=== PATIENT | female | born 1975 | race American Indian/Alaskan Native ===

== ENCOUNTER 2020-03-29 04:19 | Inpatient (IN) | payer OTHER ==
[2020-03-29 05:46] LABS: Hematocrit 30.1 % (30.3-42.9); Hemoglobin 9.1 gm/dl (10.1-14.3); Mean Corpuscular HGB Conc 30 % (30-34); Platelet Count 156 K/mm3 (140-440); Red Blood Count 5.12 M/mm3 (3.65-5.03)
[2020-03-29 06:01] LABS: Blood Urea Nitrogen 11 mg/dL (7-17); Calcium 8.9 mg/dL (8.4-10.2); Hemolysis Index 3
[2020-03-29 06:02] LABS: Mean Corpuscular Volume 59 fl (79-97); Red Cell Distribution Width 26.3 % (13.2-15.2)
[2020-03-29 06:03] LABS: BUN/Creatinine Ratio 18
[2020-03-29 06:59] LABS: Anisocytosis 1+; Total Cells Counted 100
[2020-03-29 07:00] LABS: Hypochromasia 2+; Platelet Estimate Consistent w Auto
[2020-03-29] MEDS ORDERED: FUROSEMIDE 40 MG/4 ML INJ IV ONE (07:54)
--- NOTE | 2020-03-29 07:59 | Emergency Department Report ---
ED Shortness of Breath HPI - General Chief Complaint: Dyspnea/Respdistress Stated Complaint: FLUID RETENTION Time Seen by Provider: 03/29/20 07:46 Source: patient, EMS Mode of arrival: Stretcher Limitations: Physical Limitation - History of Present Illness Initial Comments: Patient is 45-year-old female with history of hypertension, congestive heart cary lure and possibly liver cirrhosis. Patient presented to the ER complaining of difficulty in breathing and abdominal distention and bilateral lower extremity swelling for the last few days. Patient stated that she was taking Lasix but she stopped taking it. Patient stated that she drink alcohol daily. Patient denied any chest pain, fever or chills. Patient has significant orthopnea and is slightly tachypneic. MD Complaint: shortness of breath -: days(s) Severity: severe Pain Scale: 7 Known History Of: congestive heart failure - Related Data Previous Rx's Medication Instructions Recorded Last Taken Type HYDROcodone/APAP 5-325 [Sisters 1 each PO Q6HR PRN #10 tablet 07/14/15 Unknown Rx 5/325] Sulfamethoxazole/Trimethoprim 1 each PO Q12H #20 tablet 07/14/15 Unknown Rx [Bactrim DS TAB] Allergies Allergy/AdvReac Type Severity Reaction Status Date / Time No Known Allergies Allergy Verified 07/17/15 12:12 ED Review of Systems ROS: Stated complaint: FLUID RETENTION Other details as noted in HPI Comment: All other systems reviewed and negative Constitutional: denies: chills, fever Respiratory: orthopnea, shortness of breath, SOB with exertion, SOB at rest. denies: cough, wheezing Cardiovascular: dyspnea on exertion, orthopnea. denies: chest pain, palpitations Gastrointestinal: denies: abdominal pain, nausea, vomiting Musculoskeletal: denies: back pain Neurological: denies: headache, weakness, numbness, paresthesias, confusion ED Past Medical Hx - Past Medical History Previous Medical History?: Yes Hx Hypertension: Yes Hx Heart Attack/AMI: Yes - Surgical History Past Surgical History?: Yes Additional Surgical History: bilateral foot surgery as a child - Social History Smoking Status: Current Every Day Smoker Substance Use Type: None - Medications Home Medications: Home Medications Medication Instructions Recorded Confirmed Last Taken Type HYDROcodone/APAP 5-325 [[place]isters 1 each PO Q6HR PRN #10 tablet 07/14/15 Unknown Rx 5/325] Sulfamethoxazole/Trimethoprim 1 each PO Q12H #20 tablet 07/14/15 Unknown Rx [Bactrim DS TAB] ED Physical Exam - General Limitations: Physical Limitation General appearance: alert, in distress (Moderate respiratory distress) - Head Head exam: Present: atraumatic, normocephalic, normal inspection - Eye Eye exam: Present: normal appearance - ENT ENT exam: Present: normal exam, normal orophraynx, mucous membranes moist - Neck Neck exam: Present: normal inspection, full ROM. Absent: tenderness, meningismus, lymphadenopathy, thyromegaly - Respiratory Respiratory exam: Present: respiratory distress, rales, decreased breath sounds. Absent: wheezes, rhonchi, chest wall tenderness, accessory muscle use, pr olonged expiratory - Cardiovascular Cardiovascular Exam: Present: regular rate, normal rhythm, normal heart sounds - GI/Abdominal GI/Abdominal exam: Present: soft, normal bowel sounds. Absent: distended, tenderness, guarding, rebound, rigid, organomegaly, mass, bruit, pulsatile mass, hernia - Extremities Exam Extremities exam: Present: full ROM, normal capillary refill, pedal edema, other (Blisters to both lower extremities.). Absent: tenderness, joint swelling, calf tenderness - Back Exam Back exam: Present: normal inspection, full ROM. Absent: CVA tenderness (R), CVA tenderness (L) - Neurological Exam Neurological exam: Present: alert, oriented X3, CN II-XII intact. Absent: motor sensory deficit - Psychiatric Psychiatric exam: Present: normal mood - Skin Skin exam: Present: warm, intact, normal color ED Course Vital Signs 03/29/20 03/29/20 03/29/20 04:38 07:47 08:00 Temperature 97.7 F Pulse Rate 90 77 Respiratory 18 12 Rate Blood Pressure 156/129 Blood Pressure [Right] O2 Sat by Pulse 97 96 Oximetry 03/29/20 03/29/20 03/29/20 08:06 08:15 08:45 Temperature Pulse Rate 91 H 96 H 92 H Respiratory 23 28 H 29 H Rate Blood Pressure 182/98 182/113 Blood Pressure 170/105 [Right] O2 Sat by Pulse 98 96 Oximetry 03/29/20 03/29/20 09:26 09:30 Temperature Pulse Rate 92 H 89 Respiratory 18 20 Rate Blood Pressure 196/112 190/100 Blood Pressure [Right] O2 Sat by Pulse Oximetry ED Medical Decision Making - Lab Data Result diagrams: 03/29/20 05:21 03/29/20 05:21 - EKG Data -: EKG Interpreted by Me EKG shows normal: sinus rhythm Rate: normal - EKG Data Interpretation: no acute changes - Radiology Data Radiology results: report reviewed, image reviewed - Medical Decision Making Patient is 45-year-old female with history of hypertension, congestive heart failure and possibly liver cirrhosis. Patient presented to the ER complaining of difficulty in breathing and abdominal distention and bilateral lower extremity swelling for the last few days. Patient stated that she was taking Lasix but she stopped taking it. Patient stated that she drink alcohol daily. Patient denied any chest pain, fever or chills. Patient has significant orthopnea and is slightly tachypneic. EKG showed no ST elevation or depression. Chest x-ray showed bilateral pleural effusion and pulmonary edema. Labs reviewed and is unremarkable except for significantly elevated BNP of 4300. Patient received Lasix 60 mg IV and patient already put more than 1 L of urine. Patient stated that she is feeling better. I discussed the patient with Dr. Gore and he agreed to admit the patient to his service for further management. Critical Care Time: Yes Critical care time in (mins) excluding proc time.: 30 Critical care attestation.: If time is entered above; I have spent that time in minutes in the direct care of this critically ill patient, excluding procedure time. ED Disposition Clinical Impression: Acute respiratory distress, CHF exacerbation Disposition: OP ADMIT IP TO THIS HOSP Is pt being admited?: Yes Condition: Stable
[2020-03-29 08:28] LABS: INR 1.27 (0.87-1.13)
[2020-03-29 08:29] LABS: Partial Thromboplastin Time 29.8 Sec. (24.2-36.6)
[2020-03-29 08:41] LABS: Albumin 3.4 g/dL (3.9-5); Bilirubin,Direct 0.2 mg/dL (0-0.2)
[2020-03-29 09:49] LABS: Bilirubin,Urine NEG (Negative); Blood,Urine SM (Negative); Color,Urine Amber (Yellow); Mucus,Urine 2+ /HPF
[2020-03-29 09:55] LABS: Amphetamine Screen,Urine Negative; Benzodiazepines Screen,Urine Negative; Cocaine Screen,Urine Negative; Methadone Screen,Urine Negative; Opiate Screen,Urine Negative
[2020-03-29 10:13] LABS: Cannabinoid Screen,Urine Positive
--- NOTE | 2020-03-29 10:38 | XRay Report ---
CHEST 1 VIEW INDICATION / CLINICAL INFORMATION: Dyspnea. COMPARISON: None available. FINDINGS: SUPPORT DEVICES: None. HEART / MEDIASTINUM: No significant abnormality. LUNGS / PLEURA: Low lung volumes with mild right basilar haziness possibly representing atelectasis w ith small effusion. Left lung is clear. No pneumothorax. ADDITIONAL FINDINGS: Slightly sclerotic appearance of the posterior right fifth rib with nondisplaced fracture deformity. Age-indeterminate. IMPRESSION: 1. Age-indeterminate right posterior fifth rib nondisplaced fracture deformity. 2. Decreased right lung volume with mild right basilar haziness possibly representing atelectasis wit h small effusion. Signer Name: Zeus George MD Signed: 03/29/2020 10:33 AM Workstation Name: [id number]
--- NOTE | 2020-03-29 11:17 | History and Physical Report ---
History of Present Illness Date of examination: 03/29/20 Date of admission: 03/29/20 10:45 Chief complaint: Shortness of breath History of present illness: Patient is 45-year-old female with history of hypertension, congestive heart failure and possibly liver cirrhosis. Patient presented to the ER complaining of difficulty in breathing and abdominal distention and bilateral lower extremity swelling for the last few days. Patient stated that she was taking Lasix but she stopped taking it. Patient admits she drink alcohol daily, marijuana and tobacco use. Patient denied chest pain, fever or chills. Patient on oxygen per N/C. She said her stomach more distended than now about a month ago. ED Work up shows WBC 4.6, Hemoglobin 9.1, potassium 3.5, sodium 139, CR 0.6 Serum albumen 3.4 BNP 4379 Vital sign 190/100, Hr 89, respiration 20 and temp. 97.7 Urine toxicology positive for Marijuana EKG done negative for ST elevation or depression. Chest x-ray showed bilateral pleural effusion and pulmonary edema. Patient was given Lasix 60 mg IV and patient already put more than 1 L of urine. patient seen at bedside in ED patient on oxygen per N/c patient has generalized edema Bilateral leg edema with blisters Distended abdomen-will check CT of the abdomen reviewed lab, mar, and v/s Past History Past Medical History: heart failure, hypertension, liver disease Social history: smoking, alcohol abuse Family history: hypertension Medications and Allergies Allergies Allergy/AdvReac Type Severity Reaction Status Date / Time No Known Allergies Allergy Verified 07/17/15 12:12 Home Medications Medication Instructions Recorded Confirmed Last Taken Type HYDROcodone/APAP 5-325 [[place] 1 each PO Q6HR PRN #10 tablet 07/14/15 Unknown Rx 5/325] Sulfamethoxazole/Trimethoprim 1 each PO Q12H #20 tablet 07/14/15 Unknown Rx [Bactrim DS TAB] Active Meds: Active Medications Hydralazine HCl (Apresoline) 5 mg IV Q4HR PRN PRN Reason: Hypertension Review of Systems Constitutional: weight gain, weakness, chronic pain Cardiovascular: shortness of breath, dyspnea on exertion, high blood pressure, leg edema Respiratory: shortness of breath, congestion Exam - Constitutional Vitals: Temp Pulse Resp BP Pulse Ox 97.7 F 89 20 190/100 96 03/29/20 04:38 03/29/20 09:30 03/29/20 09:30 03/29/20 09:30 03/29/20 08:45 General appearance: Present: no acute distress, mild distress, well-nourished - EENT Eyes: Present: PERRL ENT: hearing intact, clear oral mucosa - Neck Neck: Present: supple, normal ROM - Respiratory Respiratory effort: normal, other (Shortness of breath) Respiratory: bilateral: CTA - Cardiovascular Heart rate: 89 Heart Sounds: Present: S1 & S2. Absent: rub, click - Extremities Extremities: pulses symmetrical Peripheral Pulses: within normal limits - Abdominal General gastrointestinal: Present: soft, non-tender, non-distended, normal bowel sounds Female genitourinary: Present: normal - Integumentary Integumentary: Present: clear, warm, dry - Musculoskeletal Musculoskeletal: strength equal bilaterally, generalized weakness - Psychiatric Psychiatric: appropriate mood/affect, intact judgment & insight, cooperative - Neurologic Neurologic: CNII-XII intact, moves all extremities - Allied Health Allied health notes reviewed: nursing HEART Score - HEART Score Troponin: Troponin T 0.021 ng/mL (0.00-0.029) 03/29/20 07:59 Results - Labs CBC & Chem 7: 03/29/20 05:21 03/29/20 05:21 Labs: Abnormal lab results 03/29/20 03/29/20 03/29/20 Range/Units 05:21 05:21 07:59 RBC 5.12 H (3.65-5.03) M/mm3 Hgb 9.1 L (10.1-14.3) gm/dl Hct 30.1 L (30.3-42.9) % MCV 59 L (79-97) fl MCH 18 L (28-32) pg RDW 26.3 H (13.2-15.2) % Seg Neuts % (Manual) 80.0 H (40.0-70.0) % Lymphocytes % (Manual) 9.0 L (13.4-35.0) % Lymphocytes # (Manual) 0.4 L (1.2-5.4) K/mm3 PT 16.2 H (12.2-14.9) Sec. INR 1.27 H (0.87-1.13) Potassium 3.5 L (3.6-5.0) mmol/L Carbon Dioxide 31 H (22-30) mmol/L Alkaline Phosphatase (35-129) units/L NT-Pro-B Natriuret Pep (0-450) pg/mL Total Protein (6.3-8.2) g/dL Albumin (3.9-5) g/dL 03/29/ Range/Units 07:59 RBC (3.65-5.03) M/mm3 Hgb (10.1-14.3) gm/dl Hct (30.3-42.9) % MCV (79-97) fl MCH (28-32) pg RDW (13.2-15.2) % Seg Neuts % (Manual) (40.0-70.0) % Lymphocytes % (Manual) (13.4-35.0) % Lymphocytes # (Manual) (1.2-5.4) K/mm3 PT (12.2-14.9) Sec. INR (0.87-1.13) Potassium (3.6-5.0) mmol/L Carbon Dioxide (22-30) mmol/L Alkaline Phosphatase 134 H (35-129) units/L NT-Pro-B Natriuret Pep 4379 H (0-450) pg/mL Total Protein 9.8 H (6.3-8.2) g/dL Albumin 3.4 L (3.9-5) g/dL Assessment and Plan - Patient Problems (1) Protein-calorie malnutrition, mild Current Visit: Yes Status: Acute Plan to address problem: Discussed healthy diet advised on Nutrition supplement Will Consult technical solutions director (2) Anemia Current Visit: Yes Status: Acute Plan to address problem: ? cause malnutrition/iron defficiency/chronic illness Monitor H/H Will transfuse PRBCs if needed Start iron and MVI supplement (3) Alcohol abuse Current Visit: Yes Status: Acute Plan to address problem: Discussed alcohol use cessation discussed consequence of alcohol use including cirrhosis of the liver and ascitis (4) Hypertension Current Visit: Yes Status: Acute Plan to address problem: Monitor blood pressure resume home bp med ECHO -f/u with result EKG done-no st depression or elevation Chest x-ray showed bilateral pleural effusion and pulmonary edema. (5) Acute respiratory distress Current Visit: Yes Status: Acute Plan to address problem: respiratory distress likely 2/2 acute CHF Continue diuretic respiratory care PRN bronchodilator and oxygen supplement PRN AGB (6) CHF exacerbation Current Visit: Yes Status: Acute Plan to address problem: Acute CHF likely 2/2 to noncompliance with medical regimen-diuretics Will start cardioprotectives ASA, BB, diuretics and statin ECHO ordered-f/u result Starch Mangle Tender consulted
[2020-03-29] MEDS ORDERED: hydrALAZINE 20 MG/1 ML INJ IV PRN (11:30)
[2020-03-29] MEDS ORDERED: FUROSEMIDE 40 MG/4 ML INJ ONE (11:35)
[2020-03-29] MEDS ORDERED: POTASSIUM CHLORIDE ER 20 MEQ TAB PO ONE (11:36)
[2020-03-29] MEDS ORDERED: ALBUTEROL 2.5 MG/3 ML NEBU IH PRN (11:38)
[2020-03-29] MEDS: POTASSIUM CHLORIDE ER 20 MEQ TAB PO SCH (11:40)
[2020-03-29] MEDS: FUROSEMIDE 40 MG/4 ML INJ IV SCH ×2 (11:40→18:23)
[2020-03-29] MEDS ORDERED: MULTIVITAMINS ,THERAPEUTIC TAB PO ONE (11:41)
[2020-03-29] MEDS: MULTIVITAMINS ,THERAPEUTIC TAB PO SCH (11:43)
[2020-03-29] MEDS ORDERED: carvediloL 6.25 MG TAB ONE (12:46)
[2020-03-29] MEDS: carvediloL 6.25 MG TAB PO SCH ×2 (12:48→21:54)
[2020-03-29] MEDS: FERROUS SULFATE 325 MG TAB PO SCH (13:06)
[2020-03-29] MEDS: ASPIRIN EC 81 MG TAB PO SCH (13:07)
[2020-03-29] MEDS ORDERED: ONDANSETRON 4 MG/2 ML INJ IV ONE (13:45)
[2020-03-29] MEDS ORDERED: ONDANSETRON 4 MG/2 ML INJ ONE (13:48)
[2020-03-30] MEDS: FUROSEMIDE 40 MG/4 ML INJ IV SCH ×2 (05:50→18:06)
[2020-03-30] MEDS: ASPIRIN EC 81 MG TAB PO SCH (10:06)
[2020-03-30] MEDS: MULTIVITAMINS ,THERAPEUTIC TAB PO SCH (10:06)
[2020-03-30] MEDS: carvediloL 6.25 MG TAB PO SCH ×2 (10:06→21:57)
[2020-03-30] MEDS: FERROUS SULFATE 325 MG TAB PO SCH (10:06)
[2020-03-30] MEDS: POTASSIUM CHLORIDE ER 20 MEQ TAB PO SCH (10:07)
--- NOTE | 2020-03-30 11:10 | Consultation ---
History of Present Illness Consult date: 03/30/20 Consult reason: hypertension History of present illness: This is a 45-year old Female with a history of chronic hypertension, noncompliant with her medications who presented with shortness of breath, orthopnea with significant bilateral lower extremity edema, edema extending upwards to her abdomen. Symptoms ongoing for several weeks. Blood pressure 170, systolic in the emergency department. Chest x-ray shows interstitial edema. Her EKG is sinus rhythm with low voltage. She was admitted with CHF. A cardiology consultation has been requested. Past History Past Medical History: heart failure, hypertension, liver disease Social history: smoking, alcohol abuse Family history: hypertension Medications and Allergies Allergies Allergy/AdvReac Type Severity Reaction Status Date / Time No Known Allergies Allergy Verified 07/17/15 12:12 Home Medications Medication Instructions Recorded Confirmed Last Taken Type HYDROcodone/APAP 5-325 [[place] 1 each PO Q6HR PRN #10 tablet 07/14/15 03/29/20 Unknown Rx 5/325] Sulfamethoxazole/Trimethoprim 1 each PO Q12H #20 tablet 07/14/15 03/29/20 Unknown Rx [Bactrim DS TAB] Active Meds: Active Medications Albuterol (Proventil) 2.5 mg IH Q4H PRN PRN Reason: Shortness Of Breath Aspirin (Halfprin Ec) 81 mg PO QDAY [facility] Last Admin: 03/30/20 10:06 Dose: 81 mg Documented by: Atorvastatin Calcium (Lipitor) 40 mg PO QHS [facility] Last Admin: 03/29/20 21:55 Dose: 40 mg Documented by: Carvedilol (Coreg) 6.25 mg PO BID [facility] Last Admin: 03/30/20 10:06 Dose: 6.25 mg Documented by: Ferrous Sulfate (Feosol) 325 mg PO QDAY [facility] Last Admin: 03/30/20 10:06 Dose: 325 mg Documented by: Furosemide (Lasix) 40 mg IV 0600,1800 [facility] Last Admin: 03/30/20 05:50 Dose: 40 mg Documented by: Hydralazine HCl (Apresoline) 5 mg IV Q4HR PRN PRN Reason: Hypertension Multivitamins (Theragran Tab) 1 each PO QDAY [facility] Last Admin: 03/30/20 10:06 Dose: 1 each Documented by: Potassium Chloride (K-Dur) 20 meq PO QDAY [facility] Last Admin: 03/30/20 10:07 Dose: 20 meq Documented by: Physical Examination Vital Signs Temp Pulse Resp BP Pulse Ox 97.7 F 90 18 156/129 97 03/29/20 04:38 03/29/20 04:38 03/29/20 04:38 03/29/20 04:38 03/29/20 04:38 Results 03/29/20 05:21 03/29/20 05:21 Assessment and Plan Congestive heart failure Hypertension Noncompliant with medications Echocardiogram for LVEF assessment. Fluid and sodium restriction. Daily weight. Continue IV diuretics. Further cardiac evaluation depends on clinical course.
[2020-03-30] MEDS: MILRINONE-D5W 20 MG/100 ML 20 MG/100 ML BAG IV SCH (19:56)
[2020-03-31] MEDS: FUROSEMIDE 40 MG/4 ML INJ IV SCH ×2 (05:26→18:16)
--- NOTE | 2020-03-31 06:35 | Progress Note ---
Assessment and Plan Assessment and Plan --Acute respiratory failure with hypoxia Current Visit: Yes Status: Acute Plan to address problem: respiratory distress likely 2/2 acute CHF Continue diuretic respiratory care PRN bronchodilator and oxygen supplement PRN ABG ECHO --CHF exacerbation Current Visit: Yes Status: Acute Plan to address problem: Acute CHF likely 2/2 to noncompliance with medical regimen-diuretics Will start cardioprotectives ASA, BB, diuretics and statin ECHO Platform Man consulted --Protein-calorie malnutrition, mild Current Visit: Yes Status: Acute Plan to address problem: Discussed healthy diet advised on Nutrition supplement Will Consult readiness paraprofessional --Anemia Current Visit: Yes Status: Acute Plan to address problem: ? cause malnutrition/iron defficiency/chronic illness Monitor H/H Will transfuse PRBCs if needed Start iron and MVI supplement --Alcohol abuse Current Visit: Yes Status: Acute Plan to address problem: Discussed alcohol use cessation discussed consequence of alcohol use including cirrhosis of the liver and ascitis --Hypertension Current Visit: Yes Status: Acute Plan to address problem: Monitor blood pressure resume home bp med ECHO -f/u with result EKG done-no st depression or elevation Chest x-ray showed bilateral pleural effusion and pulmonary edema. Subjective Date of service: 03/30/20 Principal diagnosis: CHF Exacerbation Interval history: Patient is 45-year-old female with history of hypertension, congestive heart failure and possibly liver cirrhosis. Patient presented to the ER complaining of difficulty in breathing and abdominal distention and bilateral lower extremity swelling for the last few days. Patient stated that she was taking Lasix but she stopped taking it. Patient admits she drink alcohol daily, marijuana and tobacco use. Patient denied chest pain, fever or chills. Patient on oxygen per N/C. She said her stomach more distended than now about a month ago. ED Work up shows WBC 4.6, Hemoglobin 9.1, potassium 3.5, sodium 139, CR 0.6 Serum albumen 3.4 BNP 4379 Vital sign 190/100, Hr 89, respiration 20 and temp. 97.7 Urine toxicology positive for Marijuana EKG done negative for ST elevation or depression. Chest x-ray showed bilateral pleural effusion and pulmonary edema. Patient was given Lasix 60 mg IV and patient already put more than 1 L of urine. Objective - Constitutional Vitals: Vital Signs - 12hr 03/30/20 03/30/20 03/30/20 19:33 20:13 23:34 Temperature 98.7 F 98.4 F Pulse Rate 91 H 91 H 90 Respiratory 18 18 Rate Blood Pressure 146/69 Blood Pressure 145/69 [Right] O2 Sat by Pulse 99 95 Oximetry 03/31/20 04:40 Temperature 98.3 F Pulse Rate 84 Respiratory 20 Rate Blood Pressure 131/69 Blood Pressure [Right] O2 Sat by Pulse 100 Oximetry General appearance: Present: mild distress, well-nourished - EENT Eyes: PERRL, EOM intact ENT: hearing intact, clear oral mucosa Ears: bilateral: normal - Neck Neck: supple, normal ROM - Respiratory Respiratory effort: normal Respiratory: bilateral: CTA, rales - Breasts Breasts: normal - Cardiovascular Heart rate: 78 Rhythm: regular Heart Sounds: Present: S1 & S2. Absent: gallop, rub Extremities: pulses intact, normal color, Full ROM, abnormal (Edema-pedal) - Gastrointestinal General gastrointestinal: Present: soft, non-tender, non-distended, normal bowel sounds - Genitourinary Female genitourinary: normal - Integumentary Integumentary: clear, warm, dry - Musculoskeletal Musculoskeletal: 1, strength equal bilaterally - Neurologic Neurologic: moves all extremities - Psychiatric Psychiatric: memory intact, appropriate mood/affect, intact judgment & insight - Allied health notes Allied health notes reviewed: nursing, case management - Labs CBC & Chem 7: 03/29/20 05:21 03/29/20 05:21 HEART Score - HEART Score Troponin: Troponin T 0.021 ng/mL (0.00-0.029) 03/29/20 14:40
--- NOTE | 2020-03-31 09:33 | Progress Note ---
Assessment and Plan Assessment and plan: --Acute respiratory failure with hypoxia Current Visit: Yes Status: Acute Plan to address problem: respiratory distress likely 2/2 acute CHF Continue diuretic respiratory care PRN bronchodilator and oxygen supplement PRN ABG ECHO --CHF exacerbation EF 25 to 30%[ Current Visit: Yes Status: Acute Plan to address problem: Acute CHF likely 2/2 to noncompliance with medical regimen-diuretics Will start cardioprotectives ASA, BB, diuretics and statin ECHO Papier Mache Molder consulted --Protein-calorie malnutrition, mild Current Visit: Yes Status: Acute Plan to address problem: Discussed healthy diet advised on Nutrition supplement Will Consult hot press operator --Anemia Current Visit: Yes Status: Acute Plan to address problem: ? cause malnutrition/iron defficiency/chronic illness Monitor H/H Will transfuse PRBCs if needed Start iron and MVI supplement --Alcohol abuse Current Visit: Yes Status: Acute Plan to address problem: Discussed alcohol use cessation discussed consequence of alcohol use including cirrhosis of the liver and ascitis --Hypertension Current Visit: Yes Status: Acute Plan to address problem: Monitor blood pressure resume home bp med ECHO -f/u with result EKG done-no st depression or elevation Chest x-ray showed bilateral pleural effusion and pulmonary edema. History Interval history: Patient is on milrinone drip started yesterday I have seen and examined patient at the bedside in her room this morning Patient's chart and medications reviewed Cardiology evaluation and recommendations noted and appreciated Patient admitted with acute on chronic systolic congestive heart failure Cardiology evaluated started on milrinone drip Patient tolerating the medicine Diuresing well Hospitalist Physical - Constitutional Vitals: Temp Pulse Resp BP Pulse Ox 98.3 F 84 18 131/69 96 03/31/20 04:40 03/31/20 04:40 03/31/20 08:00 03/31/20 04:40 03/31/20 08:00 General appearance: Present: mild distress, well-nourished - EENT Eyes: Present: PERRL, EOM intact - Neck Neck: Present: supple, normal ROM - Respiratory Respiratory effort: normal Respiratory: bilateral: diminished, negative: rales, rhonchi, wheezing - Cardiovascular Rhythm: regular Heart Sounds: Present: S1 & S2 Peripheral Pulses: within normal limits - Abdominal General gastrointestinal: soft, non-tender, non-distended, normal bowel sounds - Integumentary Integumentary: Present: clear, warm - Psychiatric Psychiatric: appropriate mood/affect, cooperative - Neurologic Neurologic: CNII-XII intact, moves all extremities HEART Score - HEART Score Troponin: Troponin T 0.021 ng/mL (0.00-0.029) 03/29/20 14:40 Results - Labs CBC & Chem 7: 03/29/20 05:21 03/29/20 05:21 Labs: Laboratory Last Values WBC 4.6 K/mm3 (4.5-11.0) 03/29/20 05:21 RBC 5.12 M/mm3 (3.65-5.03) H 03/29/20 05:21 Hgb 9.1 gm/dl (10.1-14.3) L 03/29/20 05:21 Hct 30.1 % (30.3-42.9) L 03/29/20 05:21 MCV 59 fl (79-97) L 03/29/20 05:21 MCH 18 pg (28-32) L 03/29/20 05:21 MCHC 30 % (30-34) 03/29/20 05:21 RDW 26.3 % (13.2-15.2) H 03/29/20 05:21 Plt Count 156 K/mm3 (140-440) 03/29/20 05:21 Add Manual Diff Complete 03/29/20 05:21 Total Counted 100 03/29/20 05:21 Seg Neuts % (Manual) 80.0 % (40.0-70.0) H 03/29/20 05:21 Band Neutrophils % 0 % 03/29/20 05:21 Lymphocytes % (Manual) 9.0 % (13.4-35.0) L 03/29/20 05:21 Reactive Lymphs % (Man) 0 % 03/29/20 05:21 Monocytes % (Manual) 7.0 % (0.0-7.3) 03/29/20 05:21 Eosinophils % (Manual) 3.0 % (0.0-4.3) 03/29/20 05:21 Basophils % (Manual) 1.0 % (0.0-1.8) 03/29/20 05:21 Metamyelocytes % 0 % 03/29/20 05:21 Myelocytes % 0 % 03/29/20 05:21 Promyelocytes % 0 % 03/29/20 05:21 Blast Cells % 0 % 03/29/20 05:21 Nucleated RBC % Not Reportable 03/29/20 05:21 Seg Neutrophils # Man 3.7 K/mm3 (1.8-7.7) 03/29/20 05:21 Band Neutrophils # 0.0 K/mm3 03/29/20 05:21 Lymphocytes # (Manual) 0.4 K/mm3 (1.2-5.4) L 03/29/20 05:21 Abs React Lymphs (Man) 0.0 K/mm3 03/29/20 05:21 Monocytes # (Manual) 0.3 K/mm3 (0.0-0.8) 03/29/20 05:21 Eosinophils # (Manual) 0.1 K/mm3 (0.0-0.4) 03/29/20 05:21 Basophils # (Manual) 0.0 K/mm3 (0.0-0.1) 03/29/20 05:21 Metamyelocytes # 0.0 K/mm3 03/29/20 05:21 Myelocytes # 0.0 K/mm3 03/29/20 05:21 Promyelocytes # 0.0 K/mm3 03/29/20 05:21 Blast Cells # 0.0 K/mm3 03/29/20 05:21 WBC Morphology Not Reportable 03/29/20 05:21 Hypersegmented Neuts Not Reportable 03/29/20 05:21 Hyposegmented Neuts Not Reportable 03/29/20 05:21 Hypogranular Neuts Not Reportable 03/29/20 05:21 Smudge Cells Not Reportable 03/29/20 05:21 Toxic Granulation Not Reportable 03/29/20 05:21 Toxic Vacuolation Not Reportable 03/29/20 05:21 Dohle Bodies Not Reportable 03/29/20 05:21 Pelger-Huet Anomaly Not Reportable 03/29/20 05:21 Rashawn Rods Not Reportable 03/29/20 05:21 Platelet Estimate Consistent w auto 03/29/20 05:21 Clumped Platelets Not Reportable 03/29/20 05:21 Plt Clumps, EDTA Not Reportable 03/29/20 05:21 Large Platelets Not Reportable 03/29/20 05:21 Giant Platelets Not Reportable 03/29/20 05:21 Platelet Satelliting Not Reportable 03/29/20 05:21 Plt Morphology Comment Not Reportable 03/29/20 05:21 RBC Morphology Not Reportable 03/29/20 05:21 Dimorphic RBCs Not Reportable 03/29/20 05:21 Polychromasia Not Reportable 03/29/20 05:21 Hypochromasia 2+ 03/29/20 05:21 Poikilocytosis Not Reportable 03/29/20 05:21 Anisocytosis 1+ 03/29/20 05:21 Microcytosis 1+ 03/29/20 05:21 Macrocytosis Not Reportable 03/29/20 05:21 Spherocytes Not Reportable 03/29/20 05:21 Pappenheimer Bodies Not Reportable 03/29/20 05:21 Sickle Cells Not Reportable 03/29/20 05:21 Target Cells Not Reportable 03/29/20 05:21 Tear Drop Cells Not Reportable 03/29/20 05:21 Ovalocytes Not Reportable 03/29/20 05:21 Helmet Cells Not Reportable 03/29/20 05:21 [place] Bodies Not Reportable 03/29/20 05:21 [place] Rings Not Reportable 03/29/20 05:21 Brian Cells Not Reportable 03/29/20 05:21 Bite Cells Not Reportable 03/29/20 05:21 Crenated Cell Not Reportable 03/29/20 05:21 Elliptocytes Not Reportable 03/29/20 05:21 Acanthocytes (Spur) Not Reportable 03/29/20 05:21 Rouleaux Not Reportable 03/29/20 05:21 Hemoglobin C Crystals Not Reportable 03/29/20 05:21 Schistocytes Not Reportable 03/29/20 05:21 Malaria parasites Not Reportable 03/29/20 05:21 Edgard Bodies Not Reportable 03/29/20 05:21 Hem Pathologist Commnt No 03/29/20 05:21 PT 16.2 Sec. (12.2-14.9) H 03/29/20 07:59 INR 1.27 (0.87-1.13) H 03/29/20 07:59 APTT 29.8 Sec. (24.2-36.6) 03/29/20 07:59 Sodium 139 mmol/L (137-145) 03/29/20 05:21 Potassium 3.5 mmol/L (3.6-5.0) L 03/29/20 05:21 Chloride 98.8 mmol/L (98-107) 03/29/20 05:21 Carbon Dioxide 31 mmol/L (22-30) H 03/29/20 05:21 Anion Gap 13 mmol/L 03/29/20 05:21 BUN 11 mg/dL (7-17) 03/29/20 05:21 Creatinine 0.6 mg/dL (0.6-1.2) 03/29/20 05:21 Estimated GFR > 60 ml/min 03/29/20 05:21 BUN/Creatinine Ratio 18 % 03/29/20 05:21 Glucose 92 mg/dL (65-100) 03/29/20 05:21 Calcium 8.9 mg/dL (8.4-10.2) 03/29/20 05:21 Phosphorus 4.20 mg/dL (2.5-4.5) 03/30/20 04:42 Magnesium 1.90 mg/dL (1.7-2.3) 03/30/20 04:42 Total Bilirubin 0.70 mg/dL (0.1-1.2) 03/29/20 07:59 Direct Bilirubin 0.2 mg/dL (0-0.2) 03/29/20 07:59 Indirect Bilirubin 0.5 mg/dL 03/29/20 07:59 AST 26 units/L (5-40) 03/29/20 07:59 ALT 17 units/L (7-56) 03/29/20 07:59 Alkaline Phosphatase 134 units/L (35-129) H 03/29/20 07:59 Troponin T 0.021 ng/mL (0.00-0.029) 03/29/20 14:40 NT-Pro-B Natriuret Pep 4379 pg/mL (0-450) H 03/29/20 07:59 Total Protein 9.8 g/dL (6.3-8.2) H 03/29/20 07:59 Albumin 3.4 g/dL (3.9-5) L 03/29/20 07:59 Albumin/Globulin Ratio 0.5 % 03/29/20 07:59 Urine Color Basilia (Yellow) 03/29/20 09:37 Urine Turbidity Clear (Clear) 03/29/20 09:37 Urine pH 5.0 (5.0-7.0) 03/29/20 09:37 Ur Specific [place] 1.029 (1.003-1.030) 03/29/20 09:37 Urine Protein 100 mg/dl mg/dL (Negative) 03/29/20 09:37 Urine Glucose (UA) Neg mg/dL (Negative) 03/29/20 09:37 Urine Ketones Neg mg/dL (Negative) 03/29/20 09:37 Urine Blood Sm (Negative) 03/29/20 09:37 Urine Nitrite Neg (Negative) 03/29/20 09:37 Urine Bilirubin Neg (Negative) 03/29/20 09:37 Urine Urobilinogen 4.0 mg/dL (<2.0) 03/29/20 09:37 Ur Leukocyte Esterase Neg (Negative) 03/29/20 09:37 Urine WBC (Auto) 3.0 /HPF (0.0-6.0) 03/29/20 09:37 Urine RBC (Auto) 15.0 /HPF (0.0-6.0) 03/29/20 09:37 U Epithel Cells (Auto) 2.0 /HPF (0-13.0) 03/29/20 09:37 Urine Mucus 2+ /HPF 03/29/20 09:37 Urine Opiates Screen Negative 03/29/20 09:37 Urine Methadone Screen Negative 03/29/20 09:37 Ur Barbiturates Screen Negative 03/29/20 09:37 Ur Phencyclidine Scrn Negative 03/29/20 09:37 Ur Amphetamines Screen Negative 03/29/20 09:37 U Benzodiazepines Scrn Negative 03/29/20 09:37 Urine Cocaine Screen Negative 03/29/20 09:37 U Marijuana (THC) Screen Positive 03/29/20 09:37 Drugs of Abuse Note Disclamer 03/29/20 09:37 - Diagnostic Impressions Diagnostic Impressions: Echocardiogram 03/29/20 11:07 Transthoracic Echocardiogram Indication: Hypertension BP: 176/95 Conclusions *4-chamber cardiomyopathy. *Global left ventricular systolic function is severely decreased. *The estimated ejection fraction is 25-30%. *Mild to moderate concentric left ventricular hypertrophy is observed. *There is mild mitral regurgitation. *There is mild tricuspid regurgitation. *There is mild-moderate pulmonary hypertension. *The right ventricular systolic pressure is calculated at 42 mmHg. *A significant left pleural effusion is present. *Only a trivial pericardial effusion is visualized. Findings Procedure Info: The study quality is good. Left Ventricle: The left ventricular chamber size is mildly dilated. Mild to moderate concentric left ventricular hypertrophy is observed. Global left ventricular systolic function is severely decreased. The estimated ejection fraction is 25-30%. The left ventricular diastolic filling pattern is consistent with pseudonormalization. Left Atrium: The left atrium is moderately dilated. Right Ventricle: The right ventricle is mild to moderately dilated. The right ventricular global systolic function is moderately reduced. Right Atrium: The right atrium is moderately dilated. Aortic Valve: The aortic valve is trileaflet. The aortic valve leaflets are mildly thickened. There is trace of aortic regurgitation. There is no evidence of aortic stenosis. Mitral Valve: The mitral valve leaflets are mildly thickened. There is mild mitral regurgitation. There is no evidence of mitral stenosis. Tricuspid Valve: The tricuspid valve leaflets are normal. There is mild tricuspid regurgitation. The right ventricular systolic pressure is calculated at 42 mmHg. There is evidence of mild pulmonary hypertension. There is no tricuspid stenosis. Pulmonic Valve: The pulmonic valve appears normal. There is trace pulmonic regurgitation. There is no pulmonic stenosis. Pericardium: A trivial pericardial effusion is visualized. A left pleural effusion is present. Aorta: There is no dilatation of the ascending aorta. There is no dilatation of the aortic root. Venous: The inferior vena cava appears normal in size. Measurements Chambers 2D Name Value Normal Range IVSd (2D) 1.29 cm (0.6 - 1.1) LVPWd (2D) 1.24 cm (0.6 - 1.1) LVIDd (2D) 4.1 cm (3.7 - 5.6) LVIDs (2D) 2.98 cm (2 - 3.8) LV FS (2D) 27.17 % - EF Teichholz (2D) 53.38 % - Ao root diameter (2D) 2.08 cm (2 - 3.7) Volumes/Mass Name Value Normal Range LA ESV SP 4CH (A/L) 31.23 ml - LA ESV SP 2CH (A/L) 66.04 ml - LA ESV BP (A/L) 48.25 ml - LA ESV SP 4CH (MOD) 32.48 ml - LA ESV SP 2CH (MOD) 63.12 ml - LV EDV SP 4CH (MOD) 74.94 ml - LV ESV SP 4CH (MOD) 36.6 ml - EF SP 4CH (MOD) 51.16 % - LV EDV SP 2CH (MOD) 97.97 ml - LV ESV SP 2CH (MOD) 43.65 ml - EF SP 2CH (MOD) 55.45 % - LV EDV BP 92.11 ml - LV ESV BP 43.3 ml - BP EF (MOD) 52.99 % - Diastolic/Systolic Function Name Value Normal Range MV E-wave Vmax 1.02 m/sec - MV deceleration time 101.98 msec - MV A-wave Vmax 0.51 m/sec - MV E:A ratio 2.01 ratio - Aortic Valve Name Value Normal Range AV Vmax 1.23 m/sec - AV VTI 21.91 cm - AV peak gradient 6.04 mmHg - AV mean gradient 2.91 mmHg - LVOT diameter 1.72 cm - LVOT Vmax 0.95 m/sec - LVOT VTI 16.52 cm - LVOT peak gradient 3.61 mmHg - LVOT mean gradient 1.48 mmHg - SV LVOT 38.37 ml - RADHA (continuity Vmax) 1.8 cm2 - RADHA (continuity VTI) 1.75 cm2 - Ascending Ao 1.99 cm - Tricuspid Valve Name Value Normal Range TV E-wave Vmax 0.61 m/sec - TR Vmax 3 m/sec - TR peak gradient 36.05 mmHg - RVSP 42 mmHg - Pulmonic Valve/Qp:Qs Name Value Normal Range PV Vmax 0.9 m/sec - PV peak gradient 3.23 mmHg - RVOT Vmax 0.55 m/sec - RVOT VTI 10.36 cm - RVOT peak gradient 1.2 mmHg - PV acceleration time 110.37 msec - Kemp/IV: Voiding Method Indwelling Catheter IV Catheter Type [Left INT / Saline Lock Antecubital] Active Medications - Current Medications Current Medications: Generic Name Dose Route Start Last Admin Trade Name Freq PRN Reason Stop Dose Admin Albuterol 2.5 mg 03/29/20 11:38 Proventil IH Q4H PRN Shortness Of Breath Aspirin 81 mg 03/29/20 12:00 03/30/20 10:06 Halfprin Ec PO 81 mg QDAY LARA Administration Atorvastatin Calcium 40 mg 03/29/20 22:00 03/30/20 21:58 Lipitor PO 40 mg QHS LARA Administration Carvedilol 6.25 mg 03/29/20 12:00 03/30/20 21:57 Coreg PO 6.25 mg BID LARA Administration Ferrous Sulfate 325 mg 03/29/20 12:00 03/30/20 10:06 Feosol PO 325 mg QDAY LARA Administration Furosemide 40 mg 03/29/20 11:21 03/31/20 05:26 Lasix IV 40 mg 0600,1800 LARA Administration Hydralazine HCl 5 mg 03/29/20 11:30 Apresoline IV Q4HR PRN Hypertension Milrinone Lactate/Dextrose 20 mg in 100 mls @ 5.767 mls/hr 03/30/20 19:00 03/30/20 19:56 Milrinone-D5w 20 Mg/100 Ml IV 04/02/20 18:59 0.375 mcg/kg/min TITR LARA 5.767 mls/hr Administration 0.375 MCG/KG/MIN Lisinopril 5 mg 03/31/20 10:00 Zestril PO QDAY [facility] Multivitamins 1 each 03/29/20 12:00 03/30/20 10:06 Theragran Tab PO 1 each QDAY [facility] Administration Spironolactone 25 mg 03/31/20 10:00 Aldactone PO QDAY [facility]
[2020-03-31] MEDS: FERROUS SULFATE 325 MG TAB PO SCH (09:47)
[2020-03-31] MEDS: ASPIRIN EC 81 MG TAB PO SCH (09:47)
[2020-03-31] MEDS: LISINOPRIL 5 MG TAB PO SCH (09:47)
[2020-03-31] MEDS: carvediloL 6.25 MG TAB PO SCH ×2 (09:48→21:05)
[2020-03-31] MEDS: MULTIVITAMINS ,THERAPEUTIC TAB PO SCH (09:48)
[2020-03-31] MEDS: SPIRONOLACTONE 25 MG TAB PO SCH (09:51)
[2020-03-31] MEDS: MILRINONE-D5W 20 MG/100 ML 20 MG/100 ML BAG IV SCH (09:52)
--- NOTE | 2020-03-31 10:19 | Consultation ---
History of Present Illness Consult date: 03/31/20 Reason for consult: dyspnea, pleural effusion History of present illness: Patient is 45-year-old female with history of hypertension, congestive heart failure and possibly liver cirrhosis. Patient presented to the ER complaining of difficulty in breathing and abdominal distention and bilateral lower extremity swelling for the last few days. Patient stated that she was taking Lasix but she stopped taking it. Patient admits she drink alcohol daily, marijuana and tobacco use. Patient denied chest pain, fever or chills. Patient on oxygen per N/C. She said her stomach more distended than now about a month ago. Urine toxicology positive for Marijuana EKG done negative for ST elevation or depression. Chest x-ray showed bilateral pleural effusion and pulmonary edema. Patient was given Lasix 60 mg IV and patient already put out more than 1 L of urine. Patient has history of smoking. 1 Pack / week x 30 years. Counseled to stop smoking. Not . No children. No Known drug allergies. Patient alert, awake. Resting on room air. O2 saturation reported 100%. Patient has markedly distended abdomen. Past History Past Medical History: heart failure, hypertension, liver disease Social history: smoking, alcohol abuse Family history: hypertension Medications and Allergies Allergies Allergy/AdvReac Type Severity Reaction Status Date / Time No Known Allergies Allergy Verified 07/17/15 12:12 Home Medications Medication Instructions Recorded Confirmed Last Taken Type HYDROcodone/APAP 5-325 [Libby 1 each PO Q6HR PRN #10 tablet 07/14/15 03/29/20 Unknown Rx 5/325] Sulfamethoxazole/Trimethoprim 1 each PO Q12H #20 tablet 07/14/15 03/29/20 Unknown Rx [Bactrim DS TAB] Active Meds: Active Medications Albuterol (Proventil) 2.5 mg IH Q4H PRN PRN Reason: Shortness Of Breath Aspirin (Halfprin Ec) 81 mg PO QDAY [facility] Last Admin: 03/31/20 09:47 Dose: 81 mg Documented by: Atorvastatin Calcium (Lipitor) 40 mg PO QHS [facility] Last Admin: 03/30/20 21:58 Dose: 40 mg Documented by: Carvedilol (Coreg) 6.25 mg PO BID [facility] Last Admin: 03/31/20 09:48 Dose: 6.25 mg Documented by: Ferrous Sulfate (Feosol) 325 mg PO QDAY [facility] Last Admin: 03/31/20 09:47 Dose: 325 mg Documented by: Furosemide (Lasix) 40 mg IV 0600,1800 [facility] Last Admin: 03/31/20 05:26 Dose: 40 mg Documented by: Hydralazine HCl (Apresoline) 5 mg IV Q4HR PRN PRN Reason: Hypertension Milrinone Lactate/Dextrose (Milrinone-D5w 20 Mg/100 Ml) 20 mg in 100 mls @ 5.767 mls/hr IV TITR [facility] Stop: 04/02/20 18:59 Last Admin: 03/31/20 09:52 Dose: 0.375 mcg/kg/min, 5.767 mls/hr Documented by: Lisinopril (Zestril) 5 mg PO QDAY [facility] Last Admin: 03/31/20 09:47 Dose: 5 mg Documented by: Multivitamins (Theragran Tab) 1 each PO QDAY [facility] Last Admin: 03/31/20 09:48 Dose: 1 each Documented by: Spironolactone (Aldactone) 25 mg PO QDAY [facility] Last Admin: 03/31/20 09:51 Dose: 25 mg Documented by: Review of Systems All systems: negative Physical Examination Vital signs: Vital Signs Temp Pulse Resp BP Pulse Ox 97.7 F 90 18 156/129 97 03/29/20 04:38 03/29/20 04:38 03/29/20 04:38 03/29/20 04:38 03/29/20 04:38 General appearance: alert, appears uncomfortable Eyes: non-icteric ENT: oropharynx moist Neck: supple Effort: normal Ascultation: Bilateral: diminished breath sounds (at the bases.) Cardiovascular: regular rate and rhythm Gastrointestinal: hypoactive bowel sounds, tender, other (Distended.) Integumentary: normal, decubitus ulcer, other (Bullous lesins at the ankles.) Extremities: no cyanosis, edema Musculoskeletal: no deformities Gait: other (Unable to assess now.) normal mental status, non-focal exam, pupils equal and round anxious Results - Laboratory Findings CBC and BMP: 03/29/20 05:21 03/29/20 05:21 PT/INR, D-dimer PT 16.2 Sec. (12.2-14.9) H 03/29/20 07:59 INR 1.27 (0.87-1.13) H 03/29/20 07:59 Abnormal lab findings: Abnormal Labs 03/29/20 03/29/20 03/29/20 05:21 05:21 07:59 RBC 5.12 H Hgb 9.1 L Hct 30.1 L MCV 59 L MCH 18 L RDW 26.3 H Seg Neuts % (Manual) 80.0 H Lymphocytes % (Manual) 9.0 L Lymphocytes # (Manual) 0.4 L PT 16.2 H INR 1.27 H Potassium 3.5 L Carbon Dioxide 31 H Alkaline Phosphatase NT-Pro-B Natriuret Pep Total Protein Albumin 03/29/20 07:59 RBC Hgb Hct MCV MCH RDW Seg Neuts % (Manual) Lymphocytes % (Manual) Lymphocytes # (Manual) PT INR Potassium Carbon Dioxide Alkaline Phosphatase 134 H NT-Pro-B Natriuret Pep 4379 H Total Protein 9.8 H Albumin 3.4 L - Diagnostic Findings Chest x-ray: report reviewed, image reviewed Additional studies: CHEST 1 VIEW 03/29/20 INDICATION / CLINICAL INFORMATION: Dyspnea. COMPARISON: None available. FINDINGS: SUPPORT DEVICES: None. HEART / MEDIASTINUM: No significant abnormality. LUNGS / PLEURA: Low lung volumes with mild right basilar haziness possibly representing atelectasis with small effusion. Left lung is clear. No pneumothorax. ADDITIONAL FINDINGS: Slightly sclerotic appearance of the posterior right fifth rib with nondisplaced fracture deformity. Age-indeterminate. IMPRESSION: 1. Age-indeterminate right posterior fifth rib nondisplaced fracture deformity. 2. Decreased right lung volume with mild right basilar haziness possibly representing atelectasis with small effusion. Assessment and Plan Patient is 45-year-old female with history of hypertension, congestive heart failure and possibly liver cirrhosis. Patient presented to the ER complaining of difficulty in breathing and abdominal distention and bilateral lower extremity swelling for the last few days. Patient stated that she was taking Lasix but she stopped taking it. Patient admits she drink alcohol daily, marijuana and tobacco use. Patient denied chest pain, fever or chills. Patient on oxygen per N/C. She said her stomach more distended than now about a month ago. Urine toxicology positive for Marijuana EKG done negative for ST elevation or depression. Chest x-ray showed bilateral pleural effusion and pulmonary edema. Patient was given Lasix 60 mg IV and patient already put out more than 1 L of urine. Patient has history of smoking. 1 Pack / week x 30 years. Counseled to stop smoking. Not . No children. No Known drug allergies. Patient alert, awake. Resting on room air. O2 saturation reported 100%. Patient has markedly distended abdomen. - Patient Problems (1) Acute respiratory distress Current Visit: Yes Status: Acute Plan to address problem: O2 2 litres via nasal canula Albuterol/atrovent aerosol treatments ABGs on room air. (2) Alcohol abuse Current Visit: Yes Status: Acute Plan to address problem: Management as per primary care. (3) CHF exacerbation Current Visit: Yes Status: Acute Plan to address problem: Management as per cardiology. (4) Hypertension Current Visit: Yes Status: Acute Plan to address problem: Management as per primary care. (5) Pleural effusion, right Current Visit: Yes Status: Acute Plan to address problem: Pleural effusion likely secondary to ascitis. Recommend Paracentesis first. Recommend ultrasound of chest.
--- NOTE | 2020-03-31 10:41 | Progress Note ---
Assessment and Plan Congestive heart failure Dilated Cardiomyopathy Echo this admission shows 4 chamber dilated cardiomyopathy, ejection fraction 25-30% 2017 [facility] at [facility] [place] reports normal coronaries 2017 Echo at [facility] [place] reports LVEF 50% Hypertension Noncompliant with medications Recommendations: Advised fluid and sodium restriction. Daily weight. Continue aggressive medical therapy for systolic heart failure. Subjective Date of service: 03/31/20 Principal diagnosis: CHF Exacerbation Interval history: Patient is resting in bed comfortably. IV milrinone continues. Objective Vital Signs Temp Pulse Resp BP BP Pulse Ox 03/31/20 09:47 83 148/73 03/31/20 09:38 98.0 F 85 20 148/73 100 03/31/20 08:00 18 96 03/31/20 04:40 98.3 F 84 20 131/69 100 03/30/20 23:34 98.4 F 90 18 145/69 95 03/30/20 20:13 91 H 03/30/20 19:33 98.7 F 91 H 18 146/69 99 03/30/20 15:08 98.4 F 83 20 134/69 100 03/30/20 11:12 98.3 F 88 20 128/62 100 - Physical Examination General: No Apparent Distress HEENT: Positive: PERRL Cardiac: Positive: Reg Rate and Rhythm Lungs: Positive: Decreased Breath Sounds Extremities: Present: edema
[2020-04-01] MEDS: MILRINONE-D5W 20 MG/100 ML 20 MG/100 ML BAG IV SCH ×2 (02:12→17:52)
[2020-04-01] MEDS: FUROSEMIDE 40 MG/4 ML INJ IV SCH ×3 (05:44→17:49)
[2020-04-01] MEDS: MULTIVITAMINS ,THERAPEUTIC TAB PO SCH (09:39)
[2020-04-01] MEDS: carvediloL 6.25 MG TAB PO SCH ×2 (09:39→22:44)
[2020-04-01] MEDS: SPIRONOLACTONE 25 MG TAB PO SCH (09:39)
[2020-04-01] MEDS: FERROUS SULFATE 325 MG TAB PO SCH (09:39)
[2020-04-01] MEDS: ASPIRIN EC 81 MG TAB PO SCH (09:39)
--- NOTE | 2020-04-01 10:14 | Ultrasound Report ---
US CHEST INDICATION / CLINICAL INFORMATION: Pleural effusion.. COMPARISON: None available. FINDINGS: Moderately large right pleural effusion with an estimated volume of 1903 mL. No left pleural effusion. Signer Name: Fadumo Bernal MD Signed: 04/01/2020 10:10 AM Workstation Name: [id number]
[2020-04-01] MEDS: LISINOPRIL 5 MG TAB PO SCH (10:22)
--- NOTE | 2020-04-01 10:24 | Progress Note ---
Assessment and Plan Systolic heart failure, uncertain duration Dilated Cardiomyopathy Echo this admission shows 4 chamber dilated cardiomyopathy, ejection fraction 25-30% 2017 [place] [facility] [place] 2017 [place] [facility] [place] [place] LVEF 50% Right Pleural effusion Hypertension Noncompliant with medications Recommendations: Advised fluid and sodium restriction. Daily weight. Continue aggressive medical therapy for systolic heart failure including a trial of IV milrinone therapy. Subjective Date of service: 04/01/20 Principal diagnosis: CHF Exacerbation Interval history: No cardiac complaints. IV milrinone continues. No events on bus monitor. Objective Vital Signs Temp Pulse Resp BP Pulse Ox 04/01/20 08:54 20 04/01/20 08:46 98.8 F 90 16 120/65 100 04/01/20 03:50 99.0 F 83 18 116/58 99 04/01/20 02:07 84 110/52 98 04/01/20 00:00 89 03/31/20 23:38 97.5 F L 83 20 89/47 97 03/31/20 19:22 98.6 F 88 18 135/62 100 03/31/20 18:17 18 116/58 03/31/20 15:08 99.2 F 87 20 103/48 96 03/31/20 12:00 84 03/31/20 11:35 98.1 F 83 20 122/63 100 - Physical Examination General: No Apparent Distress HEENT: Positive: PERRL Neck: Positive: trachea midline Cardiac: Positive: Reg Rate and Rhythm Lungs: Positive: Decreased Breath Sounds Neuro: Positive: Grossly Intact Extremities: Present: edema, Other (bilateral LE blisters and ulcers)
--- NOTE | 2020-04-01 12:16 | Progress Note ---
Assessment and Plan Assessment and plan: --CHF exacerbation EF 25 to 30%[ Current Visit: Yes Status: Acute Plan to address problem: Acute CHF likely 2/2 to noncompliance with medical regimen-diuretics Will start cardioprotectives ASA, BB, diuretics and statin Patient is receiving milrinone drip per cardiology --Acute respiratory failure with hypoxia Current Visit: Yes Status: Acute Plan to address problem: respiratory distress likely 2/2 acute CHF Continue diuretic, Nebulizers ECHO for LV function ejection fraction --Protein-calorie malnutrition, mild Current Visit: Yes Status: Acute Plan to address problem: Discussed healthy diet advised on Nutrition supplement Will Consult technical staff engineer --Anemia Current Visit: Yes Status: Acute Plan to address problem: ? cause malnutrition/iron defficiency/chronic illness Monitor H/H Will transfuse PRBCs if needed Start iron and MVI supplement --Alcohol abuse Current Visit: Yes Status: Acute Plan to address problem: Discussed alcohol use cessation discussed consequence of alcohol use including cirrhosis of the liver and ascitis --Hypertension Current Visit: Yes Status: Acute Plan to address problem: Monitor blood pressure resume home bp med ECHO -f/u with result EKG done-no st depression or elevation Chest x-ray showed bilateral pleural effusion and pulmonary edema. History Interval history: I have seen and examined the patient at the bedside patient's chart and medications reviewed Patient feels slightly better patient is receiving milrinone drip per cardiology Denies chest pain or shortness of breath Vital signs noted Hospitalist Physical - Constitutional Vitals: Temp Pulse Resp BP Pulse Ox 98.8 F 90 20 120/65 100 04/01/20 08:46 04/01/20 08:46 04/01/20 08:54 04/01/20 08:46 04/01/20 08:46 General appearance: Present: mild distress, well-nourished - EENT Eyes: Present: PERRL, EOM intact - Neck Neck: Present: supple, normal ROM - Respiratory Respiratory effort: normal Respiratory: bilateral: diminished, rales, negative: rhonchi, wheezing - Cardiovascular Rhythm: regular Heart Sounds: Present: S1 & S2 - Extremities Extremities: no ischemia, No edema - Abdominal General gastrointestinal: soft, non-tender, non-distended, normal bowel sounds - Integumentary Integumentary: Present: clear, warm - Psychiatric Psychiatric: appropriate mood/affect, memory intact - Neurologic Neurologic: moves all extremities HEART Score - HEART Score Troponin: Troponin T 0.021 ng/mL (0.00-0.029) 03/29/20 14:40 Results - Labs CBC & Chem 7: 03/29/20 05:21 03/29/20 05:21 Labs: Laboratory Last Values WBC 4.6 K/mm3 (4.5-11.0) 03/29/20 05:21 RBC 5.12 M/mm3 (3.65-5.03) H 03/29/20 05:21 Hgb 9.1 gm/dl (10.1-14.3) L 03/29/20 05:21 Hct 30.1 % (30.3-42.9) L 03/29/20 05:21 MCV 59 fl (79-97) L 03/29/20 05:21 MCH 18 pg (28-32) L 03/29/20 05:21 MCHC 30 % (30-34) 03/29/20 05:21 RDW 26.3 % (13.2-15.2) H 03/29/20 05:21 Plt Count 156 K/mm3 (140-440) 03/29/20 05:21 Add Manual Diff Complete 03/29/20 05:21 Total Counted 100 03/29/20 05:21 Seg Neuts % (Manual) 80.0 % (40.0-70.0) H 03/29/20 05:21 Band Neutrophils % 0 % 03/29/20 05:21 Lymphocytes % (Manual) 9.0 % (13.4-35.0) L 03/29/20 05:21 Reactive Lymphs % (Man) 0 % 03/29/20 05:21 Monocytes % (Manual) 7.0 % (0.0-7.3) 03/29/20 05:21 Eosinophils % (Manual) 3.0 % (0.0-4.3) 03/29/20 05:21 Basophils % (Manual) 1.0 % (0.0-1.8) 03/29/20 05:21 Metamyelocytes % 0 % 03/29/20 05:21 Myelocytes % 0 % 03/29/20 05:21 Promyelocytes % 0 % 03/29/20 05:21 Blast Cells % 0 % 03/29/20 05:21 Nucleated RBC % Not Reportable 03/29/20 05:21 Seg Neutrophils # Man 3.7 K/mm3 (1.8-7.7) 03/29/20 05:21 Band Neutrophils # 0.0 K/mm3 03/29/20 05:21 Lymphocytes # (Manual) 0.4 K/mm3 (1.2-5.4) L 03/29/20 05:21 Abs React Lymphs (Man) 0.0 K/mm3 03/29/20 05:21 Monocytes # (Manual) 0.3 K/mm3 (0.0-0.8) 03/29/20 05:21 Eosinophils # (Manual) 0.1 K/mm3 (0.0-0.4) 03/29/20 05:21 Basophils # (Manual) 0.0 K/mm3 (0.0-0.1) 03/29/20 05:21 Metamyelocytes # 0.0 K/mm3 03/29/20 05:21 Myelocytes # 0.0 K/mm3 03/29/20 05:21 Promyelocytes # 0.0 K/mm3 03/29/20 05:21 Blast Cells # 0.0 K/mm3 03/29/20 05:21 WBC Morphology Not Reportable 03/29/20 05:21 Hypersegmented Neuts Not Reportable 03/29/20 05:21 Hyposegmented Neuts Not Reportable 03/29/20 05:21 Hypogranular Neuts Not Reportable 03/29/20 05:21 Smudge Cells Not Reportable 03/29/20 05:21 Toxic Granulation Not Reportable 03/29/20 05:21 Toxic Vacuolation Not Reportable 03/29/20 05:21 Dohle Bodies Not Reportable 03/29/20 05:21 Pelger-Huet Anomaly Not Reportable 03/29/20 05:21 Rashawn Rods Not Reportable 03/29/20 05:21 Platelet Estimate Consistent w auto 03/29/20 05:21 Clumped Platelets Not Reportable 03/29/20 05:21 Plt Clumps, EDTA Not Reportable 03/29/20 05:21 Large Platelets Not Reportable 03/29/20 05:21 Giant Platelets Not Reportable 03/29/20 05:21 Platelet Satelliting Not Reportable 03/29/20 05:21 Plt Morphology Comment Not Reportable 03/29/20 05:21 RBC Morphology Not Reportable 03/29/20 05:21 Dimorphic RBCs Not Reportable 03/29/20 05:21 Polychromasia Not Reportable 03/29/20 05:21 Hypochromasia 2+ 03/29/20 05:21 Poikilocytosis Not Reportable 03/29/20 05:21 Anisocytosis 1+ 03/29/20 05:21 Microcytosis 1+ 03/29/20 05:21 Macrocytosis Not Reportable 03/29/20 05:21 Spherocytes Not Reportable 03/29/20 05:21 Pappenheimer Bodies Not Reportable 03/29/20 05:21 Sickle Cells Not Reportable 03/29/20 05:21 Target Cells Not Reportable 03/29/20 05:21 Tear Drop Cells Not Reportable 03/29/20 05:21 Ovalocytes Not Reportable 03/29/20 05:21 Helmet Cells Not Reportable 03/29/20 05:21 [place] Bodies Not Reportable 03/29/20 05:21 Kathleen Rings Not Reportable 03/29/20 05:21 Kimmell Cells Not Reportable 03/29/20 05:21 Bite Cells Not Reportable 03/29/20 05:21 Crenated Cell Not Reportable 03/29/20 05:21 Elliptocytes Not Reportable 03/29/20 05:21 Acanthocytes (Spur) Not Reportable 03/29/20 05:21 Rouleaux Not Reportable 03/29/20 05:21 Hemoglobin C Crystals Not Reportable 03/29/20 05:21 Schistocytes Not Reportable 03/29/20 05:21 Malaria parasites Not Reportable 03/29/20 05:21 Edgard Bodies Not Reportable 03/29/20 05:21 Hem Pathologist Commnt No 03/29/20 05:21 PT 16.2 Sec. (12.2-14.9) H 03/29/20 07:59 INR 1.27 (0.87-1.13) H 03/29/20 07:59 APTT 29.8 Sec. (24.2-36.6) 03/29/20 07:59 FiO2 21 % 04/01/20 11:08 Sodium 139 mmol/L (137-145) 03/29/20 05:21 Potassium 3.5 mmol/L (3.6-5.0) L 03/29/20 05:21 Chloride 98.8 mmol/L (98-107) 03/29/20 05:21 Carbon Dioxide 31 mmol/L (22-30) H 03/29/20 05:21 Anion Gap 13 mmol/L 03/29/20 05:21 BUN 11 mg/dL (7-17) 03/29/20 05:21 Creatinine 0.6 mg/dL (0.6-1.2) 03/29/20 05:21 Estimated GFR > 60 ml/min 03/29/20 05:21 BUN/Creatinine Ratio 18 % 03/29/20 05:21 Glucose 92 mg/dL (65-100) 03/29/20 05:21 Calcium 8.9 mg/dL (8.4-10.2) 03/29/20 05:21 Phosphorus 4.20 mg/dL (2.5-4.5) 03/30/20 04:42 Magnesium 1.90 mg/dL (1.7-2.3) 03/30/20 04:42 Total Bilirubin 0.70 mg/dL (0.1-1.2) 03/29/20 07:59 Direct Bilirubin 0.2 mg/dL (0-0.2) 03/29/20 07:59 Indirect Bilirubin 0.5 mg/dL 03/29/20 07:59 AST 26 units/L (5-40) 03/29/20 07:59 ALT 17 units/L (7-56) 03/29/20 07:59 Alkaline Phosphatase 134 units/L (35-129) H 03/29/20 07:59 Troponin T 0.021 ng/mL (0.00-0.029) 03/29/20 14:40 NT-Pro-B Natriuret Pep 4379 pg/mL (0-450) H 03/29/20 07:59 Total Protein 9.8 g/dL (6.3-8.2) H 03/29/20 07:59 Albumin 3.4 g/dL (3.9-5) L 03/29/20 07:59 Albumin/Globulin Ratio 0.5 % 03/29/20 07:59 Urine Color Basilia (Yellow) 03/29/20 09:37 Urine Turbidity Clear (Clear) 03/29/20 09:37 Urine pH 5.0 (5.0-7.0) 03/29/20 09:37 Ur Specific [place] 1.029 (1.003-1.030) 03/29/20 09:37 Urine Protein 100 mg/dl mg/dL (Negative) 03/29/20 09:37 Urine Glucose (UA) Neg mg/dL (Negative) 03/29/20 09:37 Urine Ketones Neg mg/dL (Negative) 03/29/20 09:37 Urine Blood Sm (Negative) 03/29/20 09:37 Urine Nitrite Neg (Negative) 03/29/20 09:37 Urine Bilirubin Neg (Negative) 03/29/20 09:37 Urine Urobilinogen 4.0 mg/dL (<2.0) 03/29/20 09:37 Ur Leukocyte Esterase Neg (Negative) 03/29/20 09:37 Urine WBC (Auto) 3.0 /HPF (0.0-6.0) 03/29/20 09:37 Urine RBC (Auto) 15.0 /HPF (0.0-6.0) 03/29/20 09:37 U Epithel Cells (Auto) 2.0 /HPF (0-13.0) 03/29/20 09:37 Urine Mucus 2+ /HPF 03/29/20 09:37 Urine Opiates Screen Negative 03/29/20 09:37 Urine Methadone Screen Negative 03/29/20 09:37 Ur Barbiturates Screen Negative 03/29/20 09:37 Ur Phencyclidine Scrn Negative 03/29/20 09:37 Ur Amphetamines Screen Negative 03/29/20 09:37 U Benzodiazepines Scrn Negative 03/29/20 09:37 Urine Cocaine Screen Negative 03/29/20 09:37 U Marijuana (THC) Screen Positive 03/29/20 09:37 Drugs of Abuse Note Disclamer 03/29/20 09:37 - Diagnostic Impressions Diagnostic Impressions: Echocardiogram 03/29/20 11:07 Transthoracic Echocardiogram Indication: Hypertension BP: 176/95 Conclusions *4-chamber cardiomyopathy. *Global left ventricular systolic function is severely decreased. *The estimated ejection fraction is 25-30%. *Mild to moderate concentric left ventricular hypertrophy is observed. *There is mild mitral regurgitation. *There is mild tricuspid regurgitation. *There is mild-moderate pulmonary hypertension. *The right ventricular systolic pressure is calculated at 42 mmHg. *A significant left pleural effusion is present. *Only a trivial pericardial effusion is visualized. Findings Procedure Info: The study quality is good. Left Ventricle: The left ventricular chamber size is mildly dilated. Mild to moderate concentric left ventricular hypertrophy is observed. Global left ventricular systolic function is severely decreased. The estimated ejection fraction is 25-30%. The left ventricular diastolic filling pattern is consistent with pseudonormalization. Left Atrium: The left atrium is moderately dilated. Right Ventricle: The right ventricle is mild to moderately dilated. The right ventricular global systolic function is moderately reduced. Right Atrium: The right atrium is moderately dilated. Aortic Valve: The aortic valve is trileaflet. The aortic valve leaflets are mildly thickened. There is trace of aortic regurgitation. There is no evidence of aortic stenosis. Mitral Valve: The mitral valve leaflets are mildly thickened. There is mild mitral regurgitation. There is no evidence of mitral stenosis. Tricuspid Valve: The tricuspid valve leaflets are normal. There is mild tricuspid regurgitation. The right ventricular systolic pressure is calculated at 42 mmHg. There is evidence of mild pulmonary hypertension. There is no tricuspid stenosis. Pulmonic Valve: The pulmonic valve appears normal. There is trace pulmonic regurgitation. There is no pulmonic stenosis. Pericardium: A trivial pericardial effusion is visualized. A left pleural effusion is present. Aorta: There is no dilatation of the ascending aorta. There is no dilatation of the aortic root. Venous: The inferior vena cava appears normal in size. Measurements Chambers 2D Name Value Normal Range IVSd (2D) 1.29 cm (0.6 - 1.1) LVPWd (2D) 1.24 cm (0.6 - 1.1) LVIDd (2D) 4.1 cm (3.7 - 5.6) LVIDs (2D) 2.98 cm (2 - 3.8) LV FS (2D) 27.17 % - EF Teichholz (2D) 53.38 % - Ao root diameter (2D) 2.08 cm (2 - 3.7) Volumes/Mass Name Value Normal Range LA ESV SP 4CH (A/L) 31.23 ml - LA ESV SP 2CH (A/L) 66.04 ml - LA ESV BP (A/L) 48.25 ml - LA ESV SP 4CH (MOD) 32.48 ml - LA ESV SP 2CH (MOD) 63.12 ml - LV EDV SP 4CH (MOD) 74.94 ml - LV ESV SP 4CH (MOD) 36.6 ml - EF SP 4CH (MOD) 51.16 % - LV EDV SP 2CH (MOD) 97.97 ml - LV ESV SP 2CH (MOD) 43.65 ml - EF SP 2CH (MOD) 55.45 % - LV EDV BP 92.11 ml - LV ESV BP 43.3 ml - BP EF (MOD) 52.99 % - Diastolic/Systolic Function Name Value Normal Range MV E-wave Vmax 1.02 m/sec - MV deceleration time 101.98 msec - MV A-wave Vmax 0.51 m/sec - MV E:A ratio 2.01 ratio - Aortic Valve Name Value Normal Range AV Vmax 1.23 m/sec - AV VTI 21.91 cm - AV peak gradient 6.04 mmHg - AV mean gradient 2.91 mmHg - LVOT diameter 1.72 cm - LVOT Vmax 0.95 m/sec - LVOT VTI 16.52 cm - LVOT peak gradient 3.61 mmHg - LVOT mean gradient 1.48 mmHg - SV LVOT 38.37 ml - RADHA (continuity Vmax) 1.8 cm2 - RADHA (continuity VTI) 1.75 cm2 - Ascending Ao 1.99 cm - Tricuspid Valve Name Value Normal Range TV E-wave Vmax 0.61 m/sec - TR Vmax 3 m/sec - TR peak gradient 36.05 mmHg - RVSP 42 mmHg - Pulmonic Valve/Qp:Qs Name Value Normal Range PV Vmax 0.9 m/sec - PV peak gradient 3.23 mmHg - RVOT Vmax 0.55 m/sec - RVOT VTI 10.36 cm - RVOT peak gradient 1.2 mmHg - PV acceleration time 110.37 msec - Kemp/IV: Voiding Method Indwelling Catheter IV Catheter Type [Left INT / Saline Lock Antecubital] Active Medications - Current Medications Current Medications: Generic Name Dose Route Start Last Admin Trade Name Freq PRN Reason Stop Dose Admin Albuterol 2.5 mg 03/29/20 11:38 Proventil IH Q4H PRN Shortness Of Breath Aspirin 81 mg 03/29/20 12:00 04/01/20 09:39 Halfprin Ec PO 81 mg QDAY LARA Administration Atorvastatin Calcium 40 mg 03/29/20 22:00 03/31/20 21:05 Lipitor PO 40 mg QHS LARA Administration Carvedilol 6.25 mg 03/29/20 12:00 04/01/20 09:39 Coreg PO 6.25 mg BID LARA Administration Ferrous Sulfate 325 mg 03/29/20 12:00 04/01/20 09:39 Feosol PO 325 mg QDAY LARA Administration Furosemide 40 mg 03/29/20 11:21 04/01/20 10:26 Lasix IV 40 mg 0600,1800 LARA Administration Hydralazine HCl 5 mg 03/29/20 11:30 Apresoline IV Q4HR PRN Hypertension Milrinone Lactate/Dextrose 20 mg in 100 mls @ 5.767 mls/hr 03/30/20 19:00 04/01/20 02:12 Milrinone-D5w 20 Mg/100 Ml IV 04/02/20 18:59 0.375 mcg/kg/min TITR LARA 5.767 mls/hr Administration 0.375 MCG/KG/MIN Lisinopril 5 mg 03/31/20 10:00 04/01/20 10:22 Zestril PO Not Given QDAY [facility] Multivitamins 1 each 03/29/20 12:00 04/01/20 09:39 Theragran Tab PO 1 each QDAY [facility] Administration Spironolactone 25 mg 03/31/20 10:00 04/01/20 09:39 Aldactone PO 25 mg QDAY LARA Administration
[2020-04-01 12:41] LABS: ABG Base Excess 6.6 mmol/L (-2.0-3.0); ABG HCO3 32.1 mmol/L (20.0-26.0); ABG Methemoglobin 0.5 % (0.0-1.5); ABG Oxygen Saturation 96.9 % (95.0-99.0); ABG PCO2 51.9 mm Hg; ABG PH 7.409 pH Units (7.350-7.450); ABG PO2 69.5 mm Hg (80.0-90.0)
--- NOTE | 2020-04-01 14:28 | Progress Note ---
Assessment and Plan Patient alert, awake and resting on 3 litres O2. O2 saturation 99%. No acute respiratory distress at rest. Patient afebrile, No leukocytosis. Complaining about stomach distended. Ultrasound of chest reported Moderately large right pleural effusion with an estimated volume of 1903 mL. Right pleural effusion likely from ascitis. Recommend paracentesis first. ABG ABG pH 7.409 pH Units (7.350-7.450) 04/01/20 11:08 ABG pCO2 51.9 mm Hg 04/01/20 11:08 ABG pO2 69.5 mm Hg (80.0-90.0) L 04/01/20 11:08 ABG O2 Saturation 96.9 % (95.0-99.0) 04/01/20 11:08 On room air. - Patient Problems (1) Acute respiratory distress Current Visit: Yes Status: Acute Plan to address problem: O2 2 litres via nasal canula Albuterol/atrovent aerosol treatments (2) Alcohol abuse Current Visit: Yes Status: Acute Plan to address problem: Management as per primary care. (3) CHF exacerbation Current Visit: Yes Status: Acute Plan to address problem: Management as per cardiology. (4) Hypertension Current Visit: Yes Status: Acute Plan to address problem: Management as per primary care. (5) Pleural effusion, right Current Visit: Yes Status: Acute Plan to address problem: Pleural effusion likely secondary to ascitis. Recommend Paracentesis first. Subjective Date of service: 04/01/20 Principal diagnosis: CHF Exacerbation Interval history: Patient alert, awake and resting on 3 litres O2. O2 saturation 99%. No acute respiratory distress at rest. Patient afebrile, No leukocytosis. Complaining about stomach distended. Ultrasound of chest reported Moderately large right pleural effusion with an estimated volume of 1903 mL. Right pleural effusion likely from ascitis. Recommend paracentesis first. ABG ABG pH 7.409 pH Units (7.350-7.450) 04/01/20 11:08 ABG pCO2 51.9 mm Hg 04/01/20 11:08 ABG pO2 69.5 mm Hg (80.0-90.0) L 04/01/20 11:08 ABG O2 Saturation 96.9 % (95.0-99.0) 04/01/20 11:08 On room air. Objective Vital Signs - 12hr 04/01/20 04/01/20 04/01/20 03:50 08:46 08:54 Temperature 99.0 F 98.8 F Pulse Rate 83 90 Respiratory 18 16 20 Rate Blood Pressure 116/58 120/65 O2 Sat by Pulse 99 100 Oximetry Constitutional: no acute distress, alert Eyes: non-icteric ENT: oropharynx moist Neck: supple Effort: normal Ascultation: Bilateral: diminished breath sounds (at the bases.) Cardiovascular: regular rate and rhythm Gastrointestinal: hypoactive bowel sounds, tender, other (Distended.) Integumentary: normal, decubitus ulcer, other (Bullous lesins at the ankles.) Extremities: no cyanosis, edema Neurologic: normal mental status, non-focal exam, pupils equal and round Psychiatric: anxious CBC and BMP: 04/02/20 05:57 04/02/20 05:57 ABG, PT/INR, D-dimer: ABG ABG pH 7.409 pH Units (7.350-7.450) 04/01/20 11:08 ABG pCO2 51.9 mm Hg 04/01/20 11:08 ABG pO2 69.5 mm Hg (80.0-90.0) L 04/01/20 11:08 ABG O2 Saturation 96.9 % (95.0-99.0) 04/01/20 11:08 PT/INR, D-dimer PT 16.2 Sec. (12.2-14.9) H 03/29/20 07:59 INR 1.27 (0.87-1.13) H 03/29/20 07:59 Abnormal lab findings: Abnormal Labs 03/29/20 03/29/20 03/29/20 05:21 05:21 07:59 RBC 5.12 H Hgb 9.1 L Hct 30.1 L MCV 59 L MCH 18 L RDW 26.3 H Seg Neuts % (Manual) 80.0 H Lymphocytes % (Manual) 9.0 L Lymphocytes # (Manual) 0.4 L PT 16.2 H INR 1.27 H ABG pO2 ABG HCO3 ABG Base Excess ABG Hemoglobin Oxyhemoglobin Potassium 3.5 L Carbon Dioxide 31 H Alkaline Phosphatase NT-Pro-B Natriuret Pep Total Protein Albumin 03/29/20 04/01/20 07:59 11:08 RBC Hgb Hct MCV MCH RDW Seg Neuts % (Manual) Lymphocytes % (Manual) Lymphocytes # (Manual) PT INR ABG pO2 69.5 L ABG HCO3 32.1 H ABG Base Excess 6.6 H ABG Hemoglobin 7.8 L Oxyhemoglobin 94.4 L Potassium Carbon Dioxide Alkaline Phosphatase 134 H NT-Pro-B Natriuret Pep 4379 H Total Protein 9.8 H Albumin 3.4 L Additional Studies: US CHEST 04/01/20 INDICATION / CLINICAL INFORMATION: Pleural effusion.. COMPARISON: None available. FINDINGS: Moderately large right pleural effusion with an estimated volume of 1903 mL. No left pleural effusion.
[2020-04-01] MEDS ORDERED: MORPHINE 2 MG/1 ML INJ IV ONE (18:23)
[2020-04-02] MEDS: FUROSEMIDE 40 MG/4 ML INJ IV SCH ×2 (05:50→17:41)
[2020-04-02 07:50] LABS: Mean Corpuscular HGB Conc 30 % (30-34); Red Blood Count 4.79 M/mm3 (3.65-5.03)
[2020-04-02 08:05] LABS: Hematocrit 29.3 % (30.3-42.9); Hemoglobin 8.7 gm/dl (10.1-14.3); Mean Corpuscular Volume 61 fl (79-97); Red Cell Distribution Width 25.1 % (13.2-15.2)
[2020-04-02 08:08] LABS: Alanine Aminotransferase 27 units/L (7-56); Albumin 3.1 g/dL (3.9-5); Blood Urea Nitrogen 13 mg/dL (7-17); Calcium 8.6 mg/dL (8.4-10.2); Hemolysis Index 17
[2020-04-02 08:31] LABS: BUN/Creatinine Ratio 19
--- NOTE | 2020-04-02 09:24 | Progress Note ---
Assessment and Plan Systolic heart failure, uncertain duration Dilated Cardiomyopathy Echo this admission shows 4 chamber dilated cardiomyopathy, ejection fraction 25-30% 2017 LHC at [facility] [place] reports normal coronaries 2017 Echo at [facility] [place] reports LVEF 50% Right Pleural effusion Hypertension Noncompliant with medications Recommendations: Advised fluid and sodium restriction. Daily weight. Continue aggressive medical therapy for systolic heart failure including a trial of IV milrinone therapy. Subjective Date of service: 04/02/20 Principal diagnosis: CHF Exacerbation Interval history: Patient is diuresing well. Objective Vital Signs Temp Pulse Resp BP Pulse Ox 04/02/20 08:34 98.6 F 87 18 148/54 98 04/02/20 04:11 84 20 124/64 93 04/02/20 00:00 84 04/01/20 22:44 103 H 136/70 04/01/20 20:00 20 04/01/20 19:38 98.0 F 103 H 18 136/70 98 04/01/20 16:39 97.9 F 91 H 18 138/68 99 04/01/20 16:34 84 - Physical Examination General: No Apparent Distress HEENT: Positive: PERRL Neck: Positive: trachea midline Cardiac: Positive: Reg Rate and Rhythm Lungs: Positive: Decreased Breath Sounds Neuro: Positive: Grossly Intact Extremities: Present: edema, Other (bilateral LE blisters and ulcers) - Labs and Meds Cardiac Enzymes 04/02/20 Range/Units 05:57 AST 54 H (5-40) units/L CBC 04/02/20 Range/Units 05:57 WBC 4.2 L (4.5-11.0) K/mm3 RBC 4.79 (3.65-5.03) M/mm3 Hgb 8.7 L (10.1-14.3) gm/dl Hct 29.3 L (30.3-42.9) % Comprehensive Metabolic Panel 04/02/20 Range/Units 05:57 Sodium 135 L (137-145) mmol/L Potassium 4.3 D (3.6-5.0) mmol/L Chloride 93.1 L (98-107) mmol/L Carbon Dioxide 34 H (22-30) mmol/L BUN 13 (7-17) mg/dL Creatinine 0.7 (0.6-1.2) mg/dL Glucose 99 (65-100) mg/dL Calcium 8.6 (8.4-10.2) mg/dL AST 54 H (5-40) units/L ALT 27 (7-56) units/L Alkaline Phosphatase 134 H (35-129) units/L Total Protein 8.9 H (6.3-8.2) g/dL Albumin 3.1 L (3.9-5) g/dL
[2020-04-02] MEDS: ASPIRIN EC 81 MG TAB PO SCH (09:26)
[2020-04-02] MEDS: carvediloL 6.25 MG TAB PO SCH ×2 (09:26→21:13)
[2020-04-02] MEDS: SPIRONOLACTONE 25 MG TAB PO SCH (09:27)
[2020-04-02] MEDS: MULTIVITAMINS ,THERAPEUTIC TAB PO SCH (09:27)
[2020-04-02] MEDS: LISINOPRIL 5 MG TAB PO SCH (09:27)
[2020-04-02] MEDS: FERROUS SULFATE 325 MG TAB PO SCH (09:29)
[2020-04-02 09:59] LABS: Platelet Count 133 K/mm3 (140-440)
[2020-04-02 10:04] LABS: Basophils % (Manual) 0 % (0.0-1.8); Monocytes % (Manual) 0 % (0.0-7.3); Total Cells Counted 100
[2020-04-02 10:05] LABS: Anisocytosis 2+; Hypochromasia 2+; Ovalocytes 1+; Platelet Estimate Consistent w Auto; Poikilocytosis 1+
--- NOTE | 2020-04-02 11:42 | Progress Note ---
Assessment and Plan Pleural effusion, right Acute hypoxemic Respiratory Failure Alcohol abuse CHF exacerbation Hypertension - paracentesis recommended; will also order US thoracentesis and send fluid for studies - continue supplemental oxygen as needed to keep O2 sat's > 90% - continue bronchodilators with pulmonary hygiene per RT - continue diuresis for HFrEF - optimize cardiac function per cardiology team - PT/OT as tolerated - mobility protocols for pressure ulcer prophylaxis - accuchecks with glycemic control per SSI for target BG < 180 mg/dl - GI & VTE prophylaxis - Flu & pneumovax addressed per protocol - continue other care per attending / other consultants ... re-evaluate in am & prn Subjective Date of service: 04/02/20 Principal diagnosis: CHF Exacerbation Interval history: Patient is seen today for: Seen and examined at bedside; 24hour events reviewed; nursing and respiratory care staff consulted; no adverse overnight events reported to me; resting peacefully in bed; US chest demonstrates significant fluid; no N/V/F/C Objective Vital Signs - 12hr 04/02/20 04/02/20 04/02/20 00:00 04:11 08:34 Temperature 98.6 F Pulse Rate 84 84 87 Respiratory 20 18 Rate Blood Pressure 124/64 148/54 O2 Sat by Pulse 93 98 Oximetry Constitutional: no acute distress, alert Eyes: non-icteric ENT: oropharynx moist Neck: supple Effort: normal Ascultation: Bilateral: diminished breath sounds (at the bases.) Cardiovascular: regular rate and rhythm Gastrointestinal: hypoactive bowel sounds, tender, other (Distended.) Integumentary: normal, decubitus ulcer, other (Bullous lesins at the ankles.) Extremities: no cyanosis, edema Neurologic: normal mental status, non-focal exam, pupils equal and round Psychiatric: anxious CBC and BMP: 04/02/20 05:57 04/02/20 05:57 ABG, PT/INR, D-dimer: ABG ABG pH 7.409 pH Units (7.350-7.450) 04/01/20 11:08 ABG pCO2 51.9 mm Hg 04/01/20 11:08 ABG pO2 69.5 mm Hg (80.0-90.0) L 04/01/20 11:08 ABG O2 Saturation 96.9 % (95.0-99.0) 04/01/20 11:08 PT/INR, D-dimer PT 16.2 Sec. (12.2-14.9) H 03/29/20 07:59 INR 1.27 (0.87-1.13) H 03/29/20 07:59 Abnormal lab findings: Abnormal Labs 03/29/20 03/29/20 03/29/20 05:21 05:21 07:59 WBC RBC 5.12 H Hgb 9.1 L Hct 30.1 L MCV 59 L MCH 18 L RDW 26.3 H Plt Count Seg Neuts % (Manual) 80.0 H Lymphocytes % (Manual) 9.0 L Lymphocytes # (Manual) 0.4 L PT 16.2 H INR 1.27 H ABG pO2 ABG HCO3 ABG Base Excess ABG Hemoglobin Oxyhemoglobin Sodium Potassium 3.5 L Chloride Carbon Dioxide 31 H AST Alkaline Phosphatase NT-Pro-B Natriuret Pep Total Protein Albumin 03/29/20 04/01/20 04/02/20 07:59 11:08 05:57 WBC 4.2 L RBC Hgb 8.7 L Hct 29.3 L MCV 61 L MCH 18 L RDW 25.1 H Plt Count 133 L Seg Neuts % (Manual) 74.0 H Lymphocytes % (Manual) Lymphocytes # (Manual) 1.0 L PT INR ABG pO2 69.5 L ABG HCO3 32.1 H ABG Base Excess 6.6 H ABG Hemoglobin 7.8 L Oxyhemoglobin 94.4 L Sodium Potassium Chloride Carbon Dioxide AST Alkaline Phosphatase 134 H NT-Pro-B Natriuret Pep 4379 H Total Protein 9.8 H Albumin 3.4 L 04/02/20 05:57 WBC RBC Hgb Hct MCV MCH RDW Plt Count Seg Neuts % (Manual) Lymphocytes % (Manual) Lymphocytes # (Manual) PT INR ABG pO2 ABG HCO3 ABG Base Excess ABG Hemoglobin Oxyhemoglobin Sodium 135 L Potassium Chloride 93.1 L Carbon Dioxide 34 H AST 54 H Alkaline Phosphatase 134 H NT-Pro-B Natriuret Pep Total Protein 8.9 H Albumin 3.1 L
[2020-04-02] MEDS: MILRINONE-D5W 20 MG/100 ML 20 MG/100 ML BAG IV SCH (17:42)
--- NOTE | 2020-04-02 18:40 | Progress Note ---
Assessment and Plan Assessment and plan: --CHF exacerbation EF 25 to 30%[ Current Visit: Yes Status: Acute Plan to address problem: Acute CHF likely 2/2 to noncompliance with medical regimen-diuretics Will start cardioprotectives ASA, BB, diuretics and statin Patient on milrinone drip day 3 --Acute respiratory failure with hypoxia Current Visit: Yes Status: Acute Plan to address problem: respiratory distress likely 2/2 acute CHF Continue diuretic, Nebulizers ECHO for LV function ejection fraction --Protein-calorie malnutrition, mild Current Visit: Yes Status: Acute Plan to address problem: Discussed healthy diet advised on Nutrition supplement Will Consult saw tailer --Anemia Current Visit: Yes Status: Acute Plan to address problem: ? cause malnutrition/iron defficiency/chronic illness Monitor H/H Will transfuse PRBCs if needed Start iron and MVI supplement --Alcohol abuse Current Visit: Yes Status: Acute Plan to address problem: Discussed alcohol use cessation discussed consequence of alcohol use including cirrhosis of the liver and ascitis --Hypertension Current Visit: Yes Status: Acute Plan to address problem: Monitor blood pressure resume home bp med ECHO -f/u with result EKG done-no st depression or elevation Chest x-ray showed bilateral pleural effusion and pulmonary edema. History Interval history: I have seen and examined the patient at the bedside Patient feels slightly better still has some shortness of breath Receiving milrinone drip per cardiology Vital signs noted Hospitalist Physical - Constitutional Vitals: Temp Pulse Resp BP Pulse Ox 98.2 F 80 18 129/69 96 04/02/20 16:40 04/02/20 16:40 04/02/20 16:40 04/02/20 16:40 04/02/20 16:40 General appearance: Present: mild distress, well-nourished - EENT Eyes: Present: PERRL, EOM intact - Neck Neck: Present: supple, normal ROM - Respiratory Respiratory effort: normal Respiratory: bilateral: diminished, rales, negative: rhonchi, wheezing - Cardiovascular Rhythm: regular Heart Sounds: Present: S1 & S2 - Extremities Extremities: no ischemia, No edema - Abdominal General gastrointestinal: soft, non-tender, non-distended, normal bowel sounds - Integumentary Integumentary: Present: clear, warm - Psychiatric Psychiatric: appropriate mood/affect, cooperative - Neurologic Neurologic: moves all extremities HEART Score - HEART Score Troponin: Troponin T 0.021 ng/mL (0.00-0.029) 03/29/20 14:40 Results - Labs CBC & Chem 7: 04/02/20 05:57 04/02/20 05:57 Labs: Laboratory Last Values WBC 4.2 K/mm3 (4.5-11.0) L 04/02/20 05:57 RBC 4.79 M/mm3 (3.65-5.03) 04/02/20 05:57 Hgb 8.7 gm/dl (10.1-14.3) L 04/02/20 05:57 Hct 29.3 % (30.3-42.9) L 04/02/20 05:57 MCV 61 fl (79-97) L 04/02/20 05:57 MCH 18 pg (28-32) L 04/02/20 05:57 MCHC 30 % (30-34) 04/02/20 05:57 RDW 25.1 % (13.2-15.2) H 04/02/20 05:57 Plt Count 133 K/mm3 (140-440) L 04/02/20 05:57 Add Manual Diff Complete 04/02/20 05:57 Total Counted 100 04/02/20 05:57 Seg Neuts % (Manual) 74.0 % (40.0-70.0) H 04/02/20 05:57 Band Neutrophils % 0 % 04/02/20 05:57 Lymphocytes % (Manual) 24.0 % (13.4-35.0) 04/02/20 05:57 Reactive Lymphs % (Man) 0 % 04/02/20 05:57 Monocytes % (Manual) 0 % (0.0-7.3) 04/02/20 05:57 Eosinophils % (Manual) 2.0 % (0.0-4.3) 04/02/20 05:57 Basophils % (Manual) 0 % (0.0-1.8) 04/02/20 05:57 Metamyelocytes % 0 % 04/02/20 05:57 Myelocytes % 0 % 04/02/20 05:57 Promyelocytes % 0 % 04/02/20 05:57 Blast Cells % 0 % 04/02/20 05:57 Nucleated RBC % Not Reportable 04/02/20 05:57 Seg Neutrophils # Man 3.1 K/mm3 (1.8-7.7) 04/02/20 05:57 Band Neutrophils # 0.0 K/mm3 04/02/20 05:57 Lymphocytes # (Manual) 1.0 K/mm3 (1.2-5.4) L 04/02/20 05:57 Abs React Lymphs (Man) 0.0 K/mm3 04/02/20 05:57 Monocytes # (Manual) 0.0 K/mm3 (0.0-0.8) 04/02/20 05:57 Eosinophils # (Manual) 0.1 K/mm3 (0.0-0.4) 04/02/20 05:57 Basophils # (Manual) 0.0 K/mm3 (0.0-0.1) 04/02/20 05:57 Metamyelocytes # 0.0 K/mm3 04/02/20 05:57 Myelocytes # 0.0 K/mm3 04/02/20 05:57 Promyelocytes # 0.0 K/mm3 04/02/20 05:57 Blast Cells # 0.0 K/mm3 04/02/20 05:57 WBC Morphology Not Reportable 04/02/20 05:57 Hypersegmented Neuts Not Reportable 04/02/20 05:57 Hyposegmented Neuts Not Reportable 04/02/20 05:57 Hypogranular Neuts Not Reportable 04/02/20 05:57 Smudge Cells Not Reportable 04/02/20 05:57 Toxic Granulation Not Reportable 04/02/20 05:57 Toxic Vacuolation Not Reportable 04/02/20 05:57 Dohle Bodies Not Reportable 04/02/20 05:57 Pelger-Huet Anomaly Not Reportable 04/02/20 05:57 Rashawn Rods Not Reportable 04/02/20 05:57 Platelet Estimate Consistent w auto 04/02/20 05:57 Clumped Platelets Not Reportable 04/02/20 05:57 Plt Clumps, EDTA Not Reportable 04/02/20 05:57 Large Platelets Not Reportable 04/02/20 05:57 Giant Platelets Not Reportable 04/02/20 05:57 Platelet Satelliting Not Reportable 04/02/20 05:57 Plt Morphology Comment Not Reportable 04/02/20 05:57 RBC Morphology Not Reportable 04/02/20 05:57 Dimorphic RBCs Not Reportable 04/02/20 05:57 Polychromasia Not Reportable 04/02/20 05:57 Hypochromasia 2+ 04/02/20 05:57 Poikilocytosis 1+ 04/02/20 05:57 Anisocytosis 2+ 04/02/20 05:57 Microcytosis 2+ 04/02/20 05:57 Macrocytosis Not Reportable 04/02/20 05:57 Spherocytes Not Reportable 04/02/20 05:57 Pappenheimer Bodies Not Reportable 04/02/20 05:57 Sickle Cells Not Reportable 04/02/20 05:57 Target Cells Not Reportable 04/02/20 05:57 Tear Drop Cells Not Reportable 04/02/20 05:57 Ovalocytes 1+ 04/02/20 05:57 Helmet Cells Not Reportable 04/02/20 05:57 Miller-[place] Bodies Not Reportable 04/02/20 05:57 [place] Rings Not Reportable 04/02/20 05:57 [place] Cells Not Reportable 04/02/20 05:57 Bite Cells Not Reportable 04/02/20 05:57 Crenated Cell Not Reportable 04/02/20 05:57 Elliptocytes Not Reportable 04/02/20 05:57 Acanthocytes (Spur) Not Reportable 04/02/20 05:57 Rouleaux Not Reportable 04/02/20 05:57 Hemoglobin C Crystals Not Reportable 04/02/20 05:57 Schistocytes Not Reportable 04/02/20 05:57 Malaria parasites Not Reportable 04/02/20 05:57 Edgard Bodies Not Reportable 04/02/20 05:57 Hem Pathologist Commnt No 04/02/20 05:57 PT 16.2 Sec. (12.2-14.9) H 03/29/20 07:59 INR 1.27 (0.87-1.13) H 03/29/20 07:59 APTT 29.8 Sec. (24.2-36.6) 03/29/20 07:59 ABG pH 7.409 pH Units (7.350-7.450) 04/01/20 11:08 ABG pCO2 51.9 mm Hg 04/01/20 11:08 ABG pO2 69.5 mm Hg (80.0-90.0) L 04/01/20 11:08 ABG HCO3 32.1 mmol/L (20.0-26.0) H 04/01/20 11:08 ABG O2 Saturation 96.9 % (95.0-99.0) 04/01/20 11:08 ABG O2 Content 10.4 (0.0-44) 04/01/20 11:08 ABG Base Excess 6.6 mmol/L (-2.0-3.0) H 04/01/20 11:08 ABG Hemoglobin 7.8 gm/dl (12.0-16.0) L 04/01/20 11:08 ABG Carboxyhemoglobin 2.2 % (0.0-5.0) 04/01/20 11:08 ABG Methemoglobin 0.5 % (0.0-1.5) 04/01/20 11:08 Oxyhemoglobin 94.4 % (95.0-99.0) L 04/01/20 11:08 FiO2 21 % 04/01/20 11:08 Sodium 135 mmol/L (137-145) L 04/02/20 05:57 Potassium 4.3 mmol/L (3.6-5.0) D 04/02/20 05:57 Chloride 93.1 mmol/L (98-107) L 04/02/20 05:57 Carbon Dioxide 34 mmol/L (22-30) H 04/02/20 05:57 Anion Gap 12 mmol/L 04/02/20 05:57 BUN 13 mg/dL (7-17) 04/02/20 05:57 Creatinine 0.7 mg/dL (0.6-1.2) 04/02/20 05:57 Estimated GFR > 60 ml/min 04/02/20 05:57 BUN/Creatinine Ratio 19 % 04/02/20 05:57 Glucose 99 mg/dL (65-100) 04/02/20 05:57 Calcium 8.6 mg/dL (8.4-10.2) 04/02/20 05:57 Phosphorus 4.20 mg/dL (2.5-4.5) 03/30/20 04:42 Magnesium 2.00 mg/dL (1.7-2.3) 04/02/20 05:57 Total Bilirubin 0.60 mg/dL (0.1-1.2) 04/02/20 05:57 Direct Bilirubin 0.2 mg/dL (0-0.2) 03/29/20 07:59 Indirect Bilirubin 0.5 mg/dL 03/29/20 07:59 AST 54 units/L (5-40) H 04/02/20 05:57 ALT 27 units/L (7-56) 04/02/20 05:57 Alkaline Phosphatase 134 units/L (35-129) H 04/02/20 05:57 Lactate Dehydrogenase 310 units/L (91-180) H 04/02/20 05:57 Troponin T 0.021 ng/mL (0.00-0.029) 03/29/20 14:40 NT-Pro-B Natriuret Pep 4379 pg/mL (0-450) H 03/29/20 07:59 Total Protein 8.9 g/dL (6.3-8.2) H 04/02/20 05:57 Albumin 3.1 g/dL (3.9-5) L 04/02/20 05:57 Albumin/Globulin Ratio 0.5 % 04/02/20 05:57 Urine Color Basilia (Yellow) 03/29/20 09:37 Urine Turbidity Clear (Clear) 03/29/20 09:37 Urine pH 5.0 (5.0-7.0) 03/29/20 09:37 Ur Specific [place] 1.029 (1.003-1.030) 03/29/20 09:37 Urine Protein 100 mg/dl mg/dL (Negative) 03/29/20 09:37 Urine Glucose (UA) Neg mg/dL (Negative) 03/29/20 09:37 Urine Ketones Neg mg/dL (Negative) 03/29/20 09:37 Urine Blood Sm (Negative) 03/29/20 09:37 Urine Nitrite Neg (Negative) 03/29/20 09:37 Urine Bilirubin Neg (Negative) 03/29/20 09:37 Urine Urobilinogen 4.0 mg/dL (<2.0) 03/29/20 09:37 Ur Leukocyte Esterase Neg (Negative) 03/29/20 09:37 Urine WBC (Auto) 3.0 /HPF (0.0-6.0) 03/29/20 09:37 Urine RBC (Auto) 15.0 /HPF (0.0-6.0) 03/29/20 09:37 U Epithel Cells (Auto) 2.0 /HPF (0-13.0) 03/29/20 09:37 Urine Mucus 2+ /HPF 03/29/20 09:37 Urine Opiates Screen Negative 03/29/20 09:37 Urine Methadone Screen Negative 03/29/20 09:37 Ur Barbiturates Screen Negative 03/29/20 09:37 Ur Phencyclidine Scrn Negative 03/29/20 09:37 Ur Amphetamines Screen Negative 03/29/20 09:37 U Benzodiazepines Scrn Negative 03/29/20 09:37 Urine Cocaine Screen Negative 03/29/20 09:37 U Marijuana (THC) Screen Positive 03/29/20 09:37 Drugs of Abuse Note Disclamer 03/29/20 09:37 Microbiology: Microbiology 04/02/20 16:00 Pleural Fluid - Pleura,Rt Lung Body Fluid Culture - Pr eliminary - Diagnostic Impressions Diagnostic Impressions: Echocardiogram 03/29/20 11:07 Transthoracic Echocardiogram Indication: Hypertension BP: 176/95 Conclusions *4-chamber cardiomyopathy. *Global left ventricular systolic function is severely decreased. *The estimated ejection fraction is 25-30%. *Mild to moderate concentric left ventricular hypertrophy is observed. *There is mild mitral regurgitation. *There is mild tricuspid regurgitation. *There is mild-moderate pulmonary hypertension. *The right ventricular systolic pressure is calculated at 42 mmHg. *A significant left pleural effusion is present. *Only a trivial pericardial effusion is visualized. Findings Procedure Info: The study quality is good. Left Ventricle: The left ventricular chamber size is mildly dilated. Mild to moderate concentric left ventricular hypertrophy is observed. Global left ventricular systolic function is severely decreased. The estimated ejection fraction is 25-30%. The left ventricular diastolic filling pattern is consistent with pseudonormalization. Left Atrium: The left atrium is moderately dilated. Right Ventricle: The right ventricle is mild to moderately dilated. The right ventricular global systolic function is moderately reduced. Right Atrium: The right atrium is moderately dilated. Aortic Valve: The aortic valve is trileaflet. The aortic valve leaflets are mildly thickened. There is trace of aortic regurgitation. There is no evidence of aortic stenosis. Mitral Valve: The mitral valve leaflets are mildly thickened. There is mild mitral regurgitation. There is no evidence of mitral stenosis. Tricuspid Valve: The tricuspid valve leaflets are normal. There is mild tricuspid regurgitation. The right ventricular systolic pressure is calculated at 42 mmHg. There is evidence of mild pulmonary hypertension. There is no tricuspid stenosis. Pulmonic Valve: The pulmonic valve appears normal. There is trace pulmonic regurgitation. There is no pulmonic stenosis. Pericardium: A trivial pericardial effusion is visualized. A left pleural effusion is present. Aorta: There is no dilatation of the ascending aorta. There is no dilatation of the aortic root. Venous: The inferior vena cava appears normal in size. Measurements Chambers 2D Name Value Normal Range IVSd (2D) 1.29 cm (0.6 - 1.1) LVPWd (2D) 1.24 cm (0.6 - 1.1) LVIDd (2D) 4.1 cm (3.7 - 5.6) LVIDs (2D) 2.98 cm (2 - 3.8) LV FS (2D) 27.17 % - EF Teichholz (2D) 53.38 % - Ao root diameter (2D) 2.08 cm (2 - 3.7) Volumes/Mass Name Value Normal Range LA ESV SP 4CH (A/L) 31.23 ml - LA ESV SP 2CH (A/L) 66.04 ml - LA ESV BP (A/L) 48.25 ml - LA ESV SP 4CH (MOD) 32.48 ml - LA ESV SP 2CH (MOD) 63.12 ml - LV EDV SP 4CH (MOD) 74.94 ml - LV ESV SP 4CH (MOD) 36.6 ml - EF SP 4CH (MOD) 51.16 % - LV EDV SP 2CH (MOD) 97.97 ml - LV ESV SP 2CH (MOD) 43.65 ml - EF SP 2CH (MOD) 55.45 % - LV EDV BP 92.11 ml - LV ESV BP 43.3 ml - BP EF (MOD) 52.99 % - Diastolic/Systolic Function Name Value Normal Range MV E-wave Vmax 1.02 m/sec - MV deceleration time 101.98 msec - MV A-wave Vmax 0.51 m/sec - MV E:A ratio 2.01 ratio - Aortic Valve Name Value Normal Range AV Vmax 1.23 m/sec - AV VTI 21.91 cm - AV peak gradient 6.04 mmHg - AV mean gradient 2.91 mmHg - LVOT diameter 1.72 cm - LVOT Vmax 0.95 m/sec - LVOT VTI 16.52 cm - LVOT peak gradient 3.61 mmHg - LVOT mean gradient 1.48 mmHg - SV LVOT 38.37 ml - RADHA (continuity Vmax) 1.8 cm2 - RADHA (continuity VTI) 1.75 cm2 - Ascending Ao 1.99 cm - Tricuspid Valve Name Value Normal Range TV E-wave Vmax 0.61 m/sec - TR Vmax 3 m/sec - TR peak gradient 36.05 mmHg - RVSP 42 mmHg - Pulmonic Valve/Qp:Qs Name Value Normal Range PV Vmax 0.9 m/sec - PV peak gradient 3.23 mmHg - RVOT Vmax 0.55 m/sec - RVOT VTI 10.36 cm - RVOT peak gradient 1.2 mmHg - PV acceleration time 110.37 msec - Kemp/IV: Voiding Method Indwelling Catheter IV Catheter Type [Left INT / Saline Lock Antecubital] Active Medications - Current Medications Current Medications: Generic Name Dose Route Start Last Admin Trade Name Freq PRN Reason Stop Dose Admin Albuterol 2.5 mg 03/29/20 11:38 Proventil IH Q4H PRN Shortness Of Breath Aspirin 81 mg 03/29/20 12:00 04/02/20 09:26 Halfprin Ec PO 81 mg QDAY LARA Administration Atorvastatin Calcium 40 mg 03/29/20 22:00 04/01/20 22:44 Lipitor PO 40 mg QHS LARA Administration Carvedilol 6.25 mg 03/29/20 12:00 04/02/20 09:26 Coreg PO 6.25 mg BID LARA Administration Ferrous Sulfate 325 mg 03/29/20 12:00 04/02/20 09:29 Feosol PO 325 mg QDAY LARA Administration Furosemide 40 mg 03/29/20 11:21 04/02/20 17:41 Lasix IV 40 mg 0600,1800 LARA Administration Hydralazine HCl 5 mg 03/29/20 11:30 Apresoline IV Q4HR PRN Hypertension Milrinone Lactate/Dextrose 20 mg in 100 mls @ 5.767 mls/hr 03/30/20 19:00 04/02/20 17:42 Milrinone-D5w 20 Mg/100 Ml IV 04/02/20 18:59 0.375 mcg/kg/min TITR LARA 5.767 mls/hr Administration 0.375 MCG/KG/MIN Milrinone Lactate/Dextrose 20 mg in 100 mls @ 5.767 mls/hr 04/02/20 19:00 Milrinone-D5w 20 Mg/100 Ml IV 04/04/20 18:59 TITR LARA 0.375 MCG/KG/MIN Lisinopril 5 mg 03/31/20 10:00 04/02/20 09:27 Zestril PO 5 mg QDAY LARA Administration Multivitamins 1 each 03/29/20 12:00 04/02/20 09:27 Theragran Tab PO 1 each QDAY LARA Administration Spironolactone 25 mg 03/31/20 10:00 04/02/20 09:27 Aldactone PO 25 mg QDAY LARA Administration
[2020-04-02 19:01] LABS: Total Cells Counted 100 /mm3
[2020-04-03] MEDS ORDERED: MORPHINE 2 MG/1 ML INJ IM ONE (02:58)
[2020-04-03] MEDS: FUROSEMIDE 40 MG/4 ML INJ IV SCH ×2 (06:25→17:39)
--- NOTE | 2020-04-03 07:25 | Procedure Note ---
Date of procedure: 04/03/20 Pre-op diagnosis: R pleural effusion, dyspnea Post-op diagnosis: same Procedure: US guided thoracentesis Findings: Please see report in PACS. Anesthesia: local Surgeon: DEMETRIO PAN Estimated blood loss: none Pathology: list Specimen disposition: to lab Condition: stable Disposition: floor
--- NOTE | 2020-04-03 07:30 | Ultrasound Report ---
Ultrasound-guided thoracentesis HISTORY: RIGHT PLEURAL EFFUSION. COMPARISON: None PROCEDURE: The risks (including but not limited to bleeding, infection, and pneumothorax) and benefi ts were explained to the patient and informed consent was obtained. A time out procedure was perform ed. Ultrasound was used to evaluate the right pleural effusion and locate the optimal site for needle ent ry. Once the skin was marked, the procedure site was prepped and draped in the usual sterile fashion and lidocaine was used for local anesthesia. A skin claude was made and a 6-Ukrainian thoracentesis cath eter was placed. The patient was monitored closely throughout the procedure, and a total of 1300 mL of straw-colored fluid was aspirated. Samples were sent to the lab for further evaluation per the pr imary clinicians orders. The patient tolerated the procedure well with no complications. A post-procedure chest x-ray was imm ediately ordered. IMPRESSION: Successful thoracentesis as above with a total of 1300 mL of straw-colored fluid aspirate d. Signer Name: Robson Carter MD Signed: 04/03/2020 7:26 AM Workstation Name: [id number]
--- NOTE | 2020-04-03 08:41 | XRay Report ---
CHEST 1 VIEW INDICATION: post thoracentesis. COMPARISON: 03/29/2020 FINDINGS: Support devices: None. Heart: Stable. Lungs/Pleura: Previously seen right pleural effusion has significantly decreased. There is no pneumot horax. There is mild atelectasis versus reexpansion pulmonary edema in the right lung base. IMPRESSION: 1. Satisfactory postthoracentesis appearance. No pneumothorax. Signer Name: John Paul Obando MD Signed: 04/03/2020 8:37 AM Workstation Name: [id number]
[2020-04-03] MEDS: FERROUS SULFATE 325 MG TAB PO SCH (09:29)
[2020-04-03] MEDS: MULTIVITAMINS ,THERAPEUTIC TAB PO SCH (09:29)
[2020-04-03] MEDS: ASPIRIN EC 81 MG TAB PO SCH (09:29)
[2020-04-03] MEDS: LISINOPRIL 5 MG TAB PO SCH (09:29)
[2020-04-03] MEDS: carvediloL 6.25 MG TAB PO SCH ×2 (09:29→21:31)
[2020-04-03] MEDS: SPIRONOLACTONE 25 MG TAB PO SCH (09:30)
--- NOTE | 2020-04-03 10:16 | Progress Note ---
Assessment and Plan - Patient Problems (1) Anasarca Current Visit: Yes Status: Acute Plan to address problem: Patient presented with fluid overload, anasarca and a dilated cardiomyopathy with left ventricular ejection fraction 25 to 30%. We will continue aggressive heart failure medical therapy including intravenous milrinone. Subjective Date of service: 04/03/20 Principal diagnosis: CHF Exacerbation Interval history: Patient is comfortable, no new cardiac complaints, she is status post thoracentesis. Abdominal distention has improved and lower extremity edema is improving. Intravenous milrinone is ongoing. Objective Vital Signs Temp Pulse Resp BP BP Pulse Ox 04/03/20 09:30 85 140/69 04/03/20 09:29 85 140/69 04/03/20 08:17 18 04/03/20 08:14 98.2 F 85 18 140/69 100 04/03/20 06:00 83 04/03/20 05:00 98.5 F 83 18 121/63 96 04/03/20 03:08 20 04/03/20 01:00 88 04/02/20 23:15 98.7 F 88 20 114/52 94 04/02/20 22:00 20 04/02/20 21:13 93 H 117/56 04/02/20 20:12 98.8 F 93 H 18 117/56 96 04/02/20 17:00 80 04/02/20 16:40 98.2 F 80 18 129/69 96 - Physical Examination General: No Apparent Distress HEENT: Positive: PERRL Neck: Positive: trachea midline Cardiac: Positive: Reg Rate and Rhythm Lungs: Positive: Decreased Breath Sounds Neuro: Positive: Grossly Intact Abdomen: Positive: Distended Skin: Positive: Clear Extremities: Present: +2 Edema, Other (bilateral LE blisters and ulcers) - Labs and Meds Cardiac Enzymes 04/02/20 Range/Units 05:57 Lactate Dehydrogenase 310 H (91-180) units/L
--- NOTE | 2020-04-03 10:55 | Progress Note ---
Assessment and Plan Assessment and plan: Cardiology recommend additional 3 days of milrinone from - --Acute on chronic systolic CHF EF 25 to 30%[ Current Visit: Yes Status: Acute Plan to address problem: Due to noncompliance with medical regimen-diuretics Will start cardioprotectives ASA, BB, diuretics and statin Patient received milrinone drip 3 days Cardiology recommend additional 3 days of milrinone --Acute respiratory failure with hypoxia Current Visit: Yes Status: Acute Plan to address problem: respiratory distress likely 2/2 acute CHF Continue diuretic, Nebulizers ECHO for LV function ejection fraction. --Pleural effusion: Thoracentesis s/p removal of 1.3 L of pleural fluid Fluid analysis Check abdominal ultrasound, to rule out ascites Possible abdominal paracentesis if needed --Protein-calorie malnutrition, mild Current Visit: Yes Status: Acute Plan to address problem: Discussed healthy diet advised on Nutrition supplement Will Consult jukebox routeman --Anemia Current Visit: Yes Status: Acute Plan to address problem: ? cause malnutrition/iron defficiency/chronic illness Monitor H/H Will transfuse PRBCs if needed Start iron and MVI supplement --Alcohol abuse Current Visit: Yes Status: Acute Plan to address problem: Discussed alcohol use cessation Advised strongly to quit alcohol intake Seek alcohol rehabilitation if needed --Hypertension Current Visit: Yes Status: Acute Plan to address problem: Monitor blood pressure resume home bp med ECHO -f/u with result EKG done-no st depression or elevation Chest x-ray bilateral pleural effusion and pulmonary edema. --DVT prophylaxis Current Visit: Yes Status: Acute Plan to address problem: Lovenox Monitor closely and adjust management as needed Plan of care reviewed with the patient and her nurse History Interval history: I have seen and examined the patient at the bedside Patient's chart medications reviewed, completed treatment of milrinone drip for 3 days Cardiology started additional 3 days of milrinone ending 04/04/2020 Patient complains of vague abdominal discomfort Had thoracentesis and removal of 1.3 L of pleural fluid Analysis pending Patient has no new complaints vital signs reviewed Hospitalist Physical - Constitutional Vitals: Temp Pulse Resp BP Pulse Ox 98.2 F 85 18 140/69 100 04/03/20 08:14 04/03/20 09:30 04/03/20 08:17 04/03/20 09:30 04/03/20 08:14 General appearance: Present: mild distress, well-nourished - EENT Eyes: Present: PERRL, EOM intact - Neck Neck: Present: supple, normal ROM - Respiratory Respiratory effort: normal Respiratory: bilateral: diminished, rales, negative: rhonchi, wheezing - Cardiovascular Rhythm: regular Heart Sounds: Present: S1 & S2 - Extremities Extremities: no ischemia, No edema - Abdominal General gastrointestinal: soft, non-tender, non-distended, normal bowel sounds - Integumentary Integumentary: Present: clear, warm - Psychiatric Psychiatric: appropriate mood/affect, cooperative - Neurologic Neurologic: CNII-XII intact, moves all extremities HEART Score - HEART Score Troponin: Troponin T 0.021 ng/mL (0.00-0.029) 03/29/20 14:40 Results - Labs CBC & Chem 7: 04/02/20 05:57 04/02/20 05:57 Labs: Laboratory Last Values WBC 4.2 K/mm3 (4.5-11.0) L 04/02/20 05:57 RBC 4.79 M/mm3 (3.65-5.03) 04/02/20 05:57 Hgb 8.7 gm/dl (10.1-14.3) L 04/02/20 05:57 Hct 29.3 % (30.3-42.9) L 04/02/20 05:57 MCV 61 fl (79-97) L 04/02/20 05:57 MCH 18 pg (28-32) L 04/02/20 05:57 MCHC 30 % (30-34) 04/02/20 05:57 RDW 25.1 % (13.2-15.2) H 04/02/20 05:57 Plt Count 133 K/mm3 (140-440) L 04/02/20 05:57 Add Manual Diff Complete 04/02/20 05:57 Total Counted 100 04/02/20 05:57 Seg Neuts % (Manual) 74.0 % (40.0-70.0) H 04/02/20 05:57 Band Neutrophils % 0 % 04/02/20 05:57 Lymphocytes % (Manual) 24.0 % (13.4-35.0) 04/02/20 05:57 Reactive Lymphs % (Man) 0 % 04/02/20 05:57 Monocytes % (Manual) 0 % (0.0-7.3) 04/02/20 05:57 Eosinophils % (Manual) 2.0 % (0.0-4.3) 04/02/20 05:57 Basophils % (Manual) 0 % (0.0-1.8) 04/02/20 05:57 Metamyelocytes % 0 % 04/02/20 05:57 Myelocytes % 0 % 04/02/20 05:57 Promyelocytes % 0 % 04/02/20 05:57 Blast Cells % 0 % 04/02/20 05:57 Nucleated RBC % Not Reportable 04/02/20 05:57 Seg Neutrophils # Man 3.1 K/mm3 (1.8-7.7) 04/02/20 05:57 Band Neutrophils # 0.0 K/mm3 04/02/20 05:57 Lymphocytes # (Manual) 1.0 K/mm3 (1.2-5.4) L 04/02/20 05:57 Abs React Lymphs (Man) 0.0 K/mm3 04/02/20 05:57 Monocytes # (Manual) 0.0 K/mm3 (0.0-0.8) 04/02/20 05:57 Eosinophils # (Manual) 0.1 K/mm3 (0.0-0.4) 04/02/20 05:57 Basophils # (Manual) 0.0 K/mm3 (0.0-0.1) 04/02/20 05:57 Metamyelocytes # 0.0 K/mm3 04/02/20 05:57 Myelocytes # 0.0 K/mm3 04/02/20 05:57 Promyelocytes # 0.0 K/mm3 04/02/20 05:57 Blast Cells # 0.0 K/mm3 04/02/20 05:57 WBC Morphology Not Reportable 04/02/20 05:57 Hypersegmented Neuts Not Reportable 04/02/20 05:57 Hyposegmented Neuts Not Reportable 04/02/20 05:57 Hypogranular Neuts Not Reportable 04/02/20 05:57 Smudge Cells Not Reportable 04/02/20 05:57 Toxic Granulation Not Reportable 04/02/20 05:57 Toxic Vacuolation Not Reportable 04/02/20 05:57 Dohle Bodies Not Reportable 04/02/20 05:57 Pelger-Huet Anomaly Not Reportable 04/02/20 05:57 Rashawn Rods Not Reportable 04/02/20 05:57 Platelet Estimate Consistent w auto 04/02/20 05:57 Clumped Platelets Not Reportable 04/02/20 05:57 Plt Clumps, EDTA Not Reportable 04/02/20 05:57 Large Platelets Not Reportable 04/02/20 05:57 Giant Platelets Not Reportable 04/02/20 05:57 Platelet Satelliting Not Reportable 04/02/20 05:57 Plt Morphology Comment Not Reportable 04/02/20 05:57 RBC Morphology Not Reportable 04/02/20 05:57 Dimorphic RBCs Not Reportable 04/02/20 05:57 Polychromasia Not Reportable 04/02/20 05:57 Hypochromasia 2+ 04/02/20 05:57 Poikilocytosis 1+ 04/02/20 05:57 Anisocytosis 2+ 04/02/20 05:57 Microcytosis 2+ 04/02/20 05:57 Macrocytosis Not Reportable 04/02/20 05:57 Spherocytes Not Reportable 04/02/20 05:57 Pappenheimer Bodies Not Reportable 04/02/20 05:57 Sickle Cells Not Reportable 04/02/20 05:57 Target Cells Not Reportable 04/02/20 05:57 Tear Drop Cells Not Reportable 04/02/20 05:57 Ovalocytes 1+ 04/02/20 05:57 Helmet Cells Not Reportable 04/02/20 05:57 [place] Bodies Not Reportable 04/02/20 05:57 [place] Rings Not Reportable 04/02/20 05:57 [place] Cells Not Reportable 04/02/20 05:57 Bite Cells Not Reportable 04/02/20 05:57 Crenated Cell Not Reportable 04/02/20 05:57 Elliptocytes Not Reportable 04/02/20 05:57 Acanthocytes (Spur) Not Reportable 04/02/20 05:57 Rouleaux Not Reportable 04/02/20 05:57 Hemoglobin C Crystals Not Reportable 04/02/20 05:57 Schistocytes Not Reportable 04/02/20 05:57 Malaria parasites Not Reportable 04/02/20 05:57 [place] Bodies Not Reportable 04/02/20 05:57 Hem Pathologist Commnt No 04/02/20 05:57 PT 16.2 Sec. (12.2-14.9) H 03/29/20 07:59 INR 1.27 (0.87-1.13) H 03/29/20 07:59 APTT 29.8 Sec. (24.2-36.6) 03/29/20 07:59 ABG pH 7.409 pH Units (7.350-7.450) 04/01/20 11:08 ABG pCO2 51.9 mm Hg 04/01/20 11:08 ABG pO2 69.5 mm Hg (80.0-90.0) L 04/01/20 11:08 ABG HCO3 32.1 mmol/L (20.0-26.0) H 04/01/20 11:08 ABG O2 Saturation 96.9 % (95.0-99.0) 04/01/20 11:08 ABG O2 Content 10.4 (0.0-44) 04/01/20 11:08 ABG Base Excess 6.6 mmol/L (-2.0-3.0) H 04/01/20 11:08 ABG Hemoglobin 7.8 gm/dl (12.0-16.0) L 04/01/20 11:08 ABG Carboxyhemoglobin 2.2 % (0.0-5.0) 04/01/20 11:08 ABG Methemoglobin 0.5 % (0.0-1.5) 04/01/20 11:08 Oxyhemoglobin 94.4 % (95.0-99.0) L 04/01/20 11:08 FiO2 21 % 04/01/20 11:08 Sodium 135 mmol/L (137-145) L 04/02/20 05:57 Potassium 4.3 mmol/L (3.6-5.0) D 04/02/20 05:57 Chloride 93.1 mmol/L (98-107) L 04/02/20 05:57 Carbon Dioxide 34 mmol/L (22-30) H 04/02/20 05:57 Anion Gap 12 mmol/L 04/02/20 05:57 BUN 13 mg/dL (7-17) 04/02/20 05:57 Creatinine 0.7 mg/dL (0.6-1.2) 04/02/20 05:57 Estimated GFR > 60 ml/min 04/02/20 05:57 BUN/Creatinine Ratio 19 % 04/02/20 05:57 Glucose 99 mg/dL (65-100) 04/02/20 05:57 Calcium 8.6 mg/dL (8.4-10.2) 04/02/20 05:57 Phosphorus 4.20 mg/dL (2.5-4.5) 03/30/20 04:42 Magnesium 2.00 mg/dL (1.7-2.3) 04/02/20 05:57 Total Bilirubin 0.60 mg/dL (0.1-1.2) 04/02/20 05:57 Direct Bilirubin 0.2 mg/dL (0-0.2) 03/29/20 07:59 Indirect Bilirubin 0.5 mg/dL 03/29/20 07:59 AST 54 units/L (5-40) H 04/02/20 05:57 ALT 27 units/L (7-56) 04/02/20 05:57 Alkaline Phosphatase 134 units/L (35-129) H 04/02/20 05:57 Lactate Dehydrogenase 310 units/L (91-180) H 04/02/20 05:57 Troponin T 0.021 ng/mL (0.00-0.029) 03/29/20 14:40 NT-Pro-B Natriuret Pep 4379 pg/mL (0-450) H 03/29/20 07:59 Total Protein 8.9 g/dL (6.3-8.2) H 04/02/20 05:57 Albumin 3.1 g/dL (3.9-5) L 04/02/20 05:57 Albumin/Globulin Ratio 0.5 % 04/02/20 05:57 Urine Color Basilia (Yellow) 03/29/20 09:37 Urine Turbidity Clear (Clear) 03/29/20 09:37 Urine pH 5.0 (5.0-7.0) 03/29/20 09:37 Ur Specific [place] 1.029 (1.003-1.030) 03/29/20 09:37 Urine Protein 100 mg/dl mg/dL (Negative) 03/29/20 09:37 Urine Glucose (UA) Neg mg/dL (Negative) 03/29/20 09:37 Urine Ketones Neg mg/dL (Negative) 03/29/20 09:37 Urine Blood Sm (Negative) 03/29/20 09:37 Urine Nitrite Neg (Negative) 03/29/20 09:37 Urine Bilirubin Neg (Negative) 03/29/20 09:37 Urine Urobilinogen 4.0 mg/dL (<2.0) 03/29/20 09:37 Ur Leukocyte Esterase Neg (Negative) 03/29/20 09:37 Urine WBC (Auto) 3.0 /HPF (0.0-6.0) 03/29/20 09:37 Urine RBC (Auto) 15.0 /HPF (0.0-6.0) 03/29/20 09:37 U Epithel Cells (Auto) 2.0 /HPF (0-13.0) 03/29/20 09:37 Urine Mucus 2+ /HPF 03/29/20 09:37 Fluid Type Pleural 04/02/20 16:00 Fluid Color Yellow 04/02/20 16:00 Fluid Appearance Hazy 04/02/20 16:00 Fluid WBC 54 /mm3 04/02/20 16:00 Fluid RBC 405 /mm3 04/02/20 16:00 Fluid Seg Neutrophils 11.0 % 04/02/20 16:00 Fluid Lymphocytes 55.0 % 04/02/20 16:00 Fluid Reactive Lymphs 0 % 04/02/20 16:00 Fluid Monocytes 34.0 % 04/02/20 16:00 Fluid Eosinophils 0 % 04/02/20 16:00 Fluid Basophils 0 % 04/02/20 16:00 Urine Opiates Screen Negative 03/29/20 09:37 Urine Methadone Screen Negative 03/29/20 09:37 Ur Barbiturates Screen Negative 03/29/20 09:37 Ur Phencyclidine Scrn Negative 03/29/20 09:37 Ur Amphetamines Screen Negative 03/29/20 09:37 U Benzodiazepines Scrn Negative 03/29/20 09:37 Urine Cocaine Screen Negative 03/29/20 09:37 U Marijuana (THC) Screen Positive 03/29/20 09:37 Drugs of Abuse Note Disclamer 03/29/20 09:37 Microbiology: Microbiology 04/02/20 16:00 Pleural Fluid - Pleura,Rt Lung Body Fluid Culture - Preliminary - Diagnostic Impressions Diagnostic Impressions: Echocardiogram 03/29/20 11:07 Transthoracic Echocardiogram Indication: Hypertension BP: 176/95 Conclusions *4-chamber cardiomyopathy. *Global left ventricular systolic function is severely decreased. *The estimated ejection fraction is 25-30%. *Mild to moderate concentric left ventricular hypertrophy is observed. *There is mild mitral regurgitation. *There is mild tricuspid regurgitation. *There is mild-moderate pulmonary hypertension. *The right ventricular systolic pressure is calculated at 42 mmHg. *A significant left pleural effusion is present. *Only a trivial pericardial effusion is visualized. Findings Procedure Info: The study quality is good. Left Ventricle: The left ventricular chamber size is mildly dilated. Mild to moderate concentric left ventricular hypertrophy is observed. Global left ventricular systolic function is severely decreased. The estimated ejection fraction is 25-30%. The left ventricular diastolic filling pattern is consistent with pseudonormalization. Left Atrium: The left atrium is moderately dilated. Right Ventricle: The right ventricle is mild to moderately dilated. The right ventricular global systolic function is moderately reduced. Right Atrium: The right atrium is moderately dilated. Aortic Valve: The aortic valve is trileaflet. The aortic valve leaflets are mildly thickened. There is trace of aortic regurgitation. There is no evidence of aortic stenosis. Mitral Valve: The mitral valve leaflets are mildly thickened. There is mild mitral regurgitation. There is no evidence of mitral stenosis. Tricuspid Valve: The tricuspid valve leaflets are normal. There is mild tricuspid regurgitation. The right ventricular systolic pressure is calculated at 42 mmHg. There is evidence of mild pulmonary hypertension. There is no tricuspid stenosis. Pulmonic Valve: The pulmonic valve appears normal. There is trace pulmonic regurgitation. There is no pulmonic stenosis. Pericardium: A trivial pericardial effusion is visualized. A left pleural effusion is present. Aorta: There is no dilatation of the ascending aorta. There is no dilatation of the aortic root. Venous: The inferior vena cava appears normal in size. Measurements Chambers 2D Name Value Normal Range IVSd (2D) 1.29 cm (0.6 - 1.1) LVPWd (2D) 1.24 cm (0.6 - 1.1) LVIDd (2D) 4.1 cm (3.7 - 5.6) LVIDs (2D) 2.98 cm (2 - 3.8) LV FS (2D) 27.17 % - EF Teichholz (2D) 53.38 % - Ao root diameter (2D) 2.08 cm (2 - 3.7) Volumes/Mass Name Value Normal Range LA ESV SP 4CH (A/L) 31.23 ml - LA ESV SP 2CH (A/L) 66.04 ml - LA ESV BP (A/L) 48.25 ml - LA ESV SP 4CH (MOD) 32.48 ml - LA ESV SP 2CH (MOD) 63.12 ml - LV EDV SP 4CH (MOD) 74.94 ml - LV ESV SP 4CH (MOD) 36.6 ml - EF SP 4CH (MOD) 51.16 % - LV EDV SP 2CH (MOD) 97.97 ml - LV ESV SP 2CH (MOD) 43.65 ml - EF SP 2CH (MOD) 55.45 % - LV EDV BP 92.11 ml - LV ESV BP 43.3 ml - BP EF (MOD) 52.99 % - Diastolic/Systolic Function Name Value Normal Range MV E-wave Vmax 1.02 m/sec - MV deceleration time 101.98 msec - MV A-wave Vmax 0.51 m/sec - MV E:A ratio 2.01 ratio - Aortic Valve Name Value Normal Range AV Vmax 1.23 m/sec - AV VTI 21.91 cm - AV peak gradient 6.04 mmHg - AV mean gradient 2.91 mmHg - LVOT diameter 1.72 cm - LVOT Vmax 0.95 m/sec - LVOT VTI 16.52 cm - LVOT peak gradient 3.61 mmHg - LVOT mean gradient 1.48 mmHg - SV LVOT 38.37 ml - RADHA (continuity Vmax) 1.8 cm2 - RADHA (continuity VTI) 1.75 cm2 - Ascending Ao 1.99 cm - Tricuspid Valve Name Value Normal Range TV E-wave Vmax 0.61 m/sec - TR Vmax 3 m/sec - TR peak gradient 36.05 mmHg - RVSP 42 mmHg - Pulmonic Valve/Qp:Qs Name Value Normal Range PV Vmax 0.9 m/sec - PV peak gradient 3.23 mmHg - RVOT Vmax 0.55 m/sec - RVOT VTI 10.36 cm - RVOT peak gradient 1.2 mmHg - PV acceleration time 110.37 msec - Kemp/IV: Voiding Method Indwelling Catheter IV Catheter Type [Left INT / Saline Lock Antecubital] Active Medications - Current Medications Current Medications: Generic Name Dose Route Start Last Admin Trade Name Freq PRN Reason Stop Dose Admin Albuterol 2.5 mg 03/29/20 11:38 Proventil IH Q4H PRN Shortness Of Breath Aspirin 81 mg 03/29/20 12:00 04/03/20 09:29 Halfprin Ec PO 81 mg QDAY LARA Administration Atorvastatin Calcium 40 mg 03/29/20 22:00 04/02/20 21:13 Lipitor PO 40 mg QHS LARA Administration Carvedilol 6.25 mg 03/29/20 12:00 04/03/20 09:29 Coreg PO 6.25 mg BID LARA Administration Ferrous Sulfate 325 mg 03/29/20 12:00 04/03/20 09:29 Feosol PO 325 mg QDAY LARA Administration Furosemide 40 mg 03/29/20 11:21 04/03/20 06:25 Lasix IV 40 mg 0600,1800 LARA Administration Hydralazine HCl 5 mg 03/29/20 11:30 Apresoline IV Q4HR PRN Hypertension Milrinone Lactate/Dextrose 20 mg in 100 mls @ 5.767 mls/hr 04/02/20 19:00 Milrinone-D5w 20 Mg/100 Ml IV 04/04/20 18:59 TITR LARA 0.375 MCG/KG/MIN Lisinopril 5 mg 03/31/20 10:00 04/03/20 09:29 Zestril PO 5 mg QDAY LARA Administration Multivitamins 1 each 03/29/20 12:00 04/03/20 09:29 Theragran Tab PO 1 each QDAY LARA Administration Spironolactone 25 mg 03/31/20 10:00 04/03/20 09:30 Aldactone PO 25 mg QDAY LARA Administration
[2020-04-03] MEDS: MILRINONE-D5W 20 MG/100 ML 20 MG/100 ML BAG IV SCH (11:12)
--- NOTE | 2020-04-03 13:37 | Progress Note ---
Assessment and Plan Pleural effusion, right Acute hypoxemic Respiratory Failure Alcohol abuse CHF exacerbation Hypertension - paracentesis recommended; will also order US thoracentesis and send fluid for studies - continue supplemental oxygen as needed to keep O2 sat's > 90% - continue bronchodilators with pulmonary hygiene per RT - continue diuresis for HFrEF - optimize cardiac function per cardiology team - PT/OT as tolerated - mobility protocols for pressure ulcer prophylaxis - accuchecks with glycemic control per SSI for target BG < 180 mg/dl - GI & VTE prophylaxis - Flu & pneumovax addressed per protocol - continue other care per attending / other consultants ... re-evaluate in am & prn Subjective Date of service: 04/03/20 Principal diagnosis: R. Pleural effusion; Ac. hypoxemic Resp Failure; Alcohol abuse Interval history: Patient is seen today for: Pleural effusion, right; Acute hypoxemic Respiratory Failure; Alcohol abuse; CHF exacerbation; Hypertension Seen and examined at bedside; 24hour events reviewed; nursing and respiratory care staff consulted; no adverse overnight events reported to me; resting peacefully in bed; Objective Vital Signs - 12hr 04/03/20 04/03/20 04/03/20 03:08 05:00 06:00 Temperature 98.5 F Pulse Rate 83 83 Respiratory 20 18 Rate Blood Pressure Blood Pressure 121/63 [Right] O2 Sat by Pulse 96 Oximetry 04/03/20 04/03/20 04/03/20 07:20 08:14 08:17 Temperature 98.2 F Pulse Rate 90 85 Respiratory 18 18 Rate Blood Pressure 140/69 Blood Pressure [Right] O2 Sat by Pulse 100 Oximetry 04/03/20 04/03/20 09:29 09:30 Temperature Pulse Rate 85 85 Respiratory Rate Blood Pressure 140/69 140/69 Blood Pressure [Right] O2 Sat by Pulse Oximetry Constitutional: no acute distress, alert Eyes: non-icteric ENT: oropharynx moist Neck: supple Effort: normal Ascultation: Bilateral: diminished breath sounds (at the bases.) Cardiovascular: regular rate and rhythm Gastrointestinal: hypoactive bowel sounds, tender, other (Distended.) Integumentary: normal, decubitus ulcer, other (Bullous lesins at the ankles.) Extremities: no cyanosis, edema Neurologic: normal mental status, non-focal exam, pupils equal and round Psychiatric: anxious CBC and BMP: 04/02/20 05:57 04/02/20 05:57 ABG, PT/INR, D-dimer: ABG ABG pH 7.409 pH Units (7.350-7.450) 04/01/20 11:08 ABG pCO2 51.9 mm Hg 04/01/20 11:08 ABG pO2 69.5 mm Hg (80.0-90.0) L 04/01/20 11:08 ABG O2 Saturation 96.9 % (95.0-99.0) 04/01/20 11:08 PT/INR, D-dimer PT 16.2 Sec. (12.2-14.9) H 03/29/20 07:59 INR 1.27 (0.87-1.13) H 03/29/20 07:59 Abnormal lab findings: Abnormal Labs 03/29/20 03/29/20 03/29/20 05:21 05:21 07:59 WBC RBC 5.12 H Hgb 9.1 L Hct 30.1 L MCV 59 L MCH 18 L RDW 26.3 H Plt Count Seg Neuts % (Manual) 80.0 H Lymphocytes % (Manual) 9.0 L Lymphocytes # (Manual) 0.4 L PT 16.2 H INR 1.27 H ABG pO2 ABG HCO3 ABG Base Excess ABG Hemoglobin Oxyhemoglobin Sodium Potassium 3.5 L Chloride Carbon Dioxide 31 H AST Alkaline Phosphatase Lactate Dehydrogenase NT-Pro-B Natriuret Pep Total Protein Albumin 03/29/20 04/01/20 04/02/20 07:59 11:08 05:57 WBC 4.2 L RBC Hgb 8.7 L Hct 29.3 L MCV 61 L MCH 18 L RDW 25.1 H Plt Count 133 L Seg Neuts % (Manual) 74.0 H Lymphocytes % (Manual) Lymphocytes # (Manual) 1.0 L PT INR ABG pO2 69.5 L ABG HCO3 32.1 H ABG Base Excess 6.6 H ABG Hemoglobin 7.8 L Oxyhemoglobin 94.4 L Sodium Potassium Chloride Carbon Dioxide AST Alkaline Phosphatase 134 H Lactate Dehydrogenase NT-Pro-B Natriuret Pep 4379 H Total Protein 9.8 H Albumin 3.4 L 04/02/20 04/02/20 05:57 05:57 WBC RBC Hgb Hct MCV MCH RDW Plt Count Seg Neuts % (Manual) Lymphocytes % (Manual) Lymphocytes # (Manual) PT INR ABG pO2 ABG HCO3 ABG Base Excess ABG Hemoglobin Oxyhemoglobin Sodium 135 L Potassium Chloride 93.1 L Carbon Dioxide 34 H AST 54 H Alkaline Phosphatase 134 H Lactate Dehydrogenase 310 H NT-Pro-B Natriuret Pep Total Protein 8.9 H Albumin 3.1 L
--- NOTE | 2020-04-03 17:00 | Ultrasound Report ---
US abdomen limited INDICATION / CLINICAL INFORMATION: Ascites. COMPARISON: None available. FINDINGS: There is mild to moderate ascites within all four quadrants. IMPRESSION: 1. Mild to moderate ascites. Signer Name: John Paul Obando MD Signed: 04/03/2020 4:56 PM Workstation Name: [email or web address]
[2020-04-03] MEDS: ENOXAPARIN 40 MG/0.4 ML INJ SUB-Q SCH (21:38)
[2020-04-04] MEDS: MILRINONE-D5W 20 MG/100 ML 20 MG/100 ML BAG IV SCH (03:58)
[2020-04-04] MEDS: FUROSEMIDE 40 MG/4 ML INJ IV SCH ×2 (06:25→17:10)
--- NOTE | 2020-04-04 08:29 | Progress Note ---
Assessment and Plan Pleural effusion, right s/p thoracentesis Acute hypoxemic Respiratory Failure Alcohol abuse CHF -cardiomyopathy EF 25-30% Moderate pulmonary HTN- RVSP 42 Hypertension - Follow up pleural fluid studies -Heart failure measures, currently on ionotropic support - continue supplemental oxygen as needed to keep O2 sats > 90% - continue bronchodilators with pulmonary hygiene per RT - continue diuresis for HFrEF - optimize cardiac function per cardiology team - PT/OT as tolerated - mobility protocols for pressure ulcer prophylaxis - accuchecks with glycemic control per SSI for target BG < 180 mg/dl - VTE prophylaxis - Flu & pneumovax addressed per protocol - continue other care per attending / other consultants Subjective Date of service: 04/04/20 Principal diagnosis: R. Pleural effusion; Ac. hypoxemic Resp Failure; Alcohol abuse Interval history: Patient is seen today for: Pleural effusion, right; Acute hypoxemic Respiratory Failure; Alcohol abuse; CHF exacerbation; Hypertension Seen and examined at bedside; 24hour events reviewed; nursing and respiratory care staff consulted; no adverse overnight events reported to me; resting peacefully in bed;on supplemental oxygen . On going shortness of breath with abdominal distension. No fevers, no chills, no nausea or vomiting On Milrinone Objective Vital Signs - 12hr 04/03/20 04/04/20 04/04/20 23:42 04:25 07:49 Temperature 98.1 F 98.0 F 98.1 F Pulse Rate 89 88 83 Respiratory 18 18 20 Rate Blood Pressure 112/48 140/62 143/74 O2 Sat by Pulse 91 98 100 Oximetry Constitutional: no acute distress, alert, other (chronically ill looking) Eyes: non-icteric ENT: oropharynx moist Neck: supple Effort: mildly labored Ascultation: Bilateral: diminished breath sounds (at the bases.) Cardiovascular: regular rate and rhythm, other (S1,S2) Gastrointestinal: hypoactive bowel sounds, tender, other (Distended, Ascites.) Integumentary: normal, decubitus ulcer, other (Bullous lesins at the ankles.) Extremities: no cyanosis, edema Neurologic: normal mental status, non-focal exam, pupils equal and round Psychiatric: anxious CBC and BMP: 04/02/20 05:57 04/02/20 05:57 ABG, PT/INR, D-dimer: ABG ABG pH 7.409 pH Units (7.350-7.450) 04/01/20 11:08 ABG pCO2 51.9 mm Hg 04/01/20 11:08 ABG pO2 69.5 mm Hg (80.0-90.0) L 04/01/20 11:08 ABG O2 Saturation 96.9 % (95.0-99.0) 04/01/20 11:08 PT/INR, D-dimer PT 16.2 Sec. (12.2-14.9) H 03/29/20 07:59 INR 1.27 (0.87-1.13) H 03/29/20 07:59 Abnormal lab findings: Abnormal Labs 03/29/20 03/29/20 03/29/20 05:21 05:21 07:59 WBC RBC 5.12 H Hgb 9.1 L Hct 30.1 L MCV 59 L MCH 18 L RDW 26.3 H Plt Count Seg Neuts % (Manual) 80.0 H Lymphocytes % (Manual) 9.0 L Lymphocytes # (Manual) 0.4 L PT 16.2 H INR 1.27 H ABG pO2 ABG HCO3 ABG Base Excess ABG Hemoglobin Oxyhemoglobin Sodium Potassium 3.5 L Chloride Carbon Dioxide 31 H AST Alkaline Phosphatase Lactate Dehydrogenase NT-Pro-B Natriuret Pep Total Protein Albumin 03/29/20 04/01/20 04/02/20 07:59 11:08 05:57 WBC 4.2 L RBC Hgb 8.7 L Hct 29.3 L MCV 61 L MCH 18 L RDW 25.1 H Plt Count 133 L Seg Neuts % (Manual) 74.0 H Lymphocytes % (Manual) Lymphocytes # (Manual) 1.0 L PT INR ABG pO2 69.5 L ABG HCO3 32.1 H ABG Base Excess 6.6 H ABG Hemoglobin 7.8 L Oxyhemoglobin 94.4 L Sodium Potassium Chloride Carbon Dioxide AST Alkaline Phosphatase 134 H Lactate Dehydrogenase NT-Pro-B Natriuret Pep 4379 H Total Protein 9.8 H Albumin 3.4 L 04/02/20 04/02/20 05:57 05:57 WBC RBC Hgb Hct MCV MCH RDW Plt Count Seg Neuts % (Manual) Lymphocytes % (Manual) Lymphocytes # (Manual) PT INR ABG pO2 ABG HCO3 ABG Base Excess ABG Hemoglobin Oxyhemoglobin Sodium 135 L Potassium Chloride 93.1 L Carbon Dioxide 34 H AST 54 H Alkaline Phosphatase 134 H Lactate Dehydrogenase 310 H NT-Pro-B Natriuret Pep Total Protein 8.9 H Albumin 3.1 L Chest x-ray: image reviewed Additional Studies: Echocardiogram- 4 chamber cardiomyopathy, LVEF 25-30%, RVSP 42
[2020-04-04] MEDS: LISINOPRIL 5 MG TAB PO SCH (09:34)
[2020-04-04] MEDS: MULTIVITAMINS ,THERAPEUTIC TAB PO SCH (09:34)
[2020-04-04] MEDS: ASPIRIN EC 81 MG TAB PO SCH (09:34)
[2020-04-04] MEDS: FERROUS SULFATE 325 MG TAB PO SCH (09:34)
[2020-04-04] MEDS: carvediloL 6.25 MG TAB PO SCH ×2 (09:34→21:17)
[2020-04-04] MEDS: SPIRONOLACTONE 25 MG TAB PO SCH (09:34)
--- NOTE | 2020-04-04 09:59 | Progress Note ---
Subjective Date of service: 04/04/20 Principal diagnosis: R. Pleural effusion; Ac. hypoxemic Resp Failure; Alcohol abuse Interval history: Assessment and Plan - Patient Problems (1) Anasarca Current Visit: Yes Status: Acute Plan to address problem: Patient presented with fluid overload, anasarca and a dilated cardiomyopathy with left ventricular ejection fraction 25 to 30%. We will continue aggressive heart failure medical therapy including intravenous milrinone. Subjective Date of service: 04/03/20 Principal diagnosis: CHF Exacerbation Interval history: Patient is comfortable, no new cardiac complaints, Abdominal distention has improved and lower extremity edema is improving. Intravenous milrinone to continue over weekend. continue IV diuretics. Objective Vital Signs Temp Pulse Resp BP Pulse Ox 04/04/20 07:49 98.1 F 83 20 143/74 100 04/04/20 04:25 98.0 F 88 18 140/62 98 04/03/20 23:42 98.1 F 89 18 112/48 91 04/03/20 19:12 98.5 F 92 H 18 151/62 93 04/03/20 17:10 98.5 F 91 H 18 132/63 96 - Physical Examination General: No Apparent Distress HEENT: Positive: PERRL Neck: Positive: trachea midline Cardiac: Positive: Reg Rate and Rhythm, S1/S2 Lungs: Positive: Normal Exam Neuro: Positive: Grossly Intact Abdomen: Positive: Distended Skin: Positive: Clear Extremities: Present: +2 Edema, Other (bilateral LE blisters and ulcers)
--- NOTE | 2020-04-04 19:01 | Progress Note ---
Assessment and Plan Assessment and plan: Cardiology recommend additional 3 days of milrinone from - --Acute on chronic systolic CHF EF 25 to 30%[ Current Visit: Yes Status: Acute Plan to address problem: Due to noncompliance with medical regimen-diuretics -Will continue ASA, BB, diuretics and statin -Managed with milrinone drip 3 days -additional 3 days of milrinone - per cardiology --Acute respiratory failure with hypoxia Current Visit: Yes Status: Acute Plan to address problem: respiratory distress likely 2/2 acute CHF -Continue diuretic, -Nebulizers ECHO for LV function ejection fraction. --Pleural effusion: Thoracentesis s/p removal of 1.3 L of pleural fluid Fluid analysis -Mild to moderate ascites ; on abdominal ultrasound No indication for abdominal paracentesis I will continue diuretics --Protein-calorie malnutrition, mild Current Visit: Yes Status: Acute Plan to address problem: Discussed healthy diet advised on Nutrition supplement Will Consult testing analyst --Anemia Current Visit: Yes Status: Acute Plan to address problem: ? cause malnutrition/iron defficiency/chronic illness Monitor H/H Will transfuse PRBCs if needed Start iron and MVI supplement --Alcohol abuse Current Visit: Yes Status: Acute Plan to address problem: Discussed alcohol use cessation Advised strongly to quit alcohol intake Seek alcohol rehabilitation if needed --Hypertension Current Visit: Yes Status: Acute Plan to address problem: Monitor blood pressure resume home bp med ECHO -f/u with result EKG done-no st depression or elevation Chest x-ray bilateral pleural effusion and pulmonary edema. --DVT prophylaxis Current Visit: Yes Status: Acute Plan to address problem: Lovenox Monitor closely and adjust management as needed Plan of care reviewed with the patient and her nurse 04/02; patient completed 3 days of milrinone per cardiology, recommend additional 3 days Started second round of milrinone 04/03; patient complains of abdominal bloating, abdominal ultrasound to rule out ascites 04/04; abdominal ultrasound mild to moderate ascites, no indication for abdominal paracentesis History Interval history: Patient seen and examined patient's medical records reviewed Slightly better, completing second round of milrinone today night Vital signs reviewed No new complaints Hospitalist Physical - Constitutional Vitals: Temp Pulse Resp BP Pulse Ox 98.3 F 85 20 128/72 98 04/04/20 16:05 04/04/20 16:05 04/04/20 16:05 04/04/20 16:05 04/04/20 16:05 General appearance: Present: mild distress, well-nourished - EENT Eyes: Present: PERRL, EOM intact - Neck Neck: Present: supple, normal ROM - Respiratory Respiratory effort: normal Respiratory: bilateral: diminished, negative: rales, rhonchi, wheezing - Cardiovascular Rhythm: regular Heart Sounds: Present: S1 & S2 - Extremities Extremities: no ischemia, No edema - Abdominal General gastrointestinal: soft, non-tender, non-distended, normal bowel sounds - Integumentary Integumentary: Present: clear, warm - Psychiatric Psychiatric: appropriate mood/affect, cooperative - Neurologic Neurologic: CNII-XII intact, moves all extremities HEART Score - HEART Score Troponin: Troponin T 0.021 ng/mL (0.00-0.029) 03/29/20 14:40 Results - Labs CBC & Chem 7: 04/02/20 05:57 04/02/20 05:57 Labs: Laboratory Last Values WBC 4.2 K/mm3 (4.5-11.0) L 04/02/20 05:57 RBC 4.79 M/mm3 (3.65-5.03) 04/02/20 05:57 Hgb 8.7 gm/dl (10.1-14.3) L 04/02/20 05:57 Hct 29.3 % (30.3-42.9) L 04/02/20 05:57 MCV 61 fl (79-97) L 04/02/20 05:57 MCH 18 pg (28-32) L 04/02/20 05:57 MCHC 30 % (30-34) 04/02/20 05:57 RDW 25.1 % (13.2-15.2) H 04/02/20 05:57 Plt Count 133 K/mm3 (140-440) L 04/02/20 05:57 Add Manual Diff Complete 04/02/20 05:57 Total Counted 100 04/02/20 05:57 Seg Neuts % (Manual) 74.0 % (40.0-70.0) H 04/02/20 05:57 Band Neutrophils % 0 % 04/02/20 05:57 Lymphocytes % (Manual) 24.0 % (13.4-35.0) 04/02/20 05:57 Reactive Lymphs % (Man) 0 % 04/02/20 05:57 Monocytes % (Manual) 0 % (0.0-7.3) 04/02/20 05:57 Eosinophils % (Manual) 2.0 % (0.0-4.3) 04/02/20 05:57 Basophils % (Manual) 0 % (0.0-1.8) 04/02/20 05:57 Metamyelocytes % 0 % 04/02/20 05:57 Myelocytes % 0 % 04/02/20 05:57 Promyelocytes % 0 % 04/02/20 05:57 Blast Cells % 0 % 04/02/20 05:57 Nucleated RBC % Not Reportable 04/02/20 05:57 Seg Neutrophils # Man 3.1 K/mm3 (1.8-7.7) 04/02/20 05:57 Band Neutrophils # 0.0 K/mm3 04/02/20 05:57 Lymphocytes # (Manual) 1.0 K/mm3 (1.2-5.4) L 04/02/20 05:57 Abs React Lymphs (Man) 0.0 K/mm3 04/02/20 05:57 Monocytes # (Manual) 0.0 K/mm3 (0.0-0.8) 04/02/20 05:57 Eosinophils # (Manual) 0.1 K/mm3 (0.0-0.4) 04/02/20 05:57 Basophils # (Manual) 0.0 K/mm3 (0.0-0.1) 04/02/20 05:57 Metamyelocytes # 0.0 K/mm3 04/02/20 05:57 Myelocytes # 0.0 K/mm3 04/02/20 05:57 Promyelocytes # 0.0 K/mm3 04/02/20 05:57 Blast Cells # 0.0 K/mm3 04/02/20 05:57 WBC Morphology Not Reportable 04/02/20 05:57 Hypersegmented Neuts Not Reportable 04/02/20 05:57 Hyposegmented Neuts Not Reportable 04/02/20 05:57 Hypogranular Neuts Not Reportable 04/02/20 05:57 Smudge Cells Not Reportable 04/02/20 05:57 Toxic Granulation Not Reportable 04/02/20 05:57 Toxic Vacuolation Not Reportable 04/02/20 05:57 Dohle Bodies Not Reportable 04/02/20 05:57 Pelger-Huet Anomaly Not Reportable 04/02/20 05:57 Rashawn Rods Not Reportable 04/02/20 05:57 Platelet Estimate Consistent w auto 04/02/20 05:57 Clumped Platelets Not Reportable 04/02/20 05:57 Plt Clumps, EDTA Not Reportable 04/02/20 05:57 Large Platelets Not Reportable 04/02/20 05:57 Giant Platelets Not Reportable 04/02/20 05:57 Platelet Satelliting Not Reportable 04/02/20 05:57 Plt Morphology Comment Not Reportable 04/02/20 05:57 RBC Morphology Not Reportable 04/02/20 05:57 Dimorphic RBCs Not Reportable 04/02/20 05:57 Polychromasia Not Reportable 04/02/20 05:57 Hypochromasia 2+ 04/02/20 05:57 Poikilocytosis 1+ 04/02/20 05:57 Anisocytosis 2+ 04/02/20 05:57 Microcytosis 2+ 04/02/20 05:57 Macrocytosis Not Reportable 04/02/20 05:57 Spherocytes Not Reportable 04/02/20 05:57 Pappenheimer Bodies Not Reportable 04/02/20 05:57 Sickle Cells Not Reportable 04/02/20 05:57 Target Cells Not Reportable 04/02/20 05:57 Tear Drop Cells Not Reportable 04/02/20 05:57 Ovalocytes 1+ 04/02/20 05:57 Helmet Cells Not Reportable 04/02/20 05:57 Miller-Holdrege Bodies Not Reportable 04/02/20 05:57 [place] Rings Not Reportable 04/02/20 05:57 [place] Cells Not Reportable 04/02/20 05:57 Bite Cells Not Reportable 04/02/20 05:57 Crenated Cell Not Reportable 04/02/20 05:57 Elliptocytes Not Reportable 04/02/20 05:57 Acanthocytes (Spur) Not Reportable 04/02/20 05:57 Rouleaux Not Reportable 04/02/20 05:57 Hemoglobin C Crystals Not Reportable 04/02/20 05:57 Schistocytes Not Reportable 04/02/20 05:57 Malaria parasites Not Reportable 04/02/20 05:57 Edgard Bodies Not Reportable 04/02/20 05:57 Hem Pathologist Commnt No 04/02/20 05:57 PT 16.2 Sec. (12.2-14.9) H 03/29/20 07:59 INR 1.27 (0.87-1.13) H 03/29/20 07:59 APTT 29.8 Sec. (24.2-36.6) 03/29/20 07:59 ABG pH 7.409 pH Units (7.350-7.450) 04/01/20 11:08 ABG pCO2 51.9 mm Hg 04/01/20 11:08 ABG pO2 69.5 mm Hg (80.0-90.0) L 04/01/20 11:08 ABG HCO3 32.1 mmol/L (20.0-26.0) H 04/01/20 11:08 ABG O2 Saturation 96.9 % (95.0-99.0) 04/01/20 11:08 ABG O2 Content 10.4 (0.0-44) 04/01/20 11:08 ABG Base Excess 6.6 mmol/L (-2.0-3.0) H 04/01/20 11:08 ABG Hemoglobin 7.8 gm/dl (12.0-16.0) L 04/01/20 11:08 ABG Carboxyhemoglobin 2.2 % (0.0-5.0) 04/01/20 11:08 ABG Methemoglobin 0.5 % (0.0-1.5) 04/01/20 11:08 Oxyhemoglobin 94.4 % (95.0-99.0) L 04/01/20 11:08 FiO2 21 % 04/01/20 11:08 Sodium 135 mmol/L (137-145) L 04/02/20 05:57 Potassium 4.3 mmol/L (3.6-5.0) D 04/02/20 05:57 Chloride 93.1 mmol/L (98-107) L 04/02/20 05:57 Carbon Dioxide 34 mmol/L (22-30) H 04/02/20 05:57 Anion Gap 12 mmol/L 04/02/20 05:57 BUN 13 mg/dL (7-17) 04/02/20 05:57 Creatinine 0.7 mg/dL (0.6-1.2) 04/02/20 05:57 Estimated GFR > 60 ml/min 04/02/20 05:57 BUN/Creatinine Ratio 19 % 04/02/20 05:57 Glucose 99 mg/dL (65-100) 04/02/20 05:57 Calcium 8.6 mg/dL (8.4-10.2) 04/02/20 05:57 Phosphorus 4.20 mg/dL (2.5-4.5) 03/30/20 04:42 Magnesium 2.00 mg/dL (1.7-2.3) 04/02/20 05:57 Total Bilirubin 0.60 mg/dL (0.1-1.2) 04/02/20 05:57 Direct Bilirubin 0.2 mg/dL (0-0.2) 03/29/20 07:59 Indirect Bilirubin 0.5 mg/dL 03/29/20 07:59 AST 54 units/L (5-40) H 04/02/20 05:57 ALT 27 units/L (7-56) 04/02/20 05:57 Alkaline Phosphatase 134 units/L (35-129) H 04/02/20 05:57 Lactate Dehydrogenase 310 units/L (91-180) H 04/02/20 05:57 Troponin T 0.021 ng/mL (0.00-0.029) 03/29/20 14:40 NT-Pro-B Natriuret Pep 4379 pg/mL (0-450) H 03/29/20 07:59 Total Protein 8.9 g/dL (6.3-8.2) H 04/02/20 05:57 Albumin 3.1 g/dL (3.9-5) L 04/02/20 05:57 Albumin/Globulin Ratio 0.5 % 04/02/20 05:57 Urine Color Basilia (Yellow) 03/29/20 09:37 Urine Turbidity Clear (Clear) 03/29/20 09:37 Urine pH 5.0 (5.0-7.0) 03/29/20 09:37 Ur Specific [place] 1.029 (1.003-1.030) 03/29/20 09:37 Urine Protein 100 mg/dl mg/dL (Negative) 03/29/20 09:37 Urine Glucose (UA) Neg mg/dL (Negative) 03/29/20 09:37 Urine Ketones Neg mg/dL (Negative) 03/29/20 09:37 Urine Blood Sm (Negative) 03/29/20 09:37 Urine Nitrite Neg (Negative) 03/29/20 09:37 Urine Bilirubin Neg (Negative) 03/29/20 09:37 Urine Urobilinogen 4.0 mg/dL (<2.0) 03/29/20 09:37 Ur Leukocyte Esterase Neg (Negative) 03/29/20 09:37 Urine WBC (Auto) 3.0 /HPF (0.0-6.0) 03/29/20 09:37 Urine RBC (Auto) 15.0 /HPF (0.0-6.0) 03/29/20 09:37 U Epithel Cells (Auto) 2.0 /HPF (0-13.0) 03/29/20 09:37 Urine Mucus 2+ /HPF 03/29/20 09:37 Fluid Type Pleural 04/02/20 16:00 Fluid Color Yellow 04/02/20 16:00 Fluid Appearance Hazy 04/02/20 16:00 Fluid WBC 54 /mm3 04/02/20 16:00 Fluid RBC 405 /mm3 04/02/20 16:00 Fluid Seg Neutrophils 11.0 % 04/02/20 16:00 Fluid Lymphocytes 55.0 % 04/02/20 16:00 Fluid Reactive Lymphs 0 % 04/02/20 16:00 Fluid Monocytes 34.0 % 04/02/20 16:00 Fluid Eosinophils 0 % 04/02/20 16:00 Fluid Basophils 0 % 04/02/20 16:00 Urine Opiates Screen Negative 03/29/20 09:37 Urine Methadone Screen Negative 03/29/20 09:37 Ur Barbiturates Screen Negative 03/29/20 09:37 Ur Phencyclidine Scrn Negative 03/29/20 09:37 Ur Amphetamines Screen Negative 03/29/20 09:37 U Benzodiazepines Scrn Negative 03/29/20 09:37 Urine Cocaine Screen Negative 03/29/20 09:37 U Marijuana (THC) Screen Positive 03/29/20 09:37 Drugs of Abuse Note Disclamer 03/29/20 09:37 Microbiology: Microbiology 04/02/20 16:00 Pleural Fluid - Pleura,Rt Lung Body Fluid Culture - Preliminary - Diagnostic Impressions Diagnostic Impressions: Echocardiogram 03/29/20 11:07 Transthoracic Echocardiogram Indication: Hypertension BP: 176/95 Conclusions *4-chamber cardiomyopathy. *Global left ventricular systolic function is severely decreased. *The estimated ejection fraction is 25-30%. *Mild to moderate concentric left ventricular hypertrophy is observed. *There is mild mitral regurgitation. *There is mild tricuspid regurgitation. *There is mild-moderate pulmonary hypertension. *The right ventricular systolic pressure is calculated at 42 mmHg. *A significant left pleural effusion is present. *Only a trivial pericardial effusion is visualized. Findings Procedure Info: The study quality is good. Left Ventricle: The left ventricular chamber size is mildly dilated. Mild to moderate concentric left ventricular hypertrophy is observed. Global left ventricular systolic function is severely decreased. The estimated ejection fraction is 25-30%. The left ventricular diastolic filling pattern is consistent with pseudonormalization. Left Atrium: The left atrium is moderately dilated. Right Ventricle: The right ventricle is mild to moderately dilated. The right ventricular global systolic function is moderately reduced. Right Atrium: The right atrium is moderately dilated. Aortic Valve: The aortic valve is trileaflet. The aortic valve leaflets are mildly thickened. There is trace of aortic regurgitation. There is no evidence of aortic stenosis. Mitral Valve: The mitral valve leaflets are mildly thickened. There is mild mitral regurgitation. There is no evidence of mitral stenosis. Tricuspid Valve: The tricuspid valve leaflets are normal. There is mild tricuspid regurgitation. The right ventricular systolic pressure is calculated at 42 mmHg. There is evidence of mild pulmonary hypertension. There is no tricuspid stenosis. Pulmonic Valve: The pulmonic valve appears normal. There is trace pulmonic regurgitation. There is no pulmonic stenosis. Pericardium: A trivial pericardial effusion is visualized. A left pleural effusion is present. Aorta: There is no dilatation of the ascending aorta. There is no dilatation of the aortic root. Venous: The inferior vena cava appears normal in size. Measurements Chambers 2D Name Value Normal Range IVSd (2D) 1.29 cm (0.6 - 1.1) LVPWd (2D) 1.24 cm (0.6 - 1.1) LVIDd (2D) 4.1 cm (3.7 - 5.6) LVIDs (2D) 2.98 cm (2 - 3.8) LV FS (2D) 27.17 % - EF Teichholz (2D) 53.38 % - Ao root diameter (2D) 2.08 cm (2 - 3.7) Volumes/Mass Name Value Normal Range LA ESV SP 4CH (A/L) 31.23 ml - LA ESV SP 2CH (A/L) 66.04 ml - LA ESV BP (A/L) 48.25 ml - LA ESV SP 4CH (MOD) 32.48 ml - LA ESV SP 2CH (MOD) 63.12 ml - LV EDV SP 4CH (MOD) 74.94 ml - LV ESV SP 4CH (MOD) 36.6 ml - EF SP 4CH (MOD) 51.16 % - LV EDV SP 2CH (MOD) 97.97 ml - LV ESV SP 2CH (MOD) 43.65 ml - EF SP 2CH (MOD) 55.45 % - LV EDV BP 92.11 ml - LV ESV BP 43.3 ml - BP EF (MOD) 52.99 % - Diastolic/Systolic Function Name Value Normal Range MV E-wave Vmax 1.02 m/sec - MV deceleration time 101.98 msec - MV A-wave Vmax 0.51 m/sec - MV E:A ratio 2.01 ratio - Aortic Valve Name Value Normal Range AV Vmax 1.23 m/sec - AV VTI 21.91 cm - AV peak gradient 6.04 mmHg - AV mean gradient 2.91 mmHg - LVOT diameter 1.72 cm - LVOT Vmax 0.95 m/sec - LVOT VTI 16.52 cm - LVOT peak gradient 3.61 mmHg - LVOT mean gradient 1.48 mmHg - SV LVOT 38.37 ml - RADHA (continuity Vmax) 1.8 cm2 - RADHA (continuity VTI) 1.75 cm2 - Ascending Ao 1.99 cm - Tricuspid Valve Name Value Normal Range TV E-wave Vmax 0.61 m/sec - TR Vmax 3 m/sec - TR peak gradient 36.05 mmHg - RVSP 42 mmHg - Pulmonic Valve/Qp:Qs Name Value Normal Range PV Vmax 0.9 m/sec - PV peak gradient 3.23 mmHg - RVOT Vmax 0.55 m/sec - RVOT VTI 10.36 cm - RVOT peak gradient 1.2 mmHg - PV acceleration time 110.37 msec - Kemp/IV: Voiding Method Indwelling Catheter IV Catheter Type [Left INT / Saline Lock Antecubital] Active Medications - Current Medications Current Medications: Generic Name Dose Route Start Last Admin Trade Name Freq PRN Reason Stop Dose Admin Albuterol 2.5 mg 03/29/20 11:38 Proventil IH Q4H PRN Shortness Of Breath Aspirin 81 mg 03/29/20 12:00 04/04/20 09:34 Halfprin Ec PO 81 mg QDAY LARA Administration Atorvastatin Calcium 40 mg 03/29/20 22:00 04/03/20 21:31 Lipitor PO 40 mg QHS LARA Administration Carvedilol 6.25 mg 03/29/20 12:00 04/04/20 09:34 Coreg PO 6.25 mg BID LARA Administration Enoxaparin Sodium 40 mg 04/03/20 22:00 04/03/20 21:38 Enoxaparin SUB-Q 40 mg QDAY@2200 LARA Administration Ferrous Sulfate 325 mg 03/29/20 12:00 04/04/20 09:34 Feosol PO 325 mg QDAY LARA Administration Furosemide 40 mg 03/29/20 11:21 04/04/20 17:10 Lasix IV 40 mg 0600,1800 LARA Administration Hydralazine HCl 5 mg 03/29/20 11:30 Apresoline IV Q4HR PRN Hypertension Lisinopril 5 mg 03/31/20 10:00 04/04/20 09:34 Zestril PO 5 mg QDAY LARA Administration Multivitamins 1 each 03/29/20 12:00 04/04/20 09:34 Theragran Tab PO 1 each QDAY LARA Administration Spironolactone 25 mg 03/31/20 10:00 04/04/20 09:34 Aldactone PO 25 mg QDAY LARA Administration
[2020-04-04] MEDS: ENOXAPARIN 40 MG/0.4 ML INJ SUB-Q SCH (21:17)
[2020-04-05] MEDS: FUROSEMIDE 40 MG/4 ML INJ IV SCH (05:39)
[2020-04-05] MEDS: SPIRONOLACTONE 25 MG TAB PO SCH (10:51)
[2020-04-05] MEDS: MULTIVITAMINS ,THERAPEUTIC TAB PO SCH (10:51)
[2020-04-05] MEDS: carvediloL 6.25 MG TAB PO SCH ×2 (10:51→21:54)
[2020-04-05] MEDS: LISINOPRIL 5 MG TAB PO SCH (10:51)
[2020-04-05] MEDS: FERROUS SULFATE 325 MG TAB PO SCH (10:51)
[2020-04-05] MEDS: ASPIRIN EC 81 MG TAB PO SCH (10:51)
--- NOTE | 2020-04-05 11:01 | Progress Note ---
Subjective Date of service: 04/05/20 Principal diagnosis: R. Pleural effusion; Ac. hypoxemic Resp Failure; Alcohol abuse Interval history: Assessment and Plan - Patient Problems (1) Anasarca/CMP, Dilated CMP EF 25-30%. Current Visit: Yes Status: Acute Plan to address problem: Patient presented with fluid overload, anasarca and a dilated cardiomyopathy with left ventricular ejection fraction 25 to 30%. We will continue medical therapy, D/C milrinone today, start lasix 80mg PO BID, change lisinopril to diovan BID dosing and titrate as outpt, consider entresto as outpt, easier transition with ARB Subjective Date of service: 04/03/20 Principal diagnosis: CHF Exacerbation Interval history: Sitting in chair, no orthopnea, edema stable, transition to oral meds, D/C possibly in AM. Objective Vital Signs Temp Pulse Resp BP Pulse Ox 04/05/20 07:38 98.0 F 80 20 150/69 100 04/05/20 05:04 98.6 F 80 20 137/60 99 04/05/20 04:00 87 04/05/20 00:01 97.6 F 87 20 131/56 100 04/04/20 20:42 102.8 F H 101 H 20 201/114 99 04/04/20 20:35 98.8 F 89 20 135/66 99 04/04/20 16:05 98.3 F 85 20 128/72 98 04/04/20 11:40 98.3 F 81 20 138/60 100 - Physical Examination General: No Apparent Distress HEENT: Positive: PERRL Neck: Positive: trachea midline Cardiac: Positive: Reg Rate and Rhythm, S1/S2 Lungs: Positive: Normal Exam Neuro: Positive: Grossly Intact Abdomen: Positive: Distended Skin: Positive: Clear Extremities: Present: +1 Edema, Other (bilateral LE blisters and ulcers)
[2020-04-05] MEDS: VALSARTAN 40 MG TAB PO SCH ×2 (15:20→21:53)
[2020-04-05] MEDS: FUROSEMIDE 40 MG TAB PO SCH (18:06)
--- NOTE | 2020-04-05 20:20 | Progress Note ---
Assessment and Plan Assessment and plan: Cardiology recommend additional 3 days of milrinone from - Completed second round of milrinone for 3 days on 04/04/2020 Patient feels better --Acute on chronic systolic CHF EF 25 to 30%[ Current Visit: Yes Status: Acute Plan to address problem: Due to noncompliance with medical regimen-diuretics -Will continue ASA, BB, diuretics and statin -Managed with milrinone drip 3 days -additional 3 days of milrinone per cardiology --Acute respiratory failure with hypoxia Current Visit: Yes Status: Acute Plan to address problem: respiratory distress likely 2/2 acute CHF -Continue diuretic, -Nebulizers ECHO for LV function ejection fraction. --Pleural effusion: Thoracentesis s/p removal of 1.3 L of pleural fluid Fluid analysis -Mild to moderate ascites ; on abdominal ultrasound No indication for abdominal paracentesis I will continue diuretics --Protein-calorie malnutrition, mild Current Visit: Yes Status: Acute Plan to address problem: Discussed healthy diet advised on Nutrition supplement Will Consult condenser cleaner --Anemia Current Visit: Yes Status: Acute Plan to address problem: ? cause malnutrition/iron defficiency/chronic illness Monitor H/H Will transfuse PRBCs if needed Start iron and MVI supplement --Alcohol abuse Current Visit: Yes Status: Acute Plan to address problem: Discussed alcohol use cessation Advised strongly to quit alcohol intake Seek alcohol rehabilitation if needed --Hypertension Current Visit: Yes Status: Acute Plan to address problem: Monitor blood pressure resume home bp med ECHO -f/u with result EKG done-no st depression or elevation Chest x-ray bilateral pleural effusion and pulmonary edema. --DVT prophylaxis Current Visit: Yes Status: Acute Plan to address problem: Lovenox Monitor closely and adjust management as needed Plan of care reviewed with the patient and her nurse 04/02; patient completed 3 days of milrinone per cardiology, recommend additional 3 days Started second round of milrinone 04/03; patient complains of abdominal bloating, abdominal ultrasound to rule out ascites 04/04; abdominal ultrasound mild to moderate ascites, no indication for abdominal paracentesis 04/05; DC home tomorrow History Interval history: I have seen and examined the patient Patient feels better no new complaints Completed 2 rounds of 3 days of each of milrinone drip per cardiology Denies chest pain or shortness of breath Vital signs noted Hospitalist Physical - Constitutional Vitals: Temp Pulse Resp BP Pulse Ox 98.7 F 84 18 156/72 98 04/05/20 20:01 04/05/20 20:01 04/05/20 20:01 04/05/20 20:01 04/05/20 20:01 General appearance: Present: no acute distress, well-nourished - EENT Eyes: Present: PERRL, EOM intact - Neck Neck: Present: supple, normal ROM - Respiratory Respiratory effort: normal Respiratory: bilateral: diminished, negative: rales, rhonchi, wheezing - Cardiovascular Rhythm: regular Heart Sounds: Present: S1 & S2 - Extremities Extremities: no ischemia, No edema - Abdominal General gastrointestinal: soft, non-tender, non-distended, normal bowel sounds - Integumentary Integumentary: Present: clear, warm - Psychiatric Psychiatric: appropriate mood/affect, cooperative - Neurologic Neurologic: moves all extremities HEART Score - HEART Score Troponin: Troponin T 0.021 ng/mL (0.00-0.029) 03/29/20 14:40 Results - Labs CBC & Chem 7: 04/02/20 05:57 04/02/20 05:57 Labs: Laboratory Last Values WBC 4.2 K/mm3 (4.5-11.0) L 04/02/20 05:57 RBC 4.79 M/mm3 (3.65-5.03) 04/02/20 05:57 Hgb 8.7 gm/dl (10.1-14.3) L 04/02/20 05:57 Hct 29.3 % (30.3-42.9) L 04/02/20 05:57 MCV 61 fl (79-97) L 04/02/20 05:57 MCH 18 pg (28-32) L 04/02/20 05:57 MCHC 30 % (30-34) 04/02/20 05:57 RDW 25.1 % (13.2-15.2) H 04/02/20 05:57 Plt Count 133 K/mm3 (140-440) L 04/02/20 05:57 Add Manual Diff Complete 04/02/20 05:57 Total Counted 100 04/02/20 05:57 Seg Neuts % (Manual) 74.0 % (40.0-70.0) H 04/02/20 05:57 Band Neutrophils % 0 % 04/02/20 05:57 Lymphocytes % (Manual) 24.0 % (13.4-35.0) 04/02/20 05:57 Reactive Lymphs % (Man) 0 % 04/02/20 05:57 Monocytes % (Manual) 0 % (0.0-7.3) 04/02/20 05:57 Eosinophils % (Manual) 2.0 % (0.0-4.3) 04/02/20 05:57 Basophils % (Manual) 0 % (0.0-1.8) 04/02/20 05:57 Metamyelocytes % 0 % 04/02/20 05:57 Myelocytes % 0 % 04/02/20 05:57 Promyelocytes % 0 % 04/02/20 05:57 Blast Cells % 0 % 04/02/20 05:57 Nucleated RBC % Not Reportable 04/02/20 05:57 Seg Neutrophils # Man 3.1 K/mm3 (1.8-7.7) 04/02/20 05:57 Band Neutrophils # 0.0 K/mm3 04/02/20 05:57 Lymphocytes # (Manual) 1.0 K/mm3 (1.2-5.4) L 04/02/20 05:57 Abs React Lymphs (Man) 0.0 K/mm3 04/02/20 05:57 Monocytes # (Manual) 0.0 K/mm3 (0.0-0.8) 04/02/20 05:57 Eosinophils # (Manual) 0.1 K/mm3 (0.0-0.4) 04/02/20 05:57 Basophils # (Manual) 0.0 K/mm3 (0.0-0.1) 04/02/20 05:57 Metamyelocytes # 0.0 K/mm3 04/02/20 05:57 Myelocytes # 0.0 K/mm3 04/02/20 05:57 Promyelocytes # 0.0 K/mm3 04/02/20 05:57 Blast Cells # 0.0 K/mm3 04/02/20 05:57 WBC Morphology Not Reportable 04/02/20 05:57 Hypersegmented Neuts Not Reportable 04/02/20 05:57 Hyposegmented Neuts Not Reportable 04/02/20 05:57 Hypogranular Neuts Not Reportable 04/02/20 05:57 Smudge Cells Not Reportable 04/02/20 05:57 Toxic Granulation Not Reportable 04/02/20 05:57 Toxic Vacuolation Not Reportable 04/02/20 05:57 Dohle Bodies Not Reportable 04/02/20 05:57 Pelger-Huet Anomaly Not Reportable 04/02/20 05:57 Rsahawn Rods Not Reportable 04/02/20 05:57 Platelet Estimate Consistent w auto 04/02/20 05:57 Clumped Platelets Not Reportable 04/02/20 05:57 Plt Clumps, EDTA Not Reportable 04/02/20 05:57 Large Platelets Not Reportable 04/02/20 05:57 Giant Platelets Not Reportable 04/02/20 05:57 Platelet Satelliting Not Reportable 04/02/20 05:57 Plt Morphology Comment Not Reportable 04/02/20 05:57 RBC Morphology Not Reportable 04/02/20 05:57 Dimorphic RBCs Not Reportable 04/02/20 05:57 Polychromasia Not Reportable 04/02/20 05:57 Hypochromasia 2+ 04/02/20 05:57 Poikilocytosis 1+ 04/02/20 05:57 Anisocytosis 2+ 04/02/20 05:57 Microcytosis 2+ 04/02/20 05:57 Macrocytosis Not Reportable 04/02/20 05:57 Spherocytes Not Reportable 04/02/20 05:57 Pappenheimer Bodies Not Reportable 04/02/20 05:57 Sickle Cells Not Reportable 04/02/20 05:57 Target Cells Not Reportable 04/02/20 05:57 Tear Drop Cells Not Reportable 04/02/20 05:57 Ovalocytes 1+ 04/02/20 05:57 Helmet Cells Not Reportable 04/02/20 05:57 Miller-[place] Bodies Not Reportable 04/02/20 05:57 [place] Rings Not Reportable 04/02/20 05:57 Brian Cells Not Reportable 04/02/20 05:57 Bite Cells Not Reportable 04/02/20 05:57 Crenated Cell Not Reportable 04/02/20 05:57 Elliptocytes Not Reportable 04/02/20 05:57 Acanthocytes (Spur) Not Reportable 04/02/20 05:57 Rouleaux Not Reportable 04/02/20 05:57 Hemoglobin C Crystals Not Reportable 04/02/20 05:57 Schistocytes Not Reportable 04/02/20 05:57 Malaria parasites Not Reportable 04/02/20 05:57 Edgard Bodies Not Reportable 04/02/20 05:57 Hem Pathologist Commnt No 04/02/20 05:57 PT 16.2 Sec. (12.2-14.9) H 03/29/20 07:59 INR 1.27 (0.87-1.13) H 03/29/20 07:59 APTT 29.8 Sec. (24.2-36.6) 03/29/20 07:59 ABG pH 7.409 pH Units (7.350-7.450) 04/01/20 11:08 ABG pCO2 51.9 mm Hg 04/01/20 11:08 ABG pO2 69.5 mm Hg (80.0-90.0) L 04/01/20 11:08 ABG HCO3 32.1 mmol/L (20.0-26.0) H 04/01/20 11:08 ABG O2 Saturation 96.9 % (95.0-99.0) 04/01/20 11:08 ABG O2 Content 10.4 (0.0-44) 04/01/20 11:08 ABG Base Excess 6.6 mmol/L (-2.0-3.0) H 04/01/20 11:08 ABG Hemoglobin 7.8 gm/dl (12.0-16.0) L 04/01/20 11:08 ABG Carboxyhemoglobin 2.2 % (0.0-5.0) 04/01/20 11:08 ABG Methemoglobin 0.5 % (0.0-1.5) 04/01/20 11:08 Oxyhemoglobin 94.4 % (95.0-99.0) L 04/01/20 11:08 FiO2 21 % 04/01/20 11:08 Sodium 135 mmol/L (137-145) L 04/02/20 05:57 Potassium 4.3 mmol/L (3.6-5.0) D 04/02/20 05:57 Chloride 93.1 mmol/L (98-107) L 04/02/20 05:57 Carbon Dioxide 34 mmol/L (22-30) H 04/02/20 05:57 Anion Gap 12 mmol/L 04/02/20 05:57 BUN 13 mg/dL (7-17) 04/02/20 05:57 Creatinine 0.7 mg/dL (0.6-1.2) 04/02/20 05:57 Estimated GFR > 60 ml/min 04/02/20 05:57 BUN/Creatinine Ratio 19 % 04/02/20 05:57 Glucose 99 mg/dL (65-100) 04/02/20 05:57 Calcium 8.6 mg/dL (8.4-10.2) 04/02/20 05:57 Phosphorus 4.20 mg/dL (2.5-4.5) 03/30/20 04:42 Magnesium 2.00 mg/dL (1.7-2.3) 04/02/20 05:57 Total Bilirubin 0.60 mg/dL (0.1-1.2) 04/02/20 05:57 Direct Bilirubin 0.2 mg/dL (0-0.2) 03/29/20 07:59 Indirect Bilirubin 0.5 mg/dL 03/29/20 07:59 AST 54 units/L (5-40) H 04/02/20 05:57 ALT 27 units/L (7-56) 04/02/20 05:57 Alkaline Phosphatase 134 units/L (35-129) H 04/02/20 05:57 Lactate Dehydrogenase 310 units/L (91-180) H 04/02/20 05:57 Troponin T 0.021 ng/mL (0.00-0.029) 03/29/20 14:40 NT-Pro-B Natriuret Pep 4379 pg/mL (0-450) H 03/29/20 07:59 Total Protein 8.9 g/dL (6.3-8.2) H 04/02/20 05:57 Albumin 3.1 g/dL (3.9-5) L 04/02/20 05:57 Albumin/Globulin Ratio 0.5 % 04/02/20 05:57 Urine Color Basilia (Yellow) 03/29/20 09:37 Urine Turbidity Clear (Clear) 03/29/20 09:37 Urine pH 5.0 (5.0-7.0) 03/29/20 09:37 Ur Specific [place] 1.029 (1.003-1.030) 03/29/20 09:37 Urine Protein 100 mg/dl mg/dL (Negative) 03/29/20 09:37 Urine Glucose (UA) Neg mg/dL (Negative) 03/29/20 09:37 Urine Ketones Neg mg/dL (Negative) 03/29/20 09:37 Urine Blood Sm (Negative) 03/29/20 09:37 Urine Nitrite Neg (Negative) 03/29/20 09:37 Urine Bilirubin Neg (Negative) 03/29/20 09:37 Urine Urobilinogen 4.0 mg/dL (<2.0) 03/29/20 09:37 Ur Leukocyte Esterase Neg (Negative) 03/29/20 09:37 Urine WBC (Auto) 3.0 /HPF (0.0-6.0) 03/29/20 09:37 Urine RBC (Auto) 15.0 /HPF (0.0-6.0) 03/29/20 09:37 U Epithel Cells (Auto) 2.0 /HPF (0-13.0) 03/29/20 09:37 Urine Mucus 2+ /HPF 03/29/20 09:37 Fluid Type Pleural 04/02/20 16:00 Fluid Color Yellow 04/02/20 16:00 Fluid Appearance Hazy 04/02/20 16:00 Fluid WBC 54 /mm3 04/02/20 16:00 Fluid RBC 405 /mm3 04/02/20 16:00 Fluid Seg Neutrophils 11.0 % 04/02/20 16:00 Fluid Lymphocytes 55.0 % 04/02/20 16:00 Fluid Reactive Lymphs 0 % 04/02/20 16:00 Fluid Monocytes 34.0 % 04/02/20 16:00 Fluid Eosinophils 0 % 04/02/20 16:00 Fluid Basophils 0 % 04/02/20 16:00 Urine Opiates Screen Negative 03/29/20 09:37 Urine Methadone Screen Negative 03/29/20 09:37 Ur Barbiturates Screen Negative 03/29/20 09:37 Ur Phencyclidine Scrn Negative 03/29/20 09:37 Ur Amphetamines Screen Negative 03/29/20 09:37 U Benzodiazepines Scrn Negative 03/29/20 09:37 Urine Cocaine Screen Negative 03/29/20 09:37 U Marijuana (THC) Screen Positive 03/29/20 09:37 Drugs of Abuse Note Disclamer 03/29/20 09:37 Microbiology: Microbiology 04/02/20 16:00 Pleural Fluid - Pleura,Rt Lung Body Fluid Culture - Preliminary - Diagnostic Impressions Diagnostic Impressions: Echocardiogram 03/29/20 11:07 Transthoracic Echocardiogram Indication: Hypertension BP: 176/95 Conclusions *4-chamber cardiomyopathy. *Global left ventricular systolic function is severely decreased. *The estimated ejection fraction is 25-30%. *Mild to moderate concentric left ventricular hypertrophy is observed. *There is mild mitral regurgitation. *There is mild tricuspid regurgitation. *There is mild-moderate pulmonary hypertension. *The right ventricular systolic pressure is calculated at 42 mmHg. *A significant left pleural effusion is present. *Only a trivial pericardial effusion is visualized. Findings Procedure Info: The study quality is good. Left Ventricle: The left ventricular chamber size is mildly dilated. Mild to moderate concentric left ventricular hypertrophy is observed. Global left ventricular systolic function is severely decreased. The estimated ejection fraction is 25-30%. The left ventricular diastolic filling pattern is consistent with pseudonormalization. Left Atrium: The left atrium is moderately dilated. Right Ventricle: The right ventricle is mild to moderately dilated. The right ventricular global systolic function is moderately reduced. Right Atrium: The right atrium is moderately dilated. Aortic Valve: The aortic valve is trileaflet. The aortic valve leaflets are mildly thickened. There is trace of aortic regurgitation. There is no evidence of aortic stenosis. Mitral Valve: The mitral valve leaflets are mildly thickened. There is mild mitral regurgitation. There is no evidence of mitral stenosis. Tricuspid Valve: The tricuspid valve leaflets are normal. There is mild tricuspid regurgitation. The right ventricular systolic pressure is calculated at 42 mmHg. There is evidence of mild pulmonary hypertension. There is no tricuspid stenosis. Pulmonic Valve: The pulmonic valve appears normal. There is trace pulmonic regurgitation. There is no pulmonic stenosis. Pericardium: A trivial pericardial effusion is visualized. A left pleural effusion is present. Aorta: There is no dilatation of the ascending aorta. There is no dilatation of the aortic root. Venous: The inferior vena cava appears normal in size. Measurements Chambers 2D Name Value Normal Range IVSd (2D) 1.29 cm (0.6 - 1.1) LVPWd (2D) 1.24 cm (0.6 - 1.1) LVIDd (2D) 4.1 cm (3.7 - 5.6) LVIDs (2D) 2.98 cm (2 - 3.8) LV FS (2D) 27.17 % - EF Teichholz (2D) 53.38 % - Ao root diameter (2D) 2.08 cm (2 - 3.7) Volumes/Mass Name Value Normal Range LA ESV SP 4CH (A/L) 31.23 ml - LA ESV SP 2CH (A/L) 66.04 ml - LA ESV BP (A/L) 48.25 ml - LA ESV SP 4CH (MOD) 32.48 ml - LA ESV SP 2CH (MOD) 63.12 ml - LV EDV SP 4CH (MOD) 74.94 ml - LV ESV SP 4CH (MOD) 36.6 ml - EF SP 4CH (MOD) 51.16 % - LV EDV SP 2CH (MOD) 97.97 ml - LV ESV SP 2CH (MOD) 43.65 ml - EF SP 2CH (MOD) 55.45 % - LV EDV BP 92.11 ml - LV ESV BP 43.3 ml - BP EF (MOD) 52.99 % - Diastolic/Systolic Function Name Value Normal Range MV E-wave Vmax 1.02 m/sec - MV deceleration time 101.98 msec - MV A-wave Vmax 0.51 m/sec - MV E:A ratio 2.01 ratio - Aortic Valve Name Value Normal Range AV Vmax 1.23 m/sec - AV VTI 21.91 cm - AV peak gradient 6.04 mmHg - AV mean gradient 2.91 mmHg - LVOT diameter 1.72 cm - LVOT Vmax 0.95 m/sec - LVOT VTI 16.52 cm - LVOT peak gradient 3.61 mmHg - LVOT mean gradient 1.48 mmHg - SV LVOT 38.37 ml - RADHA (continuity Vmax) 1.8 cm2 - RADHA (continuity VTI) 1.75 cm2 - Ascending Ao 1.99 cm - Tricuspid Valve Name Value Normal Range TV E-wave Vmax 0.61 m/sec - TR Vmax 3 m/sec - TR peak gradient 36.05 mmHg - RVSP 42 mmHg - Pulmonic Valve/Qp:Qs Name Value Normal Range PV Vmax 0.9 m/sec - PV peak gradient 3.23 mmHg - RVOT Vmax 0.55 m/sec - RVOT VTI 10.36 cm - RVOT peak gradient 1.2 mmHg - PV acceleration time 110.37 msec - Kemp/IV: Voiding Method Indwelling Catheter IV Catheter Type [Left INT / Saline Lock Antecubital] Active Medications - Current Medications Current Medications: Generic Name Dose Route Start Last Admin Trade Name Freq PRN Reason Stop Dose Admin Albuterol 2.5 mg 03/29/20 11:38 Proventil IH Q4H PRN Shortness Of Breath Aspirin 81 mg 03/29/20 12:00 04/05/20 10:51 Halfprin Ec PO 81 mg QDAY LARA Administration Atorvastatin Calcium 40 mg 03/29/20 22:00 04/04/20 21:17 Lipitor PO 40 mg QHS LARA Administration Carvedilol 6.25 mg 03/29/20 12:00 04/05/20 10:51 Coreg PO 6.25 mg BID LARA Administration Enoxaparin Sodium 40 mg 04/03/20 22:00 04/04/20 21:17 Enoxaparin SUB-Q 40 mg QDAY@2200 LARA Administration Ferrous Sulfate 325 mg 03/29/20 12:00 04/05/20 10:51 Feosol PO 325 mg QDAY LARA Administration Furosemide 80 mg 04/05/20 18:00 04/05/20 18:06 Lasix PO 80 mg 0600,1800 LARA Administration Hydralazine HCl 5 mg 03/29/20 11:30 Apresoline IV Q4HR PRN Hypertension Multivitamins 1 each 03/29/20 12:00 04/05/20 10:51 Theragran Tab PO 1 each QDAY LARA Administration Spironolactone 25 mg 03/31/20 10:00 04/05/20 10:51 Aldactone PO 25 mg QDAY LARA Administration Valsartan 40 mg 04/05/20 12:00 04/05/20 15:20 Diovan PO 40 mg BID LARA Administration
[2020-04-05] MEDS: ENOXAPARIN 40 MG/0.4 ML INJ SUB-Q SCH (21:54)
[2020-04-06] MEDS: FUROSEMIDE 40 MG TAB PO SCH (06:31)
--- NOTE | 2020-04-06 08:33 | Discharge Summary ---
Providers - Providers Date of Admission: 03/30/20 14:45 Date of discharge: 04/06/20 Attending physician: THEODORE BAUM 03/29/20 11:22 Consult to Physician [CONS] Stat Comment: Consulting Provider: JUAN RAMOS Physician Instructions: Reason For Exam: HTN 03/31/20 06:41 Consult to Physician [CONS] Routine Comment: Consulting Provider: JAK ALTAMIRANO Physician Instructions: Reason For Exam: Rt pleural effusion 03/31/20 09:56 Consult to Wound/ET Nurse [CONS] Routine Reason For Exam: wound eval , bilateral blisters on lower heels 04/03/20 11:52 Physical Therapy Evaluation and Treat [CONS] Routine Comment: Reason For Exam: General debility [facility] Hospitalization Condition: Stable Disposition: DC-01 TO HOME OR SELFCARE Time spent for discharge: 32 min Core Measure Documentation - Palliative Care Palliative Care/ Comfort Measures: Not Applicable - Core Measures Any of the following diagnoses?: heart failure - Heart Failure Discharge Requirements SHARRON/ARB for LVSD if EF <40%: Yes Beta memo at discharge: Yes Exam - Constitutional Vitals: Temp Pulse Resp BP Pulse Ox 98.2 F 80 20 145/79 100 04/06/20 04:57 04/06/20 06:00 04/06/20 04:57 04/06/20 04:57 04/06/20 04:57 General appearance: Present: no acute distress, well-nourished - EENT Eyes: Present: PERRL, EOM intact - Neck Neck: Present: supple, normal ROM - Respiratory Respiratory effort: normal Respiratory: bilateral: diminished, negative: rales, rhonchi, wheezing - Cardiovascular Rhythm: regular Heart Sounds: Present: S1 & S2 - Extremities Extremities: no ischemia, No edema - Abdominal General gastrointestinal: Present: soft, non-tender, non-distended, normal bowel sounds - Integumentary Integumentary: Present: clear, warm - Musculoskeletal Musculoskeletal: strength equal bilaterally - Psychiatric Psychiatric: appropriate mood/affect, cooperative - Neurologic Neurologic: CNII-XII intact, moves all extremities Plan Activity: advance as tolerated Diet: low salt, other (Cardiac diet ) Special Instructions: smoking cessation Additional Instructions: Advised smoking cessation. Advised to comply with medications diet and follow-up visits. Low-sodium diet Follow up with: [facility] HANY [Primary Care Provider] - 3-5 Days JUAN RAMOS MD [Staff Physician] - 7 Days JAK ALTAMIRANO MD [Staff Physician] - 7 Days Prescriptions: Spironolactone [Aldactone] 25 mg PO QDAY #30 tablet carvediloL [Coreg] 6.25 mg PO BID #60 tablet Valsartan [Diovan] 40 mg PO BID #60 tablet Aspirin EC [Halfprin EC] 81 mg PO QDAY #30 tablet Furosemide [Lasix TAB] 80 mg PO 0600,1800 #60 tablet AtorvaSTATin [Lipitor] 40 mg PO QHS #30 tablet
[2020-04-06] MEDS: carvediloL 6.25 MG TAB PO SCH (09:22)
[2020-04-06] MEDS: FERROUS SULFATE 325 MG TAB PO SCH (09:22)
[2020-04-06] MEDS: VALSARTAN 40 MG TAB PO SCH (09:22)
[2020-04-06] MEDS: SPIRONOLACTONE 25 MG TAB PO SCH (09:22)
[2020-04-06] MEDS: ASPIRIN EC 81 MG TAB PO SCH (09:22)
[2020-04-06 09:23] VITALS: BP 143/65
[2020-04-06] MEDS: MULTIVITAMINS ,THERAPEUTIC TAB PO SCH (09:23)
--- NOTE | 2020-04-06 11:48 | Progress Note ---
Assessment and Plan - Patient Problems (1) Anasarca Current Visit: Yes Status: Acute Plan to address problem: Patient presented with fluid overload, anasarca and a dilated cardiomyopathy with left ventricular ejection fraction 25 to 30%. We will continue oral, gu ideline directed medical therapy, salt restricted diet and close outpatient cardiac follow-up. Patient is okay for cardiac discharge. Subjective Date of service: 04/06/20 Principal diagnosis: R. Pleural effusion; Ac. hypoxemic Resp Failure; Alcohol abuse Interval history: Patient is comfortable, no new cardiac complaints, edema is largely resolved, and milrinone is stopped. Abdominal distention is still present but improved. It will be recalled that the abdominal ultrasound reported only mild to moderate ascites. Objective Vital Signs Temp Pulse Resp BP Pulse Ox 04/06/20 09:22 81 143/65 04/06/20 06:00 80 04/06/20 04:57 98.2 F 81 20 145/79 100 04/05/20 23:22 98.1 F 82 18 136/49 96 04/05/20 21:54 82 156/72 04/05/20 21:53 82 156/72 04/05/20 20:01 98.7 F 84 18 156/72 98 04/05/20 15:58 98.3 F 85 20 144/72 98 04/05/20 12:07 98.4 F 79 20 144/69 98 - Physical Examination General: No Apparent Distress HEENT: Positive: PERRL Neck: Positive: trachea midline Cardiac: Positive: Reg Rate and Rhythm Lungs: Positive: Decreased Breath Sounds Neuro: Positive: Grossly Intact Abdomen: Positive: Distended Skin: Positive: Clear Extremities: Present: edema (trace), Other (bilateral LE blisters and ulcers)
--- NOTE | 2020-04-06 14:51 | Progress Note ---
Assessment and Plan Patient alert, awake and resting on roomair. . No acute respiratory distress at rest. Patient afebrile, No leukocytosis. Ultrasound of chest reported Moderately large right pleural effusion with an estimated volume of 1903 mL. Patient undergone right thoracentesis. Reported cell count wbc 54 , RBC 405 in pleural fluid. Rest of the results pending. Post thoracentesis chest xray Reported Satisfactory postthoracentesis appearance. No pneumothorax. ABG ABG pH 7.409 pH Units (7.350-7.450) 04/01/20 11:08 ABG pCO2 51.9 mm Hg 04/01/20 11:08 ABG pO2 69.5 mm Hg (80.0-90.0) L 04/01/20 11:08 ABG O2 Saturation 96.9 % (95.0-99.0) 04/01/20 11:08 On room air. - Patient Problems (1) Acute respiratory distress Current Visit: Yes Status: Acute Plan to address problem: O2 2 litres via nasal canula Albuterol/atrovent aerosol treatments (2) Alcohol abuse Current Visit: Yes Status: Acute Plan to address problem: Management as per primary care. (3) CHF exacerbation Current Visit: Yes Status: Acute Plan to address problem: Management as per cardiology. (4) Hypertension Current Visit: Yes Status: Acute Plan to address problem: Management as per primary care. (5) Pleural effusion, right Current Visit: Yes Status: Acute Plan to address problem: Pleural effusion likely secondary to ascitis. Patient undergone right thoracentesis. Reported cell count wbc 54 , RBC 405 in pleural fluid. Rest of the results pending. Subjective Date of service: 04/06/20 Principal diagnosis: R. Pleural effusion; Ac. hypoxemic Resp Failure; Alcohol abuse Interval history: Patient alert, awake and resting on roomair. . No acute respiratory distress at rest. Patient afebrile, No leukocytosis. Ultrasound of chest reported Moderately large right pleural effusion with an estimated volume of 1903 mL. P atient undergone right thoracentesis. Reported cell count wbc 54 , RBC 405 in pleural fluid. Rest of the results pending. Post thoracentesis chest xray Reported Satisfactory postthoracentesis appearance. No pneumothorax. ABG ABG pH 7.409 pH Units (7.350-7.450) 04/01/20 11:08 ABG pCO2 51.9 mm Hg 04/01/20 11:08 ABG pO2 69.5 mm Hg (80.0-90.0) L 04/01/20 11:08 ABG O2 Saturation 96.9 % (95.0-99.0) 04/01/20 11:08 On room air. Objective Vital Signs - 12hr 04/06/20 04/06/20 04/06/20 04:57 06:00 09:22 Temperature 98.2 F Pulse Rate 81 80 81 Respiratory 20 Rate Blood Pressure 145/79 143/65 O2 Sat by Pulse 100 Oximetry Constitutional: no acute distress, alert Eyes: non-icteric ENT: oropharynx moist Neck: supple Effort: mildly labored Ascultation: Bilateral: diminished breath sounds (at the bases.) Cardiovascular: regular rate and rhythm, other (S1,S2) Gastrointestinal: hypoactive bowel sounds, tender, other (Distended, Ascites.) Integumentary: normal, decubitus ulcer, other (Bullous lesins at the ankles.) Extremities: no cyanosis, edema Neurologic: normal mental status, non-focal exam, pupils equal and round Psychiatric: anxious CBC and BMP: 04/02/20 05:57 04/02/20 05:57 ABG, PT/INR, D-dimer: ABG ABG pH 7.409 pH Units (7.350-7.450) 04/01/20 11:08 ABG pCO2 51.9 mm Hg 04/01/20 11:08 ABG pO2 69.5 mm Hg (80.0-90.0) L 04/01/20 11:08 ABG O2 Saturation 96.9 % (95.0-99.0) 04/01/20 11:08 Abnormal lab findings: Abnormal Labs 03/29/20 03/29/20 03/29/20 05:21 05:21 07:59 WBC RBC 5.12 H Hgb 9.1 L Hct 30.1 L MCV 59 L MCH 18 L RDW 26.3 H Plt Count Seg Neuts % (Manual) 80.0 H Lymphocytes % (Manual) 9.0 L Lymphocytes # (Manual) 0.4 L PT 16.2 H INR 1.27 H ABG pO2 ABG HCO3 ABG Base Excess ABG Hemoglobin Oxyhemoglobin Sodium Potassium 3.5 L Chloride Carbon Dioxide 31 H AST Alkaline Phosphatase Lactate Dehydrogenase NT-Pro-B Natriuret Pep Total Protein Albumin 03/29/20 04/01/20 04/02/20 07:59 11:08 05:57 WBC 4.2 L RBC Hgb 8.7 L Hct 29.3 L MCV 61 L MCH 18 L RDW 25.1 H Plt Count 133 L Seg Neuts % (Manual) 74.0 H Lymphocytes % (Manual) Lymphocytes # (Manual) 1.0 L PT INR ABG pO2 69.5 L ABG HCO3 32.1 H ABG Base Excess 6.6 H ABG Hemoglobin 7.8 L Oxyhemoglobin 94.4 L Sodium Potassium Chloride Carbon Dioxide AST Alkaline Phosphatase 134 H Lactate Dehydrogenase NT-Pro-B Natriuret Pep 4379 H Total Protein 9.8 H Albumin 3.4 L 04/02/20 04/02/20 05:57 05:57 WBC RBC Hgb Hct MCV MCH RDW Plt Count Seg Neuts % (Manual) Lymphocytes % (Manual) Lymphocytes # (Manual) PT INR ABG pO2 ABG HCO3 ABG Base Excess ABG Hemoglobin Oxyhemoglobin Sodium 135 L Potassium Chloride 93.1 L Carbon Dioxide 34 H AST 54 H Alkaline Phosphatase 134 H Lactate Dehydrogenase 310 H NT-Pro-B Natriuret Pep Total Protein 8.9 H Albumin 3.1 L Chest x-ray: report reviewed, image reviewed Additional Studies: CHEST 1 VIEW 12/03/19 INDICATION: post thoracentesis. COMPARISON: 03/29/2020 FINDINGS: Support devices: None. Heart: Stable. Lungs/Pleura: Previously seen right pleural effusion has significantly decreased. There is no pneumothorax. There is mild atelectasis versus reexpansion pulmonary edema in the right lung base. IMPRESSION: 1. Satisfactory postthoracentesis appearance. No pneumothorax.
== END 2020-04-06 18:06 | disposition home or self-care (01) | DRG 291 ==
LOC: ED 04:19 → 4A 10:45 → OBSVTOIN 03-30 14:45
PROVIDERS: ADMIT Internal Medicine; ATTEND Internal Medicine
PROC: 4A033R1 Measurement of Arterial Saturation, Peripheral, Percutaneous Approach (ICD-10-PCS; 2020-04-01)
PROC: 0W993ZZ Drainage of Right Pleural Cavity, Percutaneous Approach (ICD-10-PCS; principal; 2020-04-02)
DX: I11.0 Hypertensive heart disease with heart failure (principal); J96.01 Acute respiratory failure with hypoxia; E44.1 Mild protein-calorie malnutrition; R18.8 Other ascites; I50.23 Acute on chronic systolic (congestive) heart failure; I42.0 Dilated cardiomyopathy; F17.200 Nicotine dependence, unspecified, uncomplicated; D64.9 Anemia, unspecified; F10.10 Alcohol abuse, uncomplicated; Z91.14 Patient's other noncompliance with medication regimen; Z68.27 Body mass index [BMI] 27.0-27.9, adult; Z82.49 Family history of ischemic heart disease and other diseases of the circulatory system; Z79.899 Other long term (current) drug therapy; I25.2 Old myocardial infarction
CPT/HCPCS: 32555; 36415; 36600; 71045; 76604; 76705; 80048; 80053; 80076; 80307; 81001; 82803; 83605; 83615; 83735; 83880; 84100; 84160; 84484; 85007; 85025; 85610; 85730; 87116; 88112; 88305; 89051; 93005; 93306; 94640; 96374; 96375; G0378; A9270-GY; J1650; J1940; J2260; J2270; J2405